=== PATIENT | male | born 1980 | race Caucasian/White ===

== ENCOUNTER 2023-08-02 14:40 | Emergency (ER) | payer BC, SELFPAY ==
[2023-08-02 14:45] VITALS: BP 150/98; PULSE 95; TEMP 36.7; O2SAT 96
--- NOTE | 2023-08-02 14:50 | XR_ITS ---
[facility] [id number] Patient Name: TIFFANIE PEACOCK MRN: [id number] date: 1980 Sex: M Assigned Patient Location: ER Current Patient Location: ER Accession/Order Number: [id number] Exam Date: 08/02/2023 15:00 Report Date: 08/02/2023 15:38 At the request of: ELLEN SAM Procedure: XR tibia fibula RT 2V EXAM: XR tibia fibula RT 2V HISTORY: fall COMPARISON: None. TECHNIQUE: AP lateral right lower leg knee to ankle. FINDINGS: No fracture or focal bone lesion. Normal mineralization. Mild spurring at the knee without joint space narrowing, small joint effusion. Ankle negative, small plantar calcaneal spur XR/XR tibia fibula RT 2V IMPRESSION: Negative for fracture or focal bone lesion. Degenerative spurring ankle and plantar calcaneus. Electronically authenticated by: SOHAIL HOOKS Date: 08/02/2023 15:38
--- NOTE | 2023-08-02 14:50 | XR_ITS ---
[address] [address] Patient Name: TIFFANIE PEACOCK MRN: [id number] date: 1980 Sex: M Assigned Patient Location: ER Current Patient Location: ER Accession/Order Number: [id number] Exam Date: 08/02/2023 15:00 Report Date: 08/02/2023 15:32 At the request of: ELLEN SAM Procedure: XR knee RT 3V EXAM: XR knee RT 3V INDICATION: fall. COMPARISON: None. TECHNIQUE: Right knee, 3 views FINDINGS: No acute fracture or dislocation. Mild tricompartmental joint space narrowing with osteophyte formation. No joint effusion. Unremarkable soft tissues. XR/XR knee RT 3V IMPRESSION: 1. No acute osseous abnormality of the right knee. 2. Mild right knee osteoarthrosis. Electronically authenticated by: TALIA AGUERO Date: 08/02/2023 15:32
[2023-08-02 14:52] VITALS: O2SAT 97
--- NOTE | 2023-08-02 14:53 | ED_ITS ---
HPI HPI - Extremity Injury (Lower) General Chief Complaint: Extremity Injury, Lower Time Seen by Provider: 08/02/23 14:46 Source: patient Mode of arrival: walk-in Limitations: no limitations History of Present Illness HPI Narrative: 43-year-old male presents for pain to his right knee and to the superior lateral aspect of his right lower leg. He fell yesterday landing on this area onto c [employer]. The ankle does not hurt and he has been able to walk. No other injury was sustained. His knee was more painful today so he came in. The pain is moderate and worse when he walks or bends. Related Data Home Medications ?Medication ?Instructions ?Recorded ?Confirmed No Known Home Medications 08/02/23 08/02/23 Allergies Allergy/AdvReac Type Severity Reaction Status Date / Time cefaclor [From [facility]] Allergy Severe Rash Verified 08/02/23 14:44 iodine AdvReac Severe passing out Verified 08/02/23 14:44 Opioid HPI Opioid Management Most Recent Pain and Opioid Data: Last Pain Scale 6 08/02/23 14:52 Last ED Pain Assessment 08/02/23 14:51 Review of Systems ROS Narrative A ten point review of systems is negative except as noted above. Exam Narrative Exam Narrative: Nurses note and vital signs reviewed and patient is not hypoxic. General: The patient appears well and in no apparent distress. Patient is resting comfortably on cart. Skin: Warm, dry, no pallor noted. There is no rash noted. Head: Normocephalic, atraumatic Eye: Normal conjunctiva, no drainage Ears, Nose, Mouth, and Throat: oral mucosa is moist. Nares patent. Cardiovascular: Regular Rate and Rhythm Respiratory: Patient is in no distress, no accessory muscle use, lungs are clear to auscultation, no wheezing, rales or rhonchi Back: non-tender GI: Soft and nontender Musculoskeletal: The right knee is mildly swollen compared to the contralateral. The knee joint is stable. He has some tenderness on the superior lateral aspect of the right lower leg as well. Ankle is nontender Neurological: A&O, normal speech Psychiatric: Cooperative Constitutional Vital Signs, click to edit/add: Last Vital Signs Temp 98.1 F 08/02/23 14:45 Pulse 95 H 08/02/23 14:45 Resp 20 08/02/23 14:45 BP 150/98 H 08/02/23 14:45 Pulse Ox 97 08/02/23 14:52 O2 Del Method Room Air 08/02/23 14:52 Course Vital Signs Vital signs: Vital Signs Temperature 98.1 F 08/02/23 14:45 Pulse Rate 95 H 08/02/23 14:45 Respiratory Rate 20 08/02/23 14:45 Blood Pressure 150/98 H 08/02/23 14:45 Pulse Oximetry 96 08/02/23 14:45 Temperature 98.1 F 08/02/23 14:45 Pulse Rate 95 H 08/02/23 14:45 Respiratory Rate 20 08/02/23 14:45 Blood Pressure 150/98 H 08/02/23 14:45 Pulse Oximetry 97 08/02/23 14:52 Oxygen Delivery Method Room Air 08/02/23 14:52 MDM - Extremity Injury (Lower) MDM Narrative Medical decision making narrative: X-rays per radiologist showed no acute findings. Karson wrap applied and application checked by me and found to be appropriate, he is neurovascular intact. He was offered crutches but states he has some at home that he can utilize and orthopedic follow-up appointment was made for him. Treatment diagnosis and follow-up were discussed with the patient. Differential Diagnosis Differential diagnosis: Likely acute internal derangement of knee and other (Knee fracture, fibula fracture) Imaging Data Knee x-ray: Radiologist's impression: ITS Impressions Knee X-Ray 08/02/23 14:50 IMPRESSION: 1. No acute osseous abnormality of the right knee. 2. Mild right knee osteoarthrosis. Electronically authenticated by: TALIA AGUERO Date: 08/02/2023 15:32 Tibia/Fibula X-Ray 08/02/23 14:50 IMPRESSION: Negative for fracture or focal bone lesion. Degenerative spurring ankle and plantar calcaneus. Electronically authenticated by: SOHAIL HOOKS Date: 08/02/2023 15:38 Discharge Plan Discharge Stand Alone Forms: Portal Instructions Chief Complaint: Extremity Injury, Lower Clinical Impression: Right knee sprain Patient Disposition: Home, Self-Care Time of Disposition Decision: 15:45 Condition: Good Mode of Transportation: Private Vehicle Prescriptions / Home Meds: No Action No Known Home Medications Print Language: Portuguese Instructions: Knee Sprain (ED), Crutch Instructions (ED), How to Use an Elastic Bandage (ED) Additional Instructions: Ice and elevate. Take Motrin for swelling. See Dr. Duarte at 10:30 AM on August 09 Referrals: AUGUSTINA RUTHERFORD [Primary Care Provider] - 1 week Reid Duarte MD [Physician] - 1 week
== END 2023-08-02 15:54 | disposition home or self-care (01) ==
PROVIDERS: Emergency Provider Emergency Medicine; PCP Family Medicine
DX: S83.91XA Sprain of unspecified site of right knee, initial encounter (principal); W19.XXXA Unspecified fall, initial encounter
CPT/HCPCS: 73562; 73590; 99284

== ENCOUNTER 2024-10-27 13:14 | Outpatient (OUT) | payer OTHER, SELFPAY ==
--- OUTSIDE RECORDS SUMMARY | 2024-09-01 11:00 | XMS_ITS | Encounter Summary ---
Author Organization [facility] Address [address] [place] [address] Care Team Providers Care First Breaker Feeder Name Role Phone Chinmay Welsh MD Primary Care Provider [phone] Reason for Referral * Imaging (Routine) - Closed Specialty Diagnoses / Procedures Referred By Contac t Referred To Contact Radiology Diagnoses Coccyx pain Nontraumatic coccydynia Procedures MR lumbar spine wo contrast Jackson Busby MD [address] [facility] [address] [address] Phone: tel: fax: [facility] [address] [place] [address] Phone: tel: fax: Referral ID Status Reason Start Date Expiration Date Visits Re quested Visits Authorized [id number] Closed 09/01/2024 02/28/2025 1 1 Reason for Visit * Consultation (Routine) - Closed Specialty Diagnoses / Procedures Referred By Contac t Referred To Contact Neurology Diagnoses Coccyx pain Procedures [place] OFFICE/OUTPATIENT [facility] 60 MINUTES Chinmay Welsh MD [address] [facility] [address] [place] [address] Phone: tel: fax: Jackson Busby MD [address] [place] [address] Phone: tel: fax: Referral ID Status Reason Start Date Expiration Date V isits Requested Visits Authorized [id number] Closed Specialty Services Required 05/26/2024 11/22/2024 1 1 Encounter Details Date Type Department Care Team (Late st Contact Info) Description 09/01/2024 11:00 AM EDT Office Visit [facility] [address] [place] [address] Jackson Busby MD [address] [facility] [address] [place] [id number] Coccyx pain (Primary Dx); Nontraumatic coccydynia Social History Tobacco Use Types Packs/Day Years Used Date Smoking Tobacco: Never Smokeless Tobacco: Never Alcohol Use Standard Drinks/Week Comments Yes 2 (1 standard drink = 0.6 oz pure alcohol) Caffeine intake: 1-2 cups per day soda/pop Sex and Gender Information Value Date Recorded Sex Assigned at Not on file Legal Sex Male 7:08 PM EDT Gender Identity Not on file Sexual Orientation Not on file documented as of this encounter Last Filed Vital Signs Vital Sign Reading Time Taken Comments Blood Pressure - - Pulse - - Temperature - - Respiratory Rate - - Oxygen Saturation - - Inhaled Oxygen Concentration - - Weight 118 kg (260 lb) 09/01/2024 11:04 AM EDT Height 190.5 cm (6' 3 ) 09/01/2024 11:04 AM EDT Body Mass Index 32.5 09/01/2024 11:04 AM EDT documented in this encounter Progress Notes * Jackson Busby MD - 09/01/2024 11:00 AM EDT Images from the original note were not included. Subjective Ralph Jaquez is a 44 y.o. male who presents for Coccyx pain History of Present Illness The patient presents with a primary complaint of tailbone pain. He has been experiencing persistent tailbone pain for the past 2 to 3 years, which he initially disregarded. The pain is constant, regardless of activity or posture. Prolonged sitting exacerbates thediscomfort, while standing alleviates it. Lying flat on his back also induces pain, but sleeping onhis side provides some relief. The pain has progressively worsened over time, with minimal relief currently. Sitting on hard surfaces intensifies the pain, but standing and walking do not exacerbate it. He reports no history of trauma to the area. The onset of the pain was gradual, starting as a minor discomfort that he initially ignored. He has not taken any pain medications for this condition. He was referred to a specialist by Dr. Del Cid, who initially suspected a cyst. However, imaging studies revealed no cystic formation. He underwent an MRI approximately a year ago. He has lost significant weight, dropping from 320 pounds to 235 pounds, but has since regained 35 pounds. He reports no tingling or numbness. His current occupation involves a lot of sitting and walking, but he reports no limitations in walking distance due to the pain. SOCIAL HISTORY: Occupations: Works for the [employer] in [place]; previously worked for the [employer] for 14+ years. MEDICATIONS CURRENT MEDS: Insulin Review of Systems Const: Denies appetite change, fever, chills. Allergy: Denies medication reaction. Ocular: Denies visual acuity change. ENT: Denies hearing change. Endoc: Denies weight loss. Resp: Denies dyspnoea, wheezing. Cardiac: Denies angina, palpitations. GI: Denies nausea, vomiting. Haem: Denies bleeding. : Denies incontinence. MSK: Denies arthralgias, joint oedema. Derm: Denies rash, hair loss. Neuro: Denies ataxia, tremor. Also see HPI for elements of ROS documented therein and for details of positive findings, which shall supersede the foregoing. Objective Height 6' 3 , weight 260 lb. Physical Exam Cranial Nerve Examination CN XI: Shoulder shrug and head turn are normal. GENERAL EXAMINATION Appearance: in no acute distress, well developed, well nourished. Head: normocephalic, atraumatic. Eyes: pupils equal, round, reactive to light and accommodation. Ears: normal. Mouth: mucosa moist. Throat: clear. Neck: neck supple, full range of motion, no cervical lymphadenopathy. Skin: no suspicious lesions, warm and dry. Heart: no murmurs, regular rate and rhythm, S1, S2 normal. Lungs: clear to auscultation bilaterally. Abdomen: normal, bowel sounds present, soft, nontender, nondistended. Extremities: no clubbing, cyanosis, or edema. NEUROLOGICAL EXAMINATION Mental Status: The patient is alert and oriented to person, place, and time. Except as noted, thought content, form, and comprehension was normal. Phonation, articulation, resonance, and prosody are normal. Cranial Nerves: Pupils were 4.0 millimeters, equal, round, and reactive to light and accommodation,both directly and consensually. Visual talbot were full by confrontation. There was no ptosis; extra-ocular movements were full; and there was no nystagmus. Funduscopic exam is normal. Masseters are of normal strength. Facial movement is normal. Hearing is grossly intact. There is no dysarthria. The gag reflex is equal bilaterally. Sternocleidomastoids and trapezii are of normal strength. The tongue protrudes in the midline. Motor: Muscle testing was performed in all four extremities, including at least assembler dc field ring, finger abductors, biceps, triceps, deltoid, toe flexors and extensors, tibialis anterior, triceps surae, quadriceps femoris, biceps femoris, and iliopsoases. Tone is normal. Muscle bulk is normal. Fasciculations are not seen . Pronator drift was not evident. Sensory: Sensation to touch, temperature, and vibration was normal in the arms, legs and face. Romberg is negative. Reflexes: Biceps, triceps, brachioradialis are 2/4 bilaterally. Patellar and Achilles reflexes are 2/4 bilaterally. Plantar responses were flexor bilaterally. Coordination: Dysmetria and dysdiadochokinesia are absent. Tremor is absent; dystonia is absent; chorea is absent. Gait And Station: Station and gait are normal. Apraxia and spasticity are not evident. Arm swing isnormal. Toe, heel, and tandem walking are performed without difficulty. Musculoskeletal: Trigger-point tenderness was absent. There is no spasm of the trapezii or paraspinals. Motor Examination Muscle Bulk and Tone: Normal muscle bulk and tone. Strength: Strength is 5/5 in upper and lower extremities. -Pain to palpation of Coccyx Results Imaging - MRI of the tailbone: No cyst in the tailbone area (2022) Assessment & Plan 1. Nontraumatic coccydynia. The patient's symptoms are consistent with nontraumatic coccydynia, characterized by chronic irritation of the coccyx. The etiology could be multifactorial, potentially involving nerve irritation or chronic inflammation. Weight loss and diabetes may also contribute to the condition. A flexion-extens ion x-ray will be ordered to assess any movement in the tailbone area. Additionally, an MRI of the lumbar region will be conducted to evaluate for any changes or previously undetected abnormalities. He will be prescribed Celebrex 200 mg twice daily to determine if an anti-inflammatory medication can alleviate the symptoms. The prescription will be sent to [facility] in [place]. A note will be sent to Dr. Del Cid regarding the patient's condition and treatment plan. 2. I will obtain an MRI of the lumbar spine to assess for a structural lesion including degenerative lumbar spine disease which may be contributing to the patient's symptoms. 3. Start Celebrex 200 mg po BID 4. X-ray of lumbar 5 views with flexion and extension. Follow-up The patient will follow up in 4 weeks to review the results of the diagnostic tests and discuss theeffectiveness of the anti-inflammatory medication. This clinical note was created utilizing [employer] documentation system. All information has beenthoroughly reviewed, corrected as necessary, and authenticated by the provider to ensure accuracy and completeness. On occasion, [employer] documentation system erroneously drops words or replaces aspoken word with a similar sounding word. Please notify with any questions or concerns regarding this clinical note. documented in this encounter Plan of Treatment Upcoming Encounters Date Type Department Care Team (Late st Contact Info) Description 11/14/2024 10:30 AM EDT Evaluation [facility] [address] [facility] [address] [place] [address] Sandra Pearson, RADHA 11/18/2024 10:00 AM EDT Treatment [facility] [address] [facility] [address] [place] [address] Dread Weaver, KATINA 11/29/2024 9:00 AM EDT Office Visit [facility] [address] [facility] [address] [place] [address] Chinmay Welsh MD [address] [facility] [address] [place] [address] (Fax) 01/27/2025 11:15 AM EST Office Visit [facility] [address] [place] [address] Jackson Busby MD [address] [facility] [address], [place] [address] documented as of this encounter Results * MR lumbar spine wo contrast (09/07/2024 9:45 AM EDT) Anatomical Region Laterality Modality Spine, L-spine Magnetic Resonan ce 09/07/2024 10:3 0 AM EDT Narrative 09/07/2024 10:30 AM EDT TITLE OF EXAM: MR LUMBAR SPINE WO CONTRAST REASON FOR EXAM: Tailbone pain, no injury TECHNIQUE: Multisequence, multiplanar MRI of the lumbar spine COMPARISON: Lumbar spine radiographs 09/01/2024 FINDINGS: General findings: There are 5 included nonrib-bearing lumbar vertebrae. No fracture; normal vertebral body heights. Anatomic alignment of the vertebral bodies and posterior elements. Marrow: No appreciable signal abnormality, though evaluation is hindered on the STIR sequence by poor [id number], in part related to body habitus. Spinal canal: No mass. Normal cord signal and caliber. No thickening/clumping of cauda equina nerve roots. The conus medullaris is at the level of L1-2. There is epidural lipomatosis at L4-S1 which does not contribute to significant spinal canal stenosis. Paraspinal muscles and visualized soft tissues: Mild lower erector spinae atrophy/fatty replacement. Degenerative findings: T12-L1: Mild degenerative disc disease with reduced intervertebral space. Small broad-based disc bulging with tiny left paracentral component. Mild bilateral neural foraminal and minimal spinal canal stenosis. L1-2: Minimal disc bulging. Mild bilateral neural foraminal and minimal spinal canal stenosis. L2-3: Minimal disc bulging. Mild to moderate left and mild right neural foraminal and minimal spinal canal stenosis. L3-4: Minimal disc bulging. Mild to moderate bilateral neural foraminal stenosis. No significant spinal canal narrowing. L4-5: Mild to moderate degenerative disc disease with reduced intervertebral space. Broad-based disc bulge. Mild bilateral facet osteoarthrosis. Moderate right and mild to moderate left neural foraminal stenosis. Minimal spinal canal narrowing. L5-S1: Minimal disc bulging. Moderate right and mild left facet osteoarthrosis. Mild bilateral neural foraminal stenosis. No spinal canal narrowing. IMPRESSION: 1. No fracture or significant listhesis. 2. Degenerative changes as detailed, most significantly contributing to moderate neural foraminal stenosis on the right at L4-5. Spinal canal stenosis is no greater than minimal at any level. DICTATED ON: 09/07/2024 8:15 AM This report has been electronically signed and approved by the interpreting radiologist. Procedure Note Richmond Pierre MD - 09/07/2024 TITLE OF EXAM: MR LUMBAR SPINE WO CONTRAST REASON FOR EXAM: Tailbone pain, no injury TECHNIQUE: Multisequence, multiplanar MRI of the lumbar spine COMPARISON: Lumbar spine radiographs 09/01/2024 FINDINGS: General findings: There are 5 included nonrib-bearing lumbar vertebrae.No fracture; normal vertebral body heights. Anatomic alignment of thevertebral bodies and posterior elements. Marrow: No appreciable signal abnormality, though evaluation is hinderedon the STIR sequence by poor [id number], in part related to bodyhabitus. Spinal canal: No mass. Normal cord signal and caliber. Nothickening/clumping of cauda equina nerve roots. The conus medullaris isat the level of L1-2. There is epidural lipomatosis at L4-S1 which doesnot contribute to significant spinal canal stenosis. Paraspinal muscles and visualized soft tissues: Mild lower erector spinaeatrophy/fatty replacement. Degenerative findings: T12-L1: Mild degenerative disc disease with reduced intervertebral space.Small broad-based disc bulging with tiny left paracentral component. Mildbilateral neural foraminal and minimal spinal canal stenosis. L1-2: Minimal disc bulging. Mild bilateral neural foraminal and minimalspinal canal stenosis. L2-3: Minimal disc bulging. Mild to moderate left and mild right neuralforaminal and minimal spinal canal stenosis. L3-4: Minimal disc bulging. Mild to moderate bilateral neural foraminalstenosis. No significant spinal canal narrowing. L4-5: Mild to moderate degenerative disc disease with reducedintervertebral space. Broad-based disc bulge. Mild bilateral facetosteoarthrosis. Moderate right and mild to moderate left neural foraminalstenosis. Minimal spinal canal narrowing. L5-S1: Minimal disc bulging. Moderate right and mild left facetosteoarthrosis. Mild bilateral neural foraminal stenosis. No spinal canalnarrowing. IMPRESSION: 1. No fracture or significant listhesis. 2. Degenerative changes as detailed, most significantly contributing tomoderate neural foraminal stenosis on the right at L4-5. Spinal canalstenosis is no greater than minimal at any level. DICTATED ON: 09/07/2024 8:15 AM This report has been electronically signed and approved by theinterpreting radiologist. us Jackson Busby MD IMG MRI PROCEDURES Final Resu lt * XR lumbar spine complete 4+ views (09/01/2024 11:38 AM EDT) Anatomical Region Laterality Modality Spine, L-spine Radiographic Lilly ging 09/02/2024 3:30 PM EDT Narrative 09/02/2024 3:30 PM EDT EXAM: XR Lumbar Spine, Eight Views. REASON FOR EXAM: Mid tailbone pain, no injury FINDINGS: There is mild thoracolumbar curvature convex to the right. The alignment is normal. Vertebral body height is normal at each level. No fracture or bone destruction is evident. IMPRESSION: Negative lumbar spine series. *This report is generated using voice recognition reporting ([employer]). On occasion [employer] erroneously drops words from the report or replaces the spoken word with similar sounding words. Please call with any questions/concerns regarding this report.* Dictated and transcribed 09/02/24/dpd This report has been electronically signed and approved by the interpreting radiologist. Procedure Note Cameron Gar MD - 09/02/2024 EXAM: XR Lumbar Spine, Eight Views. REASON FOR EXAM: Mid tailbone pain, no injury FINDINGS: There is mild thoracolumbar curvature convex to the right.The alignment is normal. Vertebral body height is normal at each level. Nofracture or bone destruction is evident. IMPRESSION: Negative lumbar spine series. *This report is generated using voice recognition reporting ([employer]).On occasion [employer] erroneously drops words from the report orreplaces the spoken word with similar sounding words. Please call with anyquestions/concerns regarding this report.* Dictated and transcribed 09/02/24/dpd This report has been electronically signed and approved by theinterpreting radiologist. us Jackson Busby MD IMG XR PROCEDURES Final Resul t documented in this encounter Visit Diagnoses Diagnosis Coccyx pain- Primary Other disorder of coccyx Nontraumatic coccydynia Nontraumatic coccydynia Coccyx pain Other disorder of coccyx Nontraumatic coccydynia documented in this encounter Care Teams First Breaker Feeder Relationship Specialty Start Date End Date Chinmay Welsh MD PCP - General Family Medicine 09/18/22 documented as of this encounter
--- OUTSIDE RECORDS SUMMARY | 2024-10-26 12:00 | XMS_ITS | Encounter Summary ---
Author Organization [facility] Address [address] [place] [address] Care Team Providers Care Swage Tender Name Role Phone Chinmay Welsh MD Primary Care Provider + [phone] Reason for Referral * Consultation (Routine) - Authorized Specialty Diagnoses / Procedures Referred By Srinivasan t Referred To Contact Pain Medicine Diagnoses Spondylosis of lumbar region without myelopathy or radiculopathy Procedures [place] OFFICE/OUTPATIENT NEW [facility] 60 MINUTES Richa Banuelos NP [address], [address] [address] Phone: tel: fax: Anoop Louis MD [address] [place] [address], [address], [place] [address] Phone: tel: fax: Referral ID Status Reason Start Date Expiration Date Visits Requested Visits Authorized [id number] Authorized Specialty Services Required 10/26/2024 04/24/2025 1 1 * Rehabilitation - Outpatient (Routine) - Authorized Specialty Diagnoses / Procedures Referred By Contac t Referred To Contact Physical Therapy Diagnoses Spondylosis of lumbar region without myelopathy or radiculopathy Procedures [place] OFFICE/OUTPATIENT [facility] 60 MINUTES Richa Banuelos NP [address], [address] [address] Phone: tel: fax: Sandra Pearson PT Referral ID Status Reason Start Date Expiration Date Visits Requested Visits Authorized [id number] Authorized Specialty Services Required 11/14/2024 04/24/2025 45 45 Encounter Details Date Type Department Care Team (Latest Contact Info) Description 10/26/2024 12:00 PM EDT Office Visit [facility] [address] [place] [address] Richa Banuelos NP 5339 [facility] , [facility] [address] [place] [address] Spondylosis of lumbar region without myelopathy or radiculopathy (Primary Dx); Nontraumatic coccydynia Social History Tobacco [...] Sign Reading Time Taken Comments Blood Pressure 130/90 10/26/2024 12:06 PM EDT Pulse - - Temperature - - Respiratory Rate - - Oxygen Saturation - - Inhaled Oxygen Concentration - - Weight 118 kg (261 lb) 10/26/2024 12:06 PM EDT Height 190.5 cm (6' 3 ) 10/26/2024 12:06 PM EDT Body Mass Index 32.62 10/26/2024 12:06 PM EDT documented in this encounter Progress Notes * Richa Banuelos NP - 10/26/2024 12:00 PM EDT Images from the original note were not included. CHIEF COMPLAINT REASON FOR VISIT : Patient is here today for follow-up of the diagnosis below. I amfollowing the plan of care established by Dr Busby, 08/2024, who is present in the office today HPI: BACK PAIN -persistent tailbone pain for the past 2 to 3 years -pain has worsened over time but pretty much the same over the last year -The pain is constant, varies -sitting and laying makes the pain worse -standing will relieve the pain -no radiation into the legs -pain is aching -denies N/T -no issues with bowel or bladder -he sits at work so pain is bad by the time he gets home -sleep is poor due to shift work and pain -no injury reported CURRENT MEDICATIONS: ALLERGIES/DISCONTINUE MEDICATIONS Current Outpatient Medications Medication Instructions atorvastatin (LIPITOR) 20 mg, Oral, Daily Basaglar KwikPen 30 Units, Subcutaneous, Nightly Continuous Glucose Inspector And Sorter (FreeStyle Bhavna 2 [place]) device Use prior to each dose of insulin andas needed for symptoms Continuous Glucose Sensor (FreeStyle Bhavna 2 Sensor) misc Wear subcutaneous daily every 14 days EPINEPHrine (Epipen) 0.3 MG/0.3ML injection syringe 1 Syringe, As needed insulin lispro (HumaLOG KWIKPEN) 100 UNIT/ML injection Take sliding scale coverage subcutaneous tidwith meals; Less than 70 eat, 70-150 0(zero) units, 150-200 2 units, 200-250 4 units, >250 6 units. Maximum monthly dose 540 units losartan (COZAAR) 100 mg, Oral, Daily nebivolol (BYSTOLIC) 10 mg, Oral, Daily pen needle 32G x 6 mm misc Injection subcutaneous QID as directed pioglitazone (ACTOS) 30 mg, Oral, Daily Allergies Allergen Reactions Bee Pollen Other Reaction(s): local swelling Cefaclor Rash Iodine Rash Wound Dressing Adhesive Rash There are no discontinued medications. PAST MEDICAL HISTORY: SURGICAL/SOCIAL/FAMILY HISTORY DEPRESSION SCREEN: Past Medical History: Diagnosis Date Asthma (HCC) Body mass index (BMI) of 40.1 to 44.9 in adult ([facility]) Bone spur Insulin resistance Migraine headache Morbid obesity ([facility]) Past Surgical History: Procedure Laterality Date ADENOIDECTOMY HAND SURGERY Left [address] Barron LYMPH NODE DISSECTION 2001 from Lt. thigh MYRINGOTOMY W/ TUBES tubes in ears x 4 childhood WISDOM TOOTH EXTRACTION 2013 Social History Tobacco Use Smoking status: Never Smokeless tobacco: Never Vaping Use Vaping status: Never Used Substance Use Topics Alcohol use: Yes Alcohol/week: 2.0 standard drinks of alcohol Types: 2 Standard drinks or equivalent per week Comment: Caffeine intake: 1-2 cups per day soda/pop Drug use: Never Family History Problem Relation Name Age of Onset Other (Knee and shoulder surgery) Father Heart disease Maternal Grandmother Heart disease Maternal Grandfather Depression: Not on file REVIEW OF SYMPTOMS: Review of Systems Constitutional: Negative for chills and fever. HENT: Negative for congestion. Eyes: Negative for visual disturbance. Respiratory: Negative for cough and shortness of breath. Cardiovascular: Negative for chest pain and palpitations. Gastrointestinal: Negative for abdominal pain, nausea and vomiting. Genitourinary: Negative for difficulty urinating. Musculoskeletal: Positive for back pain. Negative for gait problem and neck pain. Neurological: Negative for dizziness, tremors, weakness, numbness and headaches. Psychiatric/Behavioral: Negative for agitation. OBJECTIVE: 09/07/2024 2:21 PM 09/01/2024 11:04 AM 05/26/2024 8:43 AM Vitals BMI 33.12 kg/m2 32.5 kg/m2 33.12 kg/m2 BSA (m2) 2.52 m2 2.5 m2 2.52 m2 Systolic 126 130 Diastolic 70 80 Height (in) 6' 3 6' 3 6' 3 Weight (lb) 265 260 265 Visit Report Report Report Report EXAM: Neurological Exam Mental Status Awake, alert and oriented to person, place and time. Recent and remote memory are intact. Speech isnormal. Language is fluent with no aphasia. Attention and concentration are normal. Fund of knowledge is appropriate for level of education. Cranial Nerves CN II: Visual talbot full to confrontation. CN III, IV, : Extraocular movements intact bilaterally. Normal lids and orbits bilaterally. Pupils equal round and reactive to light bilaterally. CN V: Facial sensation is normal. CN VII: Full and symmetric facial movement. CN VIII: Hearing is normal. CN IX, X: Palate elevates symmetrically. Normal gag reflex. CN XI: Shoulder shrug strength is normal. CN XII: Tongue midline without atrophy or fasciculations. Motor Strength is 5/5 throughout all four extremities. Sensory Light touch is normal in upper and lower extremities. Temperature is normal in upper and lower extremities. Vibration is normal in upper and lower extremities. Reflexes Deep tendon reflexes are 2+ and symmetric in all four extremities. Coordination Right: Zfjipx-te-vheb normal. Rapid alternating movement normal. Kvbc-iz-hpai normal.Left: Bitxvo-dq-hxrg normal. Rapid alternating movement normal. Ekaj-ro-vuyl normal. Gait Casual gait is normal including stance, stride, and arm swing. PROCEDURE: NONE ASSESSMENT AND PLAN: EVALUATION: 08/2024 MRI Lumbar Spine Multilevel DDD worst at L4/5 with moderate foraminal narrowing 08/2024 XR Lumbar Spine was negative for instability Nontraumatic coccydynia. The patient's symptoms are consistent with nontraumatic coccydynia, characterized by chronic irritation of the coccyx. The etiology could be multifactorial, potentially involving nerve irritation or chronic inflammation. He is on Celebrex 200 mg twice daily to determine if an anti-inflammatory medic ation can alleviate the symptoms. I will add a low dose muscle relaxer and have ordered PT for strengthening and reduced pain. I will refer him to pain management for possible S1/2 facet injections based on MRI report. He denies radicular symptoms at this point Diagnoses and all orders for this visit: Spondylosis of lumbar region without myelopathy or radiculopathy - Ambulatory referral to Physical Therapy; Future - tiZANidine (Zanaflex) 4 MG tablet; Take 1 tablet (4 mg) by mouth at bedtime - celecoxib (CeleBREX) 200 MG capsule; Take 1 capsule (200 mg) by mouth in the morning and 1 capsule (200 mg) before bedtime. - Ambulatory referral to Pain Medicine; Future Nontraumatic coccydynia PLAN: MRI and XR of the lumbar spine reviewed Continue Celebrex 200 mg po BID Add tizanidine 2-4mg at bed Possible side effects reviewed PT for back pain and strengthening Referred to pain management for possible facet injections I will see the patient back in 3 months, or sooner if needed, to make further recommendations documented in this encounter Plan of Treatment Upcoming Encounters Date Type Department Care Team (Late st Contact Info) Description 11/14/2024 10:30 AM EDT Evaluation [facility] [address] [facility] [address] [place] [address] Sandra Pearson, PT 11/18/2024 10:00 AM EDT Treatment [facility] [address] [place] [address] Charles WeaverallKATINA 11/29/2024 9:00 AM EDT Office Visit [facility] [address] [place] [address] Chinmay Welsh MD 112 [facility] [address] [place] [address] 01/27/2025 11:15 AM EST Office Visit [facility] [address] [facility] [address] [place] [address] Jackson Busby MD 7120 [facility] [address] [id number] Scheduled Referrals Name Type Priority Associated Diagnoses Orde r Schedule Ambulatory referral to Physical Therapy Outpatient Referral Routine Spondylosis of lumbar region without myelopathy or radiculopathy Expected: 10/26/2024 (Approximate), Expires: 04/28/2025 Ambulatory referral to Pain Medicine Outpatient Referral Routine Spondylosis of lumbar region without myelopathy or radiculopathy Expected: 10/26/2024 (Approximate), Expires: 04/28/2025 documented as of this encounter Visit Diagnoses Diagnosis 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 documented in this encounter Care Teams Swage Tender Relationship Specialty Start Date End Date Chinmay Welsh MD (Fax) PCP - General Family Medicine 09/18/22 documented as of this encounter
--- OUTSIDE RECORDS SUMMARY | 2024-10-27 13:17 | XMS_ITS | Encounter Summary ---
Author Organization [facility] Address [address] [place] [address] Care Team Providers Care Student Loan Counselor Name Role Phone Chinmay Welsh MD Primary Care Provider [phone] Encounter Details Date Type Department Care Team (Late st Contact Info) Description 10/26/2024 Bamboo flowsheet [facility] [address] [place] [address] Richa Banuelos, GYPSUM CALCINER [address], [facility] [address] [place] [address] Social History Tobacco Use Types Packs/Day Years [...] on file documented as of this encounter Plan of Treatment Upcoming Encounters Date Type Department Care Team (Late st Contact Info) Description 11/14/2024 10:30 AM EDT Evaluation [facility] [address] [facility] [address] [place] [address] Sandra Pearson PT 11/18/2024 10:00 AM EDT Treatment [facility] [address] [place] [address] [place] [address] Dread Weaver PTA 11/29/2024 9:00 AM EDT Office Visit [facility] 112 [facility] 100 [place] [address] Chinmay Welsh MD 112 [facility] 100 [place] [address] 01/27/2025 11:15 AM EST Office Visit [facility] [address] [facility] [address] [place] [address] Jackson Busby MD 8358 [facility] [address] [address] documented as of this encounter Visit Diagnoses Not on filedocumented in this encounter Care Teams Student Loan Counselor Relationship Specialty Start Date End Date Chinmay Welsh MD (Fax) PCP - General Family Medicine 09/18/22 documented as of this encounter
--- OUTSIDE RECORDS SUMMARY | 2024-10-27 13:17 | XMS_ITS | Encounter Summary ---
Author Organization [facility] Address [address] [place] [address] Care Team Providers Care Water Taxi Operator Name Role Phone Chinmay Welsh MD Primary Care Provider + [phone] Encounter Details Date Type Department Care Team (Late st Contact Info) Description 09/07/2024 Results Follow-Up [facility] [address] [facility] [address] [place] [address] Jackson Busby MD [address] [facility] [address] [place] [address] Social History Tobacco Use Types Packs/Day Years [...] Physical Therapy [address] [place] [address] Sandra Pearson, RADHA 11/18/2024 10:00 AM EDT Treatment [facility] [address] [place] [address] Dread Weaver, SHOW OPERATIONS SUPERVISOR 11/29/2024 9:00 AM EDT Office Visit [facility] [address] [place] [address] Chinmay Welsh MD 112 [facility] 100 [place] [address] 01/27/2025 11:15 AM EST Office Visit [facility] [address] [facility] [address] [place] [address] Jackson Busby MD [address] [facility] [address] [address] documented as of this encounter Visit Diagnoses Not on filedocumented in this encounter Care Teams Water Taxi Operator Relationship Specialty Start Date End Date Chinmay Welsh MD (Fax) PCP - General Family Medicine 09/18/22 documented as of this encounter
--- OUTSIDE RECORDS SUMMARY | 2024-10-27 13:17 | XMS_ITS | Clinical Summary ---
Author Organization [facility] Healthcare Address [address] [place] [address] Care Team Providers Care Data Services Developer Name Role Phone Chinmay Welsh MD Primary Care Provider + [phone] Allergies Active Allergy Reactions Criticality Noted Date Comments Bee Pollen 06/10/2023 Other Reaction(s): local swelling Cefaclor Rash Low 06/10/2023 Iodine Rash Low 06/10/2023 Wound Dressing Adhesive Rash Low 06/10/2023 Medications EPINEPHrine (Epipen) 0.3 MG/0.3ML injection syringe Inject 1 Syringe as directed if needed (allergic reaction) 07/17/19 23 Active Continuous Glucose Oxyacetylene Cutter (FreeStyle Bhavna 2 [place]) deviceIndications :Type 2 diabetes mellitus with diabetic microalbuminuria, with long-term current use of insulin (HCC) Use prior to each dose of insulin and as needed for symptoms 1 each 12/15/19 24 Active pen needle 32G x 6 mm miscIndications:T ype 2 diabetes mellitus with diabetic microalbuminuria, with long-term current use of insulin (HCC) Injection subcutaneous QID as directed 200 each 3 12/15/19 24 Active pioglitazone (Actos) 30 MG tabletIndications :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 Maximum monthly dose 540 units 6 mL 08/06/19 25 Active nebivolol (Bystolic) 10 MG tabletIndications :Primary hypertension Take 1 tablet (10 mg) by mouth Daily 90 tablet 09/08/19 25 025 Active atorvastatin (Lipitor) 20 MG tabletIndications :Mixed dyslipidemia Take 1 tablet (20 mg) by mouth Daily 90 tablet 09/08/19 25 025 Active Continuous Glucose Sensor (FreeStyle Bhavna 2 Sensor) miscIndications:L atent autoimmune diabetes in adults (BRUCE), managed as type 1 (HCC) Wear subcutaneous daily every 14 days 6 each 3 09/08/19 Active losartan (Cozaar) 100 MG tabletIndications :Essential hypertension Take 1 tablet (100 mg) by mouth Daily 90 tablet 09/17/19 25 Active insulin glargine (Basaglar KwikPen) 100 UNIT/ML penIndications:La tent autoimmune diabetes in adults (BRUCE), managed as type 1 (HCC) Inject 30 Units under the skin at bedtime 09/22/19 25 025 Active tiZANidine (Zanaflex) 4 MG tabletIndications :Spondylosis of lumbar region without myelopathy or radiculopathy Take 1 tablet (4 mg) by mouth at bedtime 30 tablet 2 10/27/19 25 025 Active celecoxib (CeleBREX) 200 MG capsuleIndication s:Spondylosis of lumbar region without myelopathy or radiculopathy Take 1 capsule (200 mg) by mouth in the morning and 1 capsule (200 mg) before bedtime. 60 capsule 2 10/27/19 25 025 Active celecoxib (CeleBREX) 200 MG capsuleIndication s:Nontraumatic coccydynia Take 1 capsule (200 mg) by mouth in the morning and 1 capsule (200 mg) before bedtime. 60 capsule 11 09/02/19 25 025 celecoxib (CeleBREX) 200 MG capsule Take 200 mg by mouth in the morning and 200 mg before bedtime. 025 Discontinu ed(Reorder ) Active Problems Problem Noted Date Diagnosed Date Latent autoimmune diabetes i n adults (BRUCE), managed as type 1 05/26/2024 Type 1 diabetes mellitus with hyperglycemia 08/2024 Type 1 diabetes mellitus with diabetic microalbu minuria 05/26/2024 Overweight (BMI 25.0-29.9) 12/15/2023 Nontraumatic coccydynia 07/09/2023 Adjustment disorder with depressed mood 06/10/19 Dependence on other enabling machines and device s 06/10/2023 Primary hypertension 06/10/2023 Hypertensive nephropathy 06/10/2023 Microalbuminuria 06/10/2023 Migraine with aura and witho ut status migrainosus, not intractable 06/10/2023 Mixed dyslipidemia 06/10/2023 Non morbid obesity due to excess calories 2023 Venous insufficiency 06/10/2023 Obstructive sleep apnea (adult) (pediatric) 03/25 Procreative management 04/17/2016 Resolved Problems Problem Noted Date Diagnosed Date Resolved Date Type 2 diabetes mellitus wit h hyperglycemia, without long-term current use of insulin 06/10/2023 05/26/2024 Encounters Date Type Department Care Team Description 10/26/2024 12:00 PM EDT Office Visit [facility] [place] [facility] [address] [facility] [address] [place] [address] Richa Banuelos NP Spondylosis of lumbar region without myelopathy or radiculopathy (Primary Dx); Nontraumatic coccydynia 10/26/2024 Bamboo flowsheet [facility] [address] [place] [address] Richa Banuelos NP 10/26/2024 Travel 10/06/2024 Refill [facility] [address] [place] [address] [address] [address] [place] [address] Chinmay Welsh MD 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), managed as type 1 ([facility]) 09/16/2024 Telephone [facility] 112 [facility] 100 [place] [address] Chinmay Welsh MD 09/07/2024 2:30 PM EDT Office Visit [facility] [place] [address] [place] [address] Chinmay Welsh MD Primary hypertension ; Hypertensive nephropathy ; Microalbuminuria; 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), managed as type 1 (HCC); 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); Type 1 diabetes mellitus with hyperglycemia (HCC); Mixed dyslipidemia ; Non morbid obesity due to excess calories 09/07/2024 9:15 AM EDT Ancillary Procedure [facility] [address] [place] [address] Coccyx pain; Nontraumatic coccydynia 09/07/2024 Results Follow-Up [facility] [place] [facility] [address] [place] [place] [address] Jackson Busby MD 09/07/2024 Travel 09/01/2024 11:30 AM EDT Ancillary Procedure [facility] [address] [place] [address] Nontraumatic coccydynia 09/01/2024 11:00 AM EDT Office Visit [facility] [address] [place] [address] Jackson Busby MD Coccyx pain (Primary Dx); Nontraumatic coccydynia 09/01/2024 Travel 08/04/2024 Refill [facility] [place] [address] [place] [address] Chinmay Welsh MD Primary hypertension ; 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), managed as type 1 (HCC) from Last 3 Months Family History Medical History Relation Name Comments Knee and shoulder surgery Father Heart disease Maternal Grandfather Heart disease Maternal Grandmother Relation Name Status Comments Father Alive Maternal Grandfather Maternal Grandmother Mother Alive Sister x1 Social History Tobacco Use Types Packs/Day Years Used Date Smoking Tobacco: Never Smokeless Tobacco: Never Tobacco Cessation:Counseling Given: Yes Alcohol Use Standard Drinks/Week Comments Yes 2 (1 standard drink = 0.6 oz pure alcohol) Caffeine intake: 1-2 cups per day soda/pop Sex and Gender Information Value Date Recorded Sex Assigned at Not on file Legal Sex Male 7:08 PM EDT Gender Identity Not on file Sexual Orientation Not on file Last Filed Vital Signs Vital Sign Reading Time Taken Comments Blood Pressure 130/90 10/26/2024 12:06 PM EDT Pulse 72 12/15/2023 8:58 AM EDT Temperature - - Respiratory Rate - - Oxygen Saturation 97% 12/15/2023 8:58 AM EDT Inhaled Oxygen Concentration - - Weight 118 kg (261 lb) 10/26/2024 12:06 PM EDT Height 190.5 cm (6' 3 ) 10/26/2024 12:06 PM EDT Body Mass Index 32.62 10/26/2024 12:06 PM EDT Plan of Treatment Upcoming Encounters Date Type Department Care Team (Late st Contact Info) Description 11/14/2024 10:30 AM EDT Evaluation [facility] 112 [facility] [address] [place] [address] Sandra Pearson, RADHA 11/18/2024 10:00 AM EDT Treatment [facility] [address] [facility] [address] [place] [address] Dread Weaver, KATINA 11/29/2024 9:00 AM EDT Office Visit [facility] Family Medicine 112 [facility] 100 [place] [address] Chinmay Welsh MD [address] [place] [facility] 100 [place] [address] 01/27/2025 11:15 AM EST Office Visit [facility] [place] [facility] [address] [facility] [address] [place] [address] Jackson Busby MD [address] [facility] [address] [place] [id number] Health Maintenance Due Date Last Done Comments Diabetes: Urine Protein Screening 11/17/2024 11/18/2023, 04/29/2021, 01/22/2018 Influenza Vaccine (#1) 2024 Diabetes: Hemoglobin A1C 12/06/2024 025, 05/18/2024, 11/18/2023, Additional history exists Diabetes: Retinopathy Screening 06/14/2026 06/14/2024, 04/08/2022, 04/05/2021, Additional history exists Procedures Procedure Name Priority Date/Time Associated Diagnosis Comments MR LUMBAR SPINE WO CONTRAST Routine 09/07/2024 9:45 AM EDT Coccyx pain Nontraumatic coccydynia HEMOGLOBIN A1C Routine 09/05/2024 8:18 AM EDT 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), managed as type 1 (HCC) XR LUMBAR SPINE COMPLETE 4+ VIEWS Routine 09/01/2024 11:38 AM EDT Nontraumatic coccydynia COLOR FUNDUS PHOTOGRAPHY - OU - BOTH EYES Routine 06/14/2024 1:08 PM EDT Type 2 diabetes mellitus with hyperglycemia, without long-term current use of insulin (HCC) Type 1 diabetes mellitus with hyperglycemia (HCC) MICROALBUMIN / CREATININE URINE RATIO Routine 11/18/2023 10:27 AM EDT Essential hypertension Hypertensive nephropathy Microalbuminuria Type 2 diabetes mellitus with hyperglycemia, without long-term current use of insulin (HCC) from Last 3 Months or Most Recently Relevant to Health Maintenance Results * MR lumbar spine wo contrast [...] hindered on the STIR sequence by poor [id number], in part related to body habitus. Spinal [...] is hinderedon the STIR sequence by poor [id number], in part related to bodyhabitus. Spinal canal: [...] by theinterpreting radiologist. us Jackson Busby MD IM MRI PROCEDURES Final Resu lt * (ABNORMAL) Hemoglobin A1c (09/05/2024 8:18 AM EDT) Hemoglobin A1C 10.9(H) <5.7 % [facility] Comment: For someone without known diabetes, a hemoglobin A1c value of 6.5% or greater indicates that they may have diabetes and this should be confirmed with a follow-up test. For someone with known diabetes, a value <7% indicates that their diabetes is well controlled and a value greater than or equal to 7% indicates suboptimal control. A1c targets should be individualized based on duration of diabetes, age, comorbid conditions, and other considerations. Currently, no consensus exists regarding use of hemoglobin A1c for diagnosis of diabetes for children. Blood Venous blood specimen / Unknown 09/05/2024 8:18 AM EDT 09/05/2024 3:43 PM EDT Narrative Resulting Agency Comment Performing Organization Information Site ID: QPT Name: [facility] Address: [address] [facility] [place] [address] Director: Walker Stephens MD Chinmay Welsh MD LAB BLOOD ORDERABLES Final R esult [facility] * XR lumbar spine complete 4+ views [...] report is generated using voice recognition reporting ([employer]). On occasion Sumbolacribe erroneously drops words from the report or [...] report is generated using voice recognition reporting ([employer]).On occasion Sumbolacribe erroneously drops words from the report orreplaces the spoken word with similar sounding words. Please call with anyquestions/concerns regarding this report.* Dictated and transcribed 09/02/24/dpd This report has been electronically signed and approved by theinterpreting radiologist. Jackson Busby MD IMG XR PROCEDURES Final Resul t * Color Fundus Photography - OU - Both Eyes (06/14/2024 1:08 PM EDT) Anatomical Region Laterality Modality Head Fundus Photograp hy Chinmay Welsh MD OPHTH PHOTOGRAPHY Final Resu lt * Microalbumin / creatinine, urine ratio (11/18/2023 10:27 AM EDT) CREATININE, RANDOM URINE 154 20 - 320 mg/dL [facility] ALBUMIN, URINE 3.7 See Note: mg/dL [facility] Comment: Reference Range: Reference Range Not established ALBUMIN/CREATININE RATIO, RANDOM URINE 24 <30 mg/g creat [facility] Comment: The ADA defines abnormalities in albumin excretion as follows: Albuminuria Category Result (mg/g creatinine) Normal to Mildly increased <30 Moderately increased 30-299 Severely increased > OR = 300 The ADA recommends that at least two of three specimens collected within a 3-6 month period be abnormal before considering a patient to be within a diagnostic category. Urine Urine specimen obtained by clean catch procedure / Unknown 11/18/2023 10:27 AM EDT 11/18/2023 10:28 AM EDT Narrative [facility] - 11/25/2023 4:11 PM EDT FASTING:YES FASTING: YES Resulting Agency Comment Performing Organization Information Site ID: QPT Name: [facility] Address: [address] [place] [address], [address] [place] [id number] Director: Walker Stephens MD Chinmay Welsh MD LAB URINE ORDERABLES Final R esult [facility] from Last 3 Months or Most Recently Relevant to Health Maintenance Insurance [employer] Care Teams Data Services Developer Relationship Specialty Start Date End Date Chinmay Welsh MD PCP - General Family Medicine 09/18/22
--- OUTSIDE RECORDS SUMMARY | 2024-10-27 13:17 | XMS_ITS | Clinical Summary ---
Author Organization [facility] Address [address] [place] [address] Care Team Providers Care Service Center Specialist Name Role Phone Unavailable Primary Care Provider Unavailabl e Medications doxycycline monohydrate 100 mg tablet Take 1 tab by mouth BID. 42 tablet 04/24/2016 Active Active Problems Problem Noted Date Diagnosed Date Procreative management 04/17/2016 Social History Tobacco Use Types Packs/Day Years Used Date Smoking Tobacco: Never Assessed Sex and Gender Information Value Date Recorded Sex Assigned at Not on file Legal Sex Male 8:56 AM EST Gender Identity Not on file Sexual Orientation Not on file Plan of Treatment Health Maintenance Due Date Last Done Comments Anxiety Screening 02/19/1998 Depression Screening 02/19/1998 HIV Screening 02/19/1998 Hepatitis C Screening 02/19/1998 DTaP,Tdap,Td Vaccine (1 - Tdap) 02/19/1999 Hepatitis B Vaccine (1 of 3 - 19+ 3-dose series) 02/19 Lipid Screening 02/19/2015 Influenza Vaccine (#1) 2024 Insurance [employer]
--- OUTSIDE RECORDS SUMMARY | 2024-10-27 13:17 | XMS_ITS | Encounter Summary ---
Author Organization [facility] Address [address] [place] [address] Care Team Providers Care Electro Tech Name Role Phone Chinmay Welsh MD Primary Care Provider [phone] Encounter Details Date Type Department Care Team (Latest Contact Info) Description 10/26/2024 Travel Social History Tobacco Use Types Packs/Day Years [...] Physical Therapy [address] [place] [address] [place] [address] Sandra Pearson, PT 11/18/2024 10:00 AM EDT Treatment [facility] [address] [place] [place] [address] Dread Weaver, KATINA 11/29/2024 9:00 AM EDT Office Visit [facility] Family Medicine [address] [place] [address] Chinmay Welsh MD [address] [place] [address] (Fax) 01/27/2025 11:15 AM EST Office Visit [facility] [place] [facility] [address] [facility] [address] [place] [address] Jackson Busby MD [address] [facility] [address] [address] documented as of this encounter Visit Diagnoses Not on filedocumented in this encounter Care Teams Electro Tech Relationship Specialty Start Date End Date Chinmay Welsh MD PCP - General Family Medicine 09/18/22 documented as of this encounter
--- NOTE | 2024-10-27 14:04 | PM.CN ---
Consult Note: HPI Data of Consult Patient: new to practice Consult date: 10/27/24 Requesting Physician: Nereida Levine NP Primary Care Provider: AUGUSTINA RUTHERFORD Consult Narrative Reason for consult: tailbone pain Narrative: Ralph Jaquez a pleasant 44 year old male presents for evaluation and management of chronic tailbone pain, referred by neurology who recommends s1/2 facet injections. recent mri consistent with degenerative changes and lumbar disc bulge. pt has failed to benefit from > 6 weeks of HEP as well as > 3 months of property caretaker, heat, ice, tylenol, nsaids. currently utilizing celebrex, starting tizanidine today as directed by neurology. pain today 5/10 increasing to 10/10 with sitting, lying, and sleeping. cc:: CC: Nereida Levine NP Meds Home Medications and Allergies Home Medications ?Medication ?Instructions ?Recorded ?Confirmed ?Type No Known Home Medications 08/02/23 08/02/23 History Allergies Allergy/AdvReac Type Severity Reaction Status Date / Time cefaclor (From Ceclor) Allergy Severe Rash Verified 08/02/23 14:44 iodine AdvReac Severe passing out Verified 08/02/23 14:44 Exam Constitutional Documenting provider has reviewed patient's vital signs: yes Common normals: no apparent distress, oriented x3, healthy appearing, alert and well nourished General appearance: cooperative HENNY Common normals: normocephalic, hearing grossly normal bilaterally and moist oral mucous membranes Head and scalp: normocephalic Eye Common normals: PERRL Pupil: PERRL Neck & C-Spine Common normals: full ROM General: normal visual inspection Chest Common normals: inspection of chest normal Respiratory Common normals: normal respiratory effort, no retractions and no use of accessory muscles Back & Pelvis Lumbar spine/lower back: no pain with ROM and no lumbar spinal tenderness Sacroiliac joints: SI joints normal Coccyx: tenderness (intermittent S1/2 pain/radiculopathy ) on direct palpation Other: significant coccyx pain with sitting and lying decreased sensation bilateral S1/2 strength 5/5 in BLE Neuro Common normals: oriented x3 Sensorium/orientation: alert Psych Common normals: mental status grossly normal, thought process normal, cooperative, affect normal, speech normal and activity/motor behavior normal Speech: normal speech Thought process: normal thought process Results Additional Findings Additional findings: If on a controlled substance or opioids, I have checked an OARRS report on this patient and there are no aberrancies noted in the prescribing history.??If on a controlled substance or opioid a drug screen was completed and reviewed within the last year, and if there has not been a drug screen completed we ordered one today to monitor higher risk, state monitored pain medication use. As part of providing excellent, safe, comprehensive care, the following was completed at our patient's visit: 1. A medication reconciliation and review to ensure accurate knowledge of current/active medications, including asking our patients to inform us about any [id number]-[id number] medications or herbal remedies/nutritional supplements/alternative remedies. 2. A review to specifically ensure our patients have had annual screening for screening for depression, screening for tobacco use, and screening for unhealthy alcohol use. For concerning screenings had a discussion with the patient, provided patient education, and recommended follow-up with primary care provider when appropriate. If patient noted with a risk of falling, they received education on strength, gait, and balance training to prevent future risk of falling. Portions of this note may have been carried over from the previous visit and updated as appropriate. Please note this office utilizes paper charting in addition to the electronic medical record. A list of current medications, vitals, and PMH is available there as the clinical staff outside of myself do not have access to Logical Apps charting during the clinic day operations. As part of providing quality comprehensive care the current medications, vitals, and PMH were reviewed in the paper chart. Assessment and Plan Assessment and Plan (1) Sacral radiculopathy: Assessment and Plan: The patient has had over 3 months of moderate to severe coccyx pain with functional impairment and inadequate response to conservative care including NSAIDS (unless there are contraindication such as concurrent blood thinners), multiple oral or topical pain medications, and home exercise program/physical therapy.? Patient has completed >6 weeks of guided home exercise program and/or formal physical therapy program without relief of their symptoms.? The Oswestry Disability Index was completed, and the patient scored a 24%.? The patient noted the following:?? moderate to severe pain impacting sleep, social life, sitting, sleeping, travel (2) Coccydynia: Plan 44 year old male with severe tailbone pain for 3 years without injury, minimal exam findings as noted above. neurology recommending pt undergo sacral facet injections, which are not an option. will trial bilateral S1 TFESI under fluoroscopy. continue current medications. f/u 2 weeks after injection
== END 2024-10-27 13:15 | disposition home or self-care (01) ==
LOC: PM 13:15
PROVIDERS: PCP Family Medicine; Visit Provider Nurse Practitioner
DX: M54.18 Radiculopathy, sacral and sacrococcygeal region (principal); M53.3 Sacrococcygeal disorders, not elsewhere classified
CPT/HCPCS: G0463

== ENCOUNTER 2024-11-07 10:18 | Day surgery (SDC) | payer OTHER, SELFPAY ==
--- OUTSIDE RECORDS SUMMARY | 2023-08-10 06:30 | XMS_ITS ---
Author Organization [facility] Address [address] [place] [address] Care Team Providers Care Wildlife Removal Specialist Name Role Phone SANGEETA JACKSON, AUGUSTINA Primary Care Provider Unavail Reid Chavez [facility] [phone] REASON FOR VISIT [facility] ER f/u RT knee injury Encounters Encounter Location Date Provider Diagnosis [facility] [address] [place] [address] [place] [address] 08/10/2023 Reid Duarte Plan Of Treatment No Information Progress Notes * TIFFANIE PEACOCK HDOB:[birth year] (44 yo M)Acc No.[id number]:08/10/2023 Patient: TIFFANIE ALMARAZ Provider: Day Duarte MD :1980 A ge:43 Y S ex:Male Date:08/10/2023 Address:[address] [place] [address], [id number] Pcp:AUGUSTINA RUTHERFORD MD Subjective: * Chief Complaints: * 1 . [facility] ER f/u RT knee injury. * Medical History: Objective: * Vitals: Assessment: Plan: * Treatment: Forms: * Images: * Electronic signature of Yury Duarte MD on 11/07/2024 at 10:21 AM EDT Sign off status: Pending * Provider: Day Duarte MD Date: 08/10/2023 Generated for Printi ng/Faxing/eTransmitting on: 11/07/2024 10:21 AM EDT
--- OUTSIDE RECORDS SUMMARY | 2024-10-26 12:00 | XMS_ITS | Encounter Summary ---
Author Organization [facility] Address [address] [place] [address] Care Team Providers Care Geospatial Imagery Intelligence Analyst Name Role Phone Chinmay Welsh MD Primary Care Provider + [phone] Reason for Referral * Consultation (Routine) - Authorized Specialty Diagnoses / Procedures Referred By Srinivasan t Referred To Contact Pain Medicine Diagnoses Spondylosis of lumbar region without myelopathy or radiculopathy Procedures [place] OFFICE/OUTPATIENT [facility] 60 MINUTES Richa Banuelos NP [address], [address] [address] Phone: tel: fax: Anoop Louis MD [address] [place] [address], [address], [place] [address] Phone: tel: fax: Referral ID Status Reason Start Date Expiration Date Visits Requested Visits Authorized [id number] Authorized Specialty Services Required 10/26/2024 04/24/2025 1 1 * Rehabilitation - Outpatient (Routine) - Authorized Specialty Diagnoses / Procedures Referred By Contac t Referred To Contact Physical Therapy Diagnoses Spondylosis of lumbar region without myelopathy or radiculopathy Procedures [place] OFFICE/[facility]PATIENT [facility] 60 MINUTES Richa Banuelos NP [address], [address] [address] Phone: tel: fax: Sandra Pearson PT Referral ID Status Reason Start Date Expiration Date Visits Requested Visits Authorized [id number] Authorized Specialty Services Required 11/14/2024 04/24/2025 45 45 Encounter Details Date Type Department Care Team (Latest Contact Info) Description 10/26/2024 12:00 PM EDT Office Visit [facility] [address] [place] [address] Richa Banuelos NP 5333 [facility] , [facility] [address] [place] [address] Spondylosis of lumbar region without [...] KwikPen 30 Units, Subcutaneous, Nightly Continuous Glucose Small Lot Operator (FreeStyle Bhavna 2 [place]) device Use prior to each dose of [...] (BMI) of 40.1 to 44.9 in adult ([facility]) Bone spur Insulin resistance Migraine headache Morbid obesity ([facility]) Past Surgical History: Procedure Laterality Date ADENOIDECTOMY [...] symmetric in all four extremities. Coordination Right: Aluzyd-kx-nenz normal. Rapid alternating movement normal. Jxgf-sk-vmvm normal.Left: Pattva-oo-izfq normal. Rapid alternating movement normal. Bsms-ps-tjai normal. Gait Casual gait is normal including [...] EDT Evaluation [facility] 112 [facility] [address] [place] [address] Sandra Pearson, PT 11/18/2024 10:00 AM EDT Treatment [facility] [address] [place] [address] Charles WeaverallKATINA 11/29/2024 9:00 AM EDT Office Visit [facility] [address] [place] [address] Chinmay Welsh MD 112 [facility] [address] [place] [address] 01/27/2025 11:20 AM EST Office Visit [facility] [address] [facility] [address] [place] [address] Jackson Busby MD 9[address] [facility] [address] [phone] Scheduled Referrals Name Type Priority Associated Diagnoses [...] coccydynia documented in this encounter Care Teams Geospatial Imagery Intelligence Analyst Relationship Specialty Start Date End Date Chinmay Welsh MD (Fax) PCP - General Family Medicine 09/18/22 documented as of this encounter
--- OUTSIDE RECORDS SUMMARY | 2024-11-07 10:21 | XMS_ITS | Encounter Summary ---
Author Organization [facility] Address [address] [place] [address] Care Team Providers Care Biofuels Production Associate Name Role Phone Chinmay Welsh MD Primary Care Provider + [phone] Encounter Details Date Type Department Care Team (Late st Contact Info) Description 09/07/2024 Results Follow-Up [facility] [address] [place] [address] Jackson Busby MD [address] [facility] [address] [place] [address] MR lumbar spine wo contrast Social History Tobacco Use Types Packs/Day Years [...] Physical Therapy [address] [place] [address] Sandra Pearson PT 11/18/2024 10:00 AM EDT Treatment [facility] [address] [place] [address] BrDread chinchilla, COIL CONNECTOR 11/29/2024 9:00 AM EDT Office Visit [facility] Family Medicine 112 [facility] 100 [place] [address] Chinmay Welsh MD 112 [facility] 100 [place] [address] 01/27/2025 11:20 AM EST Office Visit [facility] [address] [facility] [address] [place] [address] Jackson Busby MD [address] [facility] [address] [address] documented as of this encounter Visit Diagnoses Not on filedocumented in this encounter Care Teams Biofuels Production Associate Relationship Specialty Start Date End Date Chinmay Welsh MD (Fax) PCP - General Family Medicine 09/18/22 documented as of this encounter
--- OUTSIDE RECORDS SUMMARY | 2024-11-07 10:21 | XMS_ITS | Patient Health Record ---
Author Organization [facility] Address [address] [place] [address] Care Team Providers Care Fleet Service Manager Name Role Phone AUGUSTINA RUTHERFORD MD Primary Care Provider Unavail able Reason For Referral No Information Plan Of Treatment No Information Insurance Providers Payer Name Payer Address Payer Phone Subscriber Number Group Number Insured Name Patient Relationship to Insured Coverage Start Date Coverage End Date [facility] [address] [place] [address] [id number] TIFFANIE PEACOCK Self - patient is the insured
--- OUTSIDE RECORDS SUMMARY | 2024-11-07 10:22 | XMS_ITS | Encounter Summary ---
Author Organization [facility] Address [address] [place] [address] Care Team Providers Care Placement Coordinator Name Role Phone Chinmay Welsh MD Primary Care Provider + [phone] Encounter Details Date Type Department Care Team (Late st Contact Info) Description 10/26/2024 Bamboo flowsheet [facility] [address] [place] [address] Richa Banuelos, A OPERATOR [address] Paul, [facility] [address] [place] [address] Social History Tobacco Use Types [...] [facility] [address] [facility] [address] [place] [id number] Sandra Pearson PT 11/18/2024 10:00 AM EDT Treatment [facility] [address] [place] [address] [place] [phone] Dread Weaver PTA 11/29/2024 9:00 AM EDT Office Visit [facility] 112 [facility] 100 [place] [address] Chinmay Welsh MD 112 [facility] 100 [place] [address] 01/27/2025 11:20 AM EST Office Visit [facility] [address] [facility] [address] [place] [address] Jackson Busby MD 2183 [facility] [address] [address] documented as of this encounter Visit Diagnoses Not on filedocumented in this encounter Care Teams Placement Coordinator Relationship Specialty Start Date End Date Chinmay Welsh MD (Fax) PCP - General Family Medicine 09/18/22 documented as of this encounter
--- OUTSIDE RECORDS SUMMARY | 2024-11-07 10:22 | XMS_ITS | Clinical Summary ---
Author Organization [facility] Address [address] [place] [address] Care Team Providers Care Job Foreman Name Role Phone Chinmay Welsh MD Primary Care Provider + [phone] Allergies Active Allergy Reactions Criticality Noted Date Comments Bee Pollen 06/10/2023 Other Reaction(s): local swelling Cefaclor Rash Low 06/10/2023 Iodine Rash Low 06/10/2023 Wound Dressing Adhesive Rash Low 06/10/2023 Medications EPINEPHrine (Epipen) 0.3 MG/0.3ML injection syringe Inject 1 Syringe as directed if needed (allergic reaction) 07/17/19 23 Active Continuous Glucose Helper/Driver (FreeStyle Bhavna 2 [place]) deviceIndications :Type 2 diabetes mellitus with diabetic [...] monthly dose 540 units 6 mL 08/06/19 Active nebivolol (Bystolic) 10 MG tabletIndications :Primary [...] under the skin at bedtime 09/22/19 25 Active tiZANidine (Zanaflex) 4 MG tabletIndications :Spondylosis [...] 25 025 Active celecoxib (CeleBREX) 200 MG capsule Take 200 mg by mouth in the morning and 200 mg before bedtime. 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), managed as type 1 (HCC) 09/16/2024 Telephone [facility] [address] [place] [address] [place] [address] Chinmay Welsh MD 09/07/2024 2:30 PM EDT Office Visit [facility] [place] [address] Chinmay Welsh MD Primary hypertension ; Hypertensive nephropathy ; Microalbuminuria; 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), managed as type 1 (HCC); 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); Type 1 diabetes mellitus with hyperglycemia (HCC); Mixed dyslipidemia ; Non morbid obesity due to excess calories 09/07/2024 9:15 AM EDT Ancillary Procedure [facility] [address] [place] [address] [place] [address] Coccyx pain; Nontraumatic coccydynia 09/07/2024 Results Follow-Up [facility] [address] [place] [address] [place] [address] Jackson Busby MD MR lumbar spine wo contrast 09/07/2024 Travel 09/01/2024 11:30 AM EDT Ancillary Procedure [facility] [address] [address] [place] [address] [place] [address] Nontraumatic coccydynia 09/01/2024 11:00 AM EDT Office Visit [facility] [address] [place] [address] [place] [address] Jackson Busby MD Coccyx pain (Primary Dx); Nontraumatic coccydynia 09/01/2024 Travel from Last 3 Months Family History Medical [...] EDT Evaluation [facility] [address] [facility] 170 [place] [address] Sandra Pearson, PT 11/18/2024 10:00 AM EDT Treatment [facility] [address] [facility] 170 [place] [address] Dread Weaver, HYDRO GENERATION SUPERVISOR 11/29/2024 9:00 AM EDT Office Visit [facility] [address] [facility] 100 [place] [address] Chinmay Welsh MD 112 [facility] 100 [place] [address] 01/27/2025 11:20 AM EST Office Visit [facility] [address] [facility] 310 [place] [address] Jackson Busby MD 45[address] [facility] [address] [place] [phone] Health Maintenance Due Date Last Done Comments [...] hindered on the STIR sequence by poor [id number], in part related to body habitus. Spinal [...] is hinderedon the STIR sequence by poor [id number], in part related to bodyhabitus. Spinal canal: [...] IMG MRI PROCEDURES Final Resu lt * (ABNORMAL) [...] Performing Organization Information Site ID: QPT Name: [employer] [facility] Address: [address] [facility], 4 [place] [address] Director: Walker Stephens MD Chinmay Welsh MD [...] report is generated using voice recognition reporting (Xen[employer]). On occasion PowerScribe erroneously drops words from the report or replaces the spoken word with similar sounding words. Please call with any questions/concerns regarding this report.* Dictated and transcribed 09/02/24dpd This report has been electronically signed and [...] report is generated using voice recognition reporting (gestigone).On occasion PowerScribe erroneously drops words from the report orreplaces [...] Performing Organization Information Site ID: QPT Name: [employer] [facility] Address: [address] [place] [address], [address] [place] [id number] Director: Walker Stephens MD Chinmay Welsh MD LAB URINE ORDERABLES Final R esult Performing Organization Address City/State/[facility] Co de Phone Number [facility] from Last 3 Months or Most Recently Relevant to Health Maintenance Insurance [employer] Care Teams Job Foreman Relationship Specialty Start Date End Date Chinmay Welsh MD PCP - General Family Medicine 09/18/22
--- OUTSIDE RECORDS SUMMARY | 2024-11-07 10:22 | XMS_ITS | Encounter Summary ---
Author Organization [facility] Address [address] [place] [address] Care Team Providers Care Global Climate Change Analyst Name Role Phone Chinmay Welsh MD Primary Care Provider [phone] Encounter Details Date Type Department Care Team [...] Physical Therapy [address] [place] [address] [place] [address] Sandra Pearson, PT 11/18/2024 10:00 AM EDT Treatment [facility] [address] [place] [address] [place] [address] Dread Weaver, KATINA 11/29/2024 9:00 AM EDT Office Visit [facility] [address] [place] [address] [place] [address] Chinmay Welsh MD [address] [place] [address] (Fax) 01/27/2025 11:20 AM EST Office Visit [facility] [place] [facility] [address] [facility] 310 [place] [address] Jackson Busby MD 3094 [facility] [address] [address] documented as of this encounter Visit Diagnoses Not on filedocumented in this encounter Care Teams Global Climate Change Analyst Relationship Specialty Start Date End Date Chinmay Welsh MD PCP - General Family Medicine 09/18/22 documented as of this encounter
--- OUTSIDE RECORDS SUMMARY | 2024-11-07 10:30 | XMS_ITS | CCD ---
Author Organization [facility] Care Team Providers Care Dba Manager Name Role Phone Pcp, No Primary Care Provider Unavaillevy RUTHERFORD, DR JACKMAN Primary Care Unavailable PAY, DR MORENO Admitting Unavailable PAY, DR MORENO Attending Unavailable PAY, DR MORENO Consulting Unavailable SANGEETA, DR JACKMAN Primary Care Unavailable MARYANN ELLIOTT Admitting Unavailable MARYANN ELLIOTT Attending Unavailable BASILIO, DR CAPRI Kraus Consulting Unavailable MARYANN ELLIOTT Consulting Unavailable Chyna Thomas Unavailable Augustina Rutherford MD Unavailable uAgustina Rutherford MD Primary Care Provider Augustina Rutherford MD Unavailable Augustina Rutherford MD Primary Care Provider [phone] Augustina Rutherford MD Primary Care Provider AUGUSTINA RUTHERFORD Attending Unavailable ALICIA BUSBY Attending Unavailable AUGUSTINA RUTHERFORD Referring Unavailable ALICIA BUSBY Referring Unavailable ALICIA BUSBY Referring Unavailable AUGUSTINA RUTHERFORD Attending Unavailable FLAKITA MUKHERJEE Attending Unavailable AUGUSTINA RUTHERFORD Attending Unavailable NATALIIA RAINES Attending Unavailable AUGUSTINA RUTHERFORD Referring Unavailable NATALIIA RAINSE Attending Unavailable Allergies Allergy Classification Reported Allergen(s) Allergy Type Date of Onset Reaction(s) Facility (1 source) Adhesive Tape Propensity to adverse reactions Unknown [facility] Other (1 source) Cefaclor Drug Allergy Unknown [facility] Other (19 sources) Iodine Drug Allergy 4 Rash [facility] Other (1 source) Beeswax Drug allergy hives [employer] Other (18 sources) Bee pollen Allergy to substance 4 [facility] (18 sources) Cefaclor Drug Allergy 4 Rash [facility] (18 sources) Wound Dressing Adhesive Drug Allergy 4 Rash [facility] Medications Current Medications Medication Drug Class(es) Dates Sig (Normalized) Sig (Original) atorvastatin 20 mg oral tablet (20 sources) HMG-CoA Reductase Inhibitor Start: 05-26-2024 End: 12-06-2024 take 1 tablet by mouth once daily atorvastatin (Lipitor) 20 MG tablet Indications: Mixed dyslipidemia Take 1 tablet (20 mg) by mouth Daily 90 tablet 09/07/2024 12/06/2024 Active Start: 07-16-2022 End: 05-26-2024 take 1 tablet by mouth once daily atorvastatin (Lipitor) 40 MG tablet Take 40 mg by mouth Daily 07/16/2022 05/26/2024 Discontinued (Reorder) celecoxib 200 mg oral capsule (8 sources) Nonsteroidal Anti-inflammatory Drug Start: 09-01-2024 End: 01-24-2025 take 1 capsule by mouth in the morning celecoxib (CeleBREX) 200 MG capsule Indications: Spondylosis of lumbar region without myelopathy or radiculopathy Take 1 capsule (200 mg) by mouth in the morning and 1 capsule (200 mg) before bedtime. 60 capsule 2 10/26/2024 01/24/2025 Active Continuous Glucose Production Control Supervisor (FreeStyle Bhavna 2 Bryant) device (16 sources) Start: 12-15-2023 Continuous Glucose Production Control Supervisor (FreeStyle Bhavna 2 Bryant) device Indications: Type 2 diabetes mellitus with diabetic microalbuminuria, with long-term current use of insulin (HCC) Use prior to each dose of insulin and as needed for symptoms 1 each 12/15/2023 Active Start: 12-15-2023 Continuous Glu cose Production Control Supervisor (FreeStyle Bhavna 2 Bryant) device Indications: Type 2 diabetes mellitus with diabetic microalbuminuria, with long-term current use of insulin ([facility]/HCC) Use prior to each dose of insulin and as needed for symptoms 1 each 12/15/2023 Active Continuous Glucose Sensor (FreeStyle Bhavna 2 Sensor) misc (20 sources) Start: 09-07-2024 Continuous Glu cose Sensor (FreeStyle Bhavna 2 Sensor) misc Indications: 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), managed as type 1 (HCC) Wear subcutaneous daily every 14 days 6 each 3 09/07/2024 Active Start: 05-26-2024 End: 09-07-2024 Continuous Glucose Sensor (F reeStyle Bhavna 2 Sensor) misc Indications: 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), managed as type 1 (HCC) Wear subcutaneous daily every 14 days 6 each 3 05/26/2024 09/07/2024 Discontinued (Reorder) Start: 05-26-2024 Continuous Glu cose Sensor (FreeStyle Bhavna 2 Sensor) misc Indications: 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), managed as type 1 (HCC) Wear subcutaneous daily every 14 days 6 each 3 05/26/2024 Active Start: 05-26-2024 Continuous Glu cose Sensor (FreeStyle Bhavna 2 Sensor) misc Indications: 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), managed as type 1 (HCC) (CMS/HCC) Wear subcutaneous daily every 14 days 6 each 3 05/26/2024 Active Start: 12-15-2023 End: 05-26-2024 Continuous Glucose Sensor (F reeStyle Bhavna 2 Sensor) misc Indications: Type 2 diabetes mellitus with diabetic microalbuminuria, with long-term current use of insulin (CMS/HCC) Wear subcutaneous daily every 14 days 6 each 3 12/15/2023 05/26/2024 Discontinued (Reorder) Start: 12-15-2023 Continuous Glu cose Sensor (FreeStyle Bhavna 2 Sensor) misc Indications: Type 2 diabetes mellitus with diabetic microalbuminuria, with long-term current use of insulin (CMS/HCC) Wear subcutaneous daily every 14 days 6 each 3 12/15/2023 Active [id number] 0.3 ml EPINEPHrine 1 mg/ml auto-injector (18 sources) alpha-Adrenergic Agonist, beta-Adrenergic Agonist, Catecholamine Start: 07-16-2022 EPINEPHrine (Epipen) 0.3 MG/0.3ML injection syringe Inject 1 Syringe as directed if needed (allergic reaction) 07/16/2022 Active 3 ml insulin glargine 100 unt/ml pen injector (20 sources) Insulin Analog Start: 09-21-2024 End: 12-20-2024 insulin glargine (Basaglar KwikPen) 100 UNIT/ML pen Indications: 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), managed as type 1 (HCC) Inject 30 Units under the skin at bedtime 09/21/2024 12/20/2024 Active Start: 12-15-2023 End: 12-06-2024 insulin glargine (Basaglar K chesterkPen) 100 UNIT/ML pen Indications: 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 Maximum monthly dose 540 units 6 mL 1 05/26/2024 Active Start: 12-23-2023 End: 05-26-2024 insulin lispro (HumaLOG KWIK PEN) 100 UNIT/ML injection Indications: Type 2 diabetes mellitus with diabetic microalbuminuria, with long-term current use of insulin (CMS/HCC) Take sliding scale coverage subcutaneous tid with meals; Less than 70 eat, 70-150 0(zero) units, 150-200 2 units, 200-250 4 units, >250 6 units. Maximum monthly dose 540 units 6 mL 1 12/23/2023 05/26/2024 Discontinued (Reorder) losartan potassium 100 mg oral tablet (18 sources) Angiotensin 2 Receptor Dalila Start: 07-16-2022 End: 12-15-2024 take 1 tablet by mouth once daily losartan (Cozaar) 100 MG tablet Indications: Essential hypertension Take 1 tablet (100 mg) by mouth Daily 90 tablet 09/16/2024 12/15/2024 Active nebivolol 10 mg oral tablet (10 sources) Start: 08-05-2024 End: 12-06-2024 take 1 tablet by mouth once daily nebivolol (Bystolic) 10 MG tablet Indications: Primary hypertension Take 1 tablet (10 mg) by mouth Daily 90 tablet 09/07/2024 12/06/2024 Active pioglitazone 30 mg oral tablet (20 sources) Peroxisome Proliferator Receptor alpha Agonist, Peroxisome Proliferator Receptor gamma Agonist, Thiazolidinedione Start: 07-16-2022 End: 06-25-2024 take 1 tablet by mouth once daily pioglitazone (Actos) 30 MG tablet Indications: 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), managed as type 1 (HCC) Take 1 tablet (30 mg) by mouth Daily 30 tablet 05/26/2024 Active tiZANidine 4 mg oral tablet (2 sources) Central alpha-2 Adrenergic Agonist Start: 10-26-2024 End: 01-24-2025 take 1 tablet by mouth at bedtime tiZANidine (Zanaflex) 4 MG tablet Indications: Spondylosis of lumbar region without myelopathy or radiculopathy Take 1 tablet (4 mg) by mouth at bedtime 30 tablet 2 10/26/2024 01/24/2025 Active Completed/Discontinued Medications Medication Drug Class(es) Dates Sig (Normalized) Sig (Original) amitriptyline hydrochloride 25 mg oral tablet (14 sources) Tricyclic Antidepressant End: 09-07-2024 take 1 tablet by mouth at bedtime amitriptyline (Elavil) 25 MG tablet Take 25 mg by mouth at bedtime 09/07/2024 Discontinued (Med list cleanup) dapagliflozin 5 mg oral tablet (4 sources) Sodium-Glucose Cotransporter 2 Inhibitor Start: 07-16-2022 End: 12-15-2023 take 5 mg by mouth once daily Farxiga 5 MG Take 5 mg by mouth Daily 07/16/2022 12/15/2023 Discontinued (Therapy completed) 3 ml insulin aspart, human 100 unt/ml pen injector (2 sources) Insulin Analog Start: 12-15-2023 End: 12-23-2023 insulin aspart, with niacinamide, (Fiasp FlexTouch) 100 UNIT/ML injection Indications: Type 2 diabetes mellitus with diabetic microalbuminuria, with long-term current use of insulin ([facility]) Take sliding scale coverage subcutaneous tid with meals; Less than 70 eat, 70-150 0(zero) units, 150-200 2 units, 200-250 4 units, >250 6 units. Maximum monthly dose 540 units 6 mL 1 12/15/2023 12/23/2023 Discontinued (Formulary change) SUMAtriptan 50 mg oral tablet (14 sources) Serotonin-1b and Serotonin-1d Receptor Agonist End: 09-07-2024 take 1 tablet by mouth every two hours as needed SUMAtriptan (Imitrex) 50 MG tablet Take 50 mg by mouth See administration instructions 1 TAB NEEDED FOR BREAKTHROUGH MIGRAINES MAY REPEAT 1X AFTER 2HRS IF NO RELIEF NO MORE THAN 2/24HR 09/07/2024 Discontinued (Med list cleanup) Problems Active Problems Problem Classification Problem Date Documented Da te Episodic/Chronic Adjustment disorders (18 sources) Adjustment disorder with depressed mood; Translations: [Adjustment disorder with depressed mood] Onset: 06-10-2023 06-10-2023 Chronic Diabetes mellitus with complications (20 sources) Insulin treated type 2 diabetes mellitus; Translations: [Type 2 diabetes mellitus with other diabetic kidney complication] Onset: 06-10-2023 Resolved: 05-26-2024 12-29-2023 Chronic Diabetes mellitus without complication (16 sources) Type 2 diabetes mellitus without complications; Translations: [Latent autoimmune diabetes mellitus in adult] Onset: 12-31-2020 05-26-2024 Chronic Disorders of lipid metabolism (20 sources) Dyslipidemia; Translations: [Mixed hyperlipidemia] Onset: 06-10-2023 12-01-2023 Chronic E Codes: Struck by; against (1 source) Striking against or struck by other objects, initial encounter; Translations: [STRIKING AGNST/STRUCK OTH OBJ INIT] Onset: 07-30-2021 Episodic Essential hypertension (20 sources) Essential (primary) hypertension; Translations: [Essential hypertension] Onset: 12-31-2020 12-29-2023 Chronic Headache; including migraine (18 sources) Migraine with aura; Translations: [Migraine with aura, not intractable, without status migrainosus] Onset: 06-10-2023 06-10-2023 Chronic Hypertension with complications and secondary hypertension (20 sources) Hypertensive renal disease; Translations: [Hypertensive chronic kidney disease with stage 1 through stage 4 chronic kidney disease, or unspecified chronic kidney disease] Onset: 06-10-2023 12-01-2023 Chronic Other aftercare (1 source) Other terminal operator (current) drug therapy; Translations: [OTH ALF CURRENT DRUG THERAPY] Onset: 07-30-2021 Episodic Other connective tissue disease (3 sources) Pain in left finger(s); Translations: [PAIN IN LEFT FINGERS] Onset: 07-23-2021 Episodic Other connective tissue disease (1 source) Patellar tendonitis; Translations: [Patellar tendinitis] Episodic Other non-traumatic joint disorders (1 source) Arthralgia of the lower leg; Translations: [Left knee pain] Episodic Other nutritional; endocrine; and metabolic disorders (20 sources) Obesity caused by energy imbalance; Translations: [Other obesity due to excess calories] Onset: 06-10-2023 06-10-2023 Chronic Other screening for suspected conditions (not mental disorders or infectious disease) (2 sources) Serum/plasma protein finding; Translations: [Other specified abnormal findings of blood chemistry] 12-15-2023 Episodic Other upper respiratory infections (1 source) Acute upper respiratory infection, unspecified Episodic Residual codes; unclassified (18 sources) Dependence on enabling machine or device; Translations: [Dependence on other enabling machines and devices] Onset: 06-10-2023 06-10-2023 Chronic Residual codes; unclassified (18 sources) Obstructive sleep apnea syndrome; Translations: [Obstructive sleep apnea (adult) (pediatric)] Onset: 04-21-2017 06-10-2023 Chronic Spondylosis; intervertebral disc disorders; other back problems (6 sources) Lumbar spondylosis; Translations: [Spondylosis without myelopathy or radiculopathy, lumbar region] 10-26-2024 Chronic Spondylosis; intervertebral disc disorders; other back problems (20 sources) Pain in the coccyx; Translations: [Sacrococcygeal disorders, not elsewhere classified] Onset: 07-09-2023 07-09-2023 Episodic Superficial injury; contusion (1 source) Contusion of left thumb without damage to nail, initial encounter; Translations: [CONTUS LT THUMB NO DAMAGE NAIL INIT] Onset: 07-30-2021 Episodic Past or Other Problems Problem Classification Problem Date Documented Date Episodic/Chronic Contraceptive and procreative management (19 sources) Patient encounter status; Translations: [Encounter for procreative management, unspecified] Onset: 04-17-2016 04-17-2016 Episodic Genitourinary symptoms and ill-defined conditions (20 sources) Microalbuminuria; Translations: [Proteinuria, unspecified] Onset: 06-10-2023 12-01-2023 Episodic Malaise and fatigue (4 sources) Weakness; Translations: [WEAKNESS] Onset: 12-29-2020 Episodic Other aftercare (1 source) [facility] (current) use of oral hypoglycemic drugs; Translations: [ASSEM[employer]ER [employer] USE ORAL HYPOGLYCEMIC DX] Onset: 12-31-2020 Episodic Other diseases of veins and lymphatics (18 sources) Vascular insufficiency; Translations: [Venous insufficiency (chronic) (peripheral)] Onset: 06-10-2023 06-10-2023 Episodic Other nutritional; endocrine; and metabolic disorders (20 sources) Body mass index 25-29 - overweight; Translations: [Overweight] Onset: 12-15-2023 12-15-2023 Episodic Unclassified (1 source) Allergy history unknown; Translations: [Allergy history unknown] Results Test Name Value Interpretation Reference Range Facility MR LUMBAR SPINE WO CONTRASTo n 09-07-2024 MR LUMBAR SPINE WO CONTRAST TITLE OF EXAM: MR LUMBAR SPINE WO [...] hindered on the STIR sequence by poor [id number], in part related to body habitus. Spinal [...] signed and approved by the interpreting radiologist. Normal Not Available HEMOGLOBIN A1con 09-06-2024 HbA1c (Bld) [Mass fraction] 10.9 % High <5.7 [facility] Comment on above: Result Comment: For someone without known diabetes, a [...] A1c for diagnosis of diabetes for children. Performed By: #### 4 96 #### [facility] [address], [address] [place] [address] Manager Furniture: Walker Stephens MD XR LUMBAR SPINE COMPLETE 4+ VIEWSon 09-01-2024 XR LUMBAR SPINE COMPLETE 4+ VIEWS EXAM: XR Lumbar Spine, Eight Views. REASON FOR EXAM: Mid tailbone pain, no injury FINDINGS: There is mild thoracolumbar curvature convex to the right. The alignment is normal. Vertebral body height is normal at each level. No fracture or bone destruction is evident. IMPRESSION: Negative lumbar spine series. *This report is generated using voice recognition reporting (MedStartr). On occasion [employer] erroneously drops words from the report or replaces the spoken word with similar sounding words. Please call with any questions/concerns regarding this report.* Dictated and transcribed 09/02/24/dpd This report has been electronically signed and approved by the interpreting radiologist. Normal Not Available HEMOGLOBIN A1con 05-19-2024 HEMOGLOBIN A1c 8.4 % of total Hgb High <5.7 [facility] Comment on above: Order Comment: FASTI NG:NO FASTING: NO Result Comment: For someone without known diabetes, a [...] A1c for diagnosis of diabetes for children. Performed By: #### 4 96 #### [facility] [address] [facility] [address], [address] [place] [address] Manager Furniture: Walker Stephens MD Insulin, fastingon 4 Insulin Qn 2.9 u[IU]/mL uIU/mL [facility] are Comment on above: Reference Range < or = 18.4 Risk: Optimal < or = 18.4 Moderate NA High >18.4 Adult cardiovascular event risk category cut points (optimal, moderate, high) are based on Insulin Reference Interval studies performed at [facility] in 2021. FASTING:YES FASTING: YES [facility] Organization Information Site ID: QPT Name: [facility] Address: [address] [place], [place] [address] , [address] [place] [id number] Director: Walekr Stephens MD [facility] (SGOT)on 07-26-2021 AST [Catalytic activity/Vol] 19 U/L Normal 10-40 [facility] Finance Director Comment on above: Performed By: #### A ST, LIPD #### [facility] [address] [place], [place] [id number] Hemoglobin A1Con 07-26-2021 EAG 294.83 Normal [facility] Specialist Comment on above: Performed By: #### A 1C #### [facility] [address] [place], [place] [id number] HbA1c (Bld) [Mass fraction] 11.9 % High 4.0-6.0 [facility] Finance Director Comment on above: Performed By: #### A 1C #### [facility] [address] [place], [place] [id number] Lipid Panelon 07-26-2021 Cholesterol [Mass/Vol] 207 mg/dL High 125-200 [facility] Finance Director Comment on above: Result Comment: Low risk < 200mg/dL Borderline risk 201-239 mg/dl High risk > or equal to 240 Performed By: #### A ST, LIPD #### [facility] [address] [facility] [place] [id number] Cholesterol in HDL [Mass/Vol] 33 mg/dL Low >40 [facility] Finance Director Comment on above: Result Comment: High Cardiovascular Risk HDL <40 mg/dL Low Cardiovascular Risk HDL > or equal to 60 mg/dl Performed By: #### A ST, LIPD #### [facility] [address] [facility] [place] [id number] Cholesterol in LDL [Mass/Vol] 117 mg/dL Normal [facility] Finance Director Comment on above: Result Comment: LDL ATP III CLASSIFICATION LDL less than 100 mg/dl Optimal LDL 100-129 mg/dl Near or above optimal LDL 130-159 Borderline high LDL 160-189 High LDL greater than 189 mg/dl Very High Performed By: #### A ST, LIPD #### [facility] [address] [place], [place] [id number] Cholesterol in VLDL [Mass/Vol] 57 mg/dL Normal [facility] Specialist Comment on above: Performed By: #### A ST, LIPD #### [facility] [address] [place], [place] [id number] Cholesterol.total/C holesterol in HDL [Mass ratio] 6 {ratio} Normal [facility] Specialist Comment on above: Performed By: #### A ST, LIPD #### [facility] [address] [place], [place] [id number] Triglyceride [Mass/Vol] 284 mg/dL High 30-150 [facility] Finance Director Comment on above: Result Comment: TRIG ATPIII CLASSIFICATIONS TRIG less than 150 mg/dl Normal TRIG 150-199 mg/dl Borderline High TRIG 200-500 mg/dl High TRIG greather than 500 mg/dl Very High Performed By: #### A ST, LIPD #### [facility] [address] [place], [place] [id number] Comprehensive Metabolic [facility] 04-18-2021 Albumin [Mass/Vol] 4.4 g/dL Normal 3.6-5.1 [facility] Comment on above: Order Comment: [facility] performed at: [employer] [facility], [address] [place] [address], [address] [place] [address], [address] [place] [address], Offshore Diver: Walker Stephens MD [facility] Date/Time: [facility] Results Received Date/Time: [facility] Reported Date/Time: Performed By: #### C MP, LIPD #### [facility] Default [address] [place] [address] Albumin/Globulin [Mass ratio] 1.8 {ratio} Normal 1.0-2.5 [facility] Specialist Comment on above: Order Comment: [facility] performed at: [employer] [facility], [address], [address] [place] [address], [phone], Offshore Diver: Walker Stephens MD [facility] Date/Time: [facility] Results Received Date/Time: [facility] Reported Date/Time: Performed By: #### C MP, LIPD #### [facility] Default [address] [place] [address] ALP [Catalytic activity/Vol] 94 U/L Normal 36-130 [facility] Specialist Comment on above: Order Comment: [facility] performed at: [email or web address], [address] [place] [address], [address] [place] [address], [address] [place] [address], Offshore Diver: Walker Stephens MD [facility] Date/Time: [facility] Received Date/Time: [facility] Reported Date/Time: Performed By: #### C MP, LIPD #### [facility] [address] [place] [place] [address] ALT [Catalytic activity/Vol] 21 U/L Normal 9-46 [facility] Specialist Comment on above: Order Comment: [facility] performed at: [email or web address], [place] [facility], [address] [place] [address], [address] [place] [address], [address] [place] [address], Offshore Diver: Walker Stephens MD [facility] Date/Time: [facility] Results Received Date/Time: [facility] Reported Date/Time: Performed By: #### C MP, LIPD #### [facility] [address] [place] [address] Anion gap [Moles/Vol] 14 mmol/L Normal 12-20 [facility] Finance Director Comment on above: Order Comment: [facility] performed at: [email or web address], [place] [facility], [address] [place] [address], [address] [place] [address], [address] [place] [address], Offshore Diver: Walker Stephens MD [facility] Date/Time: [facility] Results Received Date/Time: [facility] Reported Date/Time: Result Comment: Effe ctive 03/28/2019 reference range changed. Performed By: #### C MP, LIPD #### [facility] [address] [place] [address] AST [Catalytic activity/Vol] 13 U/L Normal 10-40 [facility] Specialist Comment on above: Order Comment: [facility] performed at: [email or web address], [place] [facility], [address] [place] [address], [address] [place] [address], [address] [place] [address], Offshore Diver: Walker Stephens MD [facility] Date/Time: [facility] Received Date/Time: [facility] Reported Date/Time: Performed By: #### C MP, LIPD #### [facility] [address] [place] [address] Bilirubin [Mass/Vol] 0.5 mg/dL Normal 0.2-1.2 [facility] Specialist Comment on above: Order Comment: [facility] performed at: [employer], [place] [facility], [address] [place] [address], [address] [place] [address], [address] [place] [address], Offshore Diver: Walker Stephens MD [facility] Collection Date/Time: [facility] Results Received Date/Time: [facility] Reported Date/Time: Performed By: #### C MP, LIPD #### [facility] Default [address] [place] [address] BUN/CREA 20 NOT APPLICABLE Normal 6-22 [facility] Comment on above: Order Comment: [facility] Testing performed at: [email or web address], [place] [facility], [address] [place] [address], [address] [place] [address], [address] [place] [address], Offshore Diver: Walker Stephens MD [facility] Collection Date/Time: [facility] Results Received Date/Time: [facility] Reported Date/Time: Performed By: #### C MP, LIPD #### [facility] Default [address] [place] [address] Calcium [Mass/Vol] 9.2 mg/dL Normal 8.6-10.3 [facility] Comment on above: Order Comment: [facility] Testing performed at: QPT, [place]ie [facility], [address] [facility], [address] [place] [address], [address] [place] [address], Offshore Diver: Walker Stephens MD [facility] Collection Date/Time: [facility] Results Received Date/Time: [facility] Reported Date/Time: Performed By: #### C MP, LIPD #### [facility] Default [address] [place] [address] Chloride [Moles/Vol] 102 mmol/L Normal 98-110 [facility] Finance Director Comment on above: Order Comment: [facility] Testing performed at: [email or web address], [place] [facility], [address] [place] [address], [address] [place] [address], [address] [place] [address], Offshore Diver: Walker Stephens MD [facility] Collection Date/Time: [facility] Results Received Date/Time: [facility] Reported Date/Time: Performed By: #### C MP, LIPD #### [facility] Default [address] [place] [address] CO2 [Moles/Vol] 24 mmol/L Normal 20-32 [facility] Finance Director Comment on above: Order Comment: [facility] Testing performed at: [email or web address], [place] [facility], [address] [place] [address], [address] [place] [address], [address] [place] [address], Offshore Diver: Walker Stephens MD [facility] Collection Date/Time: [facility] Results Received Date/Time: [facility] Reported Date/Time: Performed By: #### C MP, LIPD #### [facility] Default [address] [place] [address] Creatinine [Mass/Vol] 0.86 mg/dL Normal 0.60-1.35 [facility] Finance Director Comment on above: Order Comment: [facility] Testing performed at: [email or web address], [place] [facility], [address] [place] [address], [address] [place] [address], [address] [place] [address], Offshore Diver: Walker Stephens MD [facility] Collection Date/Time: [facility] Results Received Date/Time: [facility] Reported Date/Time: Performed By: #### C MP, LIPD #### [facility] Default [address] [place] [address] eGFRAA 119 mL/min/1.73m2 Normal > OR = 60 [facility] Comment on above: Order Comment: [facility] Testing performed at: [email or web address], [place] [facility], [facility], [address] [place] [address], [address] [place] [address], Offshore Diver: Walker Stephens MD [facility] Collection Date/Time: [facility] Results Received Date/Time: [facility] Reported Date/Time: Performed By: #### C MP, LIPD #### [facility] Default [address] [place] [address] eGFRNAA 98 mL/min/1.73m2 Normal > OR = 60 [facility] Comment on above: Order Comment: [facility] Testing performed at: [email or web address], [place] [facility], [facility], [address] [place] [address], [address] [place] [address], Offshore Diver: Walker Stephens MD [facility] Collection Date/Time: [facility] Results Received Date/Time: [facility] Reported Date/Time: Performed By: #### C MP, LIPD #### [facility] Default [address] [place] [address] Globulin (S) [Mass/Vol] 2.4 g/dL Normal 1.9-3.7 [facility] Comment on above: Order Comment: [facility] Testing performed at: [email or web address], [place] [facility], [facility], [address] [place] [address], [address] [place] [address], Offshore Diver: Walker Stephens MD [facility] Collection Date/Time: [facility] Results Received Date/Time: [facility] Reported Date/Time: Performed By: #### C MP, LIPD #### [facility] Default [address] [place] [address] Glucose [Mass/Vol] 231 mg/dL High 65-99 Amanda hooker [place] Finance Director Comment on above: Order Comment: [facility] Testing performed at: [email or web address], [place] [facility], [address] [place] [address], [address] [place] [address], [phone], Offshore Diver: Walker Stephens MD [facility] Collection Date/Time: [facility] Results Received Date/Time: [facility] Reported Date/Time: Result Comment: Fasting reference interval For someone without known diabetes, a glucose value >125 mg/dL indicates that they may have diabetes and this should be confirmed with a follow-up test. Performed By: #### C MP, LIPD #### [facility] Default [address] [place] [address] Potassium [Moles/Vol] 3.7 mmol/L Normal 3.5-5.3 [facility] Finance Director Comment on above: Order Comment: [facility] Testing performed at: [employer] [facility], [address] [place] [address], [address] [place] [address], [phone], Offshore Diver: Walker Stephens MD [facility] Collection Date/Time: [facility] Results Received Date/Time: [facility] Reported Date/Time: Performed By: #### C MP, LIPD #### [facility] Default [address] [place] [address] Protein [Mass/Vol] 6.8 g/dL Normal 6.1-8.1 Amanda hooker [place] Finance Director Comment on above: Order Comment: [facility] Testing performed at: [employer] [facility], [address] [place] [address], [address] [place] [address], [phone], Offshore Diver: Walker Stephens MD [facility] Collection Date/Time: [facility] Results Received Date/Time: [facility] Reported Date/Time: Performed By: #### C MP, LIPD #### [facility] Default [address] [place] [address] Sodium [Moles/Vol] 136 mmol/L Normal 135-146 [facility] Finance Director Comment on above: Order Comment: [facility] Testing performed at: [email or web address], [place] [facility], [address] [place] [address], [address] [place] [address], [address] [place] [address], Offshore Diver: Walker Stephens MD [facility] Collection Date/Time: [facility] Results Received Date/Time: [facility] Reported Date/Time: Performed By: #### C MP, LIPD #### [facility] Default [address] [place] [address] Urea nitrogen [Mass/Vol] 17 mg/dL Normal 7-25 [facility] Finance Director Comment on above: Order Comment: [facility] Testing performed at: [email or web address], [place] [facility], [address] [place] [address], [address] [place] [address], [address] [place] [address], Offshore Diver: Walker Stephens MD [facility] Collection Date/Time: [facility] Results Received Date/Time: [facility] Reported Date/Time: Performed By: #### C MP, LIPD #### [facility] Default [address] [place] [address] Hemoglobin A1Con 04-18-2021 HEMOGLOBIN A1c 9.3 % of total Hgb High <5.7 No rthern [place] Finance Director Comment on above: Order Comment: [facility] Testing performed at: [email or web address], [place] [facility], [address] [place] [address], [address] [place] [address], [address] [place] [address], Offshore Diver: Walker Stephens MD [facility] Collection Date/Time: [facility] Results Received Date/Time: [facility] Reported Date/Time: Result Comment: For someone without known diabetes, a [...] A1c for diagnosis of diabetes for children. Performed By: #### A 1C #### [facility] Default [address] [place] [address] Lipid Panelon 04-18-2021 Cholesterol [Mass/Vol] 187 mg/dL Normal <200 [facility] Finance Director Comment on above: Order Comment: [facility] Testing performed at: [email or web address], [place] [facility], [address] [facility], [address] [place] [address], [address] [place] [address], Offshore Diver: Walker Stephens MD [facility] Collection Date/Time: [facility] Results Received Date/Time: [facility] Reported Date/Time: Performed By: #### C MP, LIPD #### [facility] Default [address] [place] [address] Cholesterol in HDL [Mass/Vol] 36 mg/dL Low > OR = 40 [facility] Finance Director Comment on above: Order Comment: [facility] Testing performed at: [email or web address], [place] [facility], [address] [facility], [address] [place] [address], [address] [place] [address], Offshore Diver: Walker Stephens MD [facility] Collection Date/Time: [facility] Results Received Date/Time: [facility] Reported Date/Time: Performed By: #### C MP, LIPD #### [facility] Default [address] [place] [address] Cholesterol in LDL [Mass/Vol] 99 mg/dL Normal [facility] Finance Director Comment on above: Order Comment: [facility] Testing performed at: [email or web address], [place] [facility], [address] [place] , [address] [place] [address], [address] [place] [address], Offshore Diver: Walker Stephens MD [facility] Collection Date/Time: [facility] Results Received Date/Time: [facility] Reported Date/Time: Result Comment: LDL ATP III CLASSIFICATION LDL less than 100 mg/dl Optimal LDL 100-129 mg/dl Near or above optimal LDL 130-159 Borderline high LDL 160-189 High LDL greater than 189 mg/dl Very High Performed By: #### Bety GREEN, LIPD #### [facility] Default [address] [place] [address] Cholesterol in LDL [Mass/Vol] 114 mg/dL High [facility] Finance Director Comment on above: Order Comment: [facility] Testing performed at: [employer] [facility], [address] [place] [address], [address] [place] [address], [address] [place] [address], Offshore Diver: Walker Stephens MD [facility] Collection Date/Time: [facility] Results Received Date/Time: [facility] Reported Date/Time: Result Comment: Refe rence range: <100 Desirable range <100 mg/dL for primary prevention; <70 mg/dL for patients with CHD or diabetic patients with > or = 2 CHD risk factors. LDL-C is now calculated using the Naomi calculation, which is a validated novel method providing better accuracy than the Friedewald equation in the estimation of LDL-C. Edison MARIA et al. ESPINOZA. 2013;310(19): 4729-4263 (http://education.[employer]/faq/DBV968) Performed By: #### C PETER, LIPD #### [facility] Default [address] [place] [address] Cholesterol in VLDL [Mass/Vol] 52 mg/dL Normal [place] Finance Director Comment on above: Order Comment: [facility] Testing performed at: [employer] [facility], [address] [facility], [address] [place] [address], [phone], Offshore Diver: Walker Stephens MD [facility] Collection Date/Time: [facility] Results Received Date/Time: [facility] Reported Date/Time: Performed By: #### C PETER, LIPD #### [facility] Default [address] [place] [address] Cholesterol.total/C holesterol in HDL [Mass ratio] 5.2 {ratio} High <5.0 [facility] Finance Director Comment on above: Order Comment: [facility] Testing performed at: [email or web address], [place] [facility], [address] [facility], [address] [place], [address] [place] [address], Offshore Diver: Walker Stepehns MD [facility] Collection Date/Time: [facility] Results Received Date/Time: [facility] Reported Date/Time: Performed By: #### C MP, LIPD #### [facility] Default [address] [place] [address] NON HDL CHOLESTEROL 151 mg/dL (calc) High <130 [facility] Finance Director Comment on above: Order Comment: [facility] Testing performed at: [email or web address], [place] [facility], [address] [facility], [address] [place] [address], [address] [place] [address], Offshore Diver: Walker Stephens MD [facility] Collection Date/Time: [facility] Results Received Date/Time: [facility] Reported Date/Time: Result Comment: For patients with diabetes plus 1 major ASCVD risk factor, treating to a non-HDL-C goal of <100 mg/dL (LDL-C of <70 mg/dL) is considered a therapeutic option. Performed By: #### C PETER, LIPD #### [facility] Default [address] [place] [address] Triglyceride [Mass/Vol] 259 mg/dL High <150 [facility] Finance Director Comment on above: Order Comment: [facility] Testing performed at: [email or web address], [place] [facility], [address] [facility], [address] [place] [address], [phone], Offshore Diver: Walker Stephens MD [facility] Collection Date/Time: [facility] Results Received Date/Time: [facility] Reported Date/Time: Result Comment: If a non-fasting specimen was collected, consider repeat triglyceride testing on a fasting specimen if clinically indicated. Kevin green al. J. of Clin. Lipidol. 2015;9:129-169. Performed By: #### C PETER, LIPD #### [facility] Default [address] [place] [address] POINT OF CARE GLUCOSEon 10-0 Glucose [Mass/Vol] 128 mg/dL Critically high 74-106 [facility] Comment on above: Performed By: #### P OCGLUC #### [facility] [address] [address] [address] Judie Torres Vital Signs Date Time Vital Sign Value Performing Clinician Facility 10-26-2024 12:06-0400 Body height 190.5 cm Flakita Mukherjee [employer] Work Phone: [facility] 10-26-2024 12:06-0400 Body mass index (BMI) [Ratio] 32.62 kg/m2 Flakita Lakisha [employer] Work Phone: [facility] 10-26-2024 12:06-0400 Body weight 118.39 kg Flakita Lakisha [employer] Work Phone: [facility] 10-26-2024 12:06-0400 Diastolic blood pressure 90 mm[Hg] Flakita Lakisha [employer] Work Phone: [facility] 10-26-2024 12:06-0400 Systolic blood pressure 130 mm[Hg] Flakita Lakisha [employer] Work Phone: [facility] 09-07-2024 14:21-0400 Body height 190.5 cm Augustina Rutherford MD Work Phone: [facility] 09-07-2024 14:21-0400 Body mass index (BMI) [Ratio] 33.12 kg/m2 Augustina Rutherford MD Work Phone: [facility] 09-07-2024 14:21-0400 Body weight 120.2 kg Augustina Rutherford MD Work Phone: [facility] 09-07-2024 14:21-0400 Diastolic blood pressure 70 mm[Hg] Augustina Rutherford MD Work Phone: [facility] 09-07-2024 14:21-0400 Systolic blood pressure 126 mm[Hg] Augustina Rutherford MD Work Phone: [facility] 09-01-2024 11:04-0400 Body height 190.5 cm Alicia Busby MD Work Phone: [facility] 09-01-2024 11:04-0400 Body mass index (BMI) [Ratio] 32.5 kg/m2 Alicia Busby MD Work Phone: [facility] 09-01-2024 11:04-0400 Body weight 117.94 kg Alicia Busby MD Work Phone: [facility] 05-26-2024 08:43-0500 Body height 190.5 cm Augustina Rutherford MD Work Phone: [facility] 05-26-2024 08:43-0500 Body mass index (BMI) [Ratio] 33.12 kg/m2 Augustina Rutherford MD Work Phone: [facility] 05-26-2024 08:43-0500 Body weight 120.2 kg Augustina Rutherford MD Work Phone: [facility] 05-26-2024 08:43-0500 Diastolic blood pressure 80 mm[Hg] Augustina Rutherford MD Work Phone: [facility] 05-26-2024 08:43-0500 Systolic blood pressure 130 mm[Hg] Augustina Rutherford MD Work Phone: [facility] 12-15-2023 08:58-0400 Body height 190.5 cm Augustina Rutherford MD Work Phone: [facility] 12-15-2023 08:58-0400 Body mass index (BMI) [Ratio] 29.87 kg/m2 Augustina Rutherford MD Work Phone: [facility] 12-15-2023 08:58-0400 Body weight 108.41 kg Augustina Rutherford MD Work Phone: [facility] 12-15-2023 08:58-0400 Diastolic blood pressure 84 mm[Hg] Augustina Rutherford MD Work Phone: [facility] 12-15-2023 08:58-0400 Heart rate 72 /min Augustina Rutherford MD Work Phone: [facility] 12-15-2023 08:58-0400 SaO2% (BldA) [Mass fraction] 97 % Augustina Rutherford MD Work Phone: [facility] 12-15-2023 08:58-0400 Systolic blood pressure 136 mm[Hg] Augustina Rutherford MD Work Phone: [facility] 01-10-2022 10:35-0400 Body height 190.5 cm Chyna Thomas Other [facility] Other 01-10-2022 10:35-0400 Body mass index (BMI) [Ratio] 30.62 kg/m2 Chyna Thomas Other [facility] Other 01-10-2022 10:35-0400 Body temperature 97.1 [degF] Chyna Thomas Other [facility] Other 01-10-2022 10:35-0400 Body weight 111.13 kg Chyna Thomas Other [facility] Other 01-10-2022 10:35-0400 Respiratory rate 18 /min Chyna Thomas Other [facility] Other 01-10-2022 10:35-0400 SaO2% (BldA) [Mass fraction] 96 % Chyna Thomas Other [facility] Other Encounters Encounter Date Encounter Type Care Provider Facility Start: 10-26-2024 End: 10-26-2024 Delmao meghann Mukherjee [employer] Work Phone: [facility] Start: 10-26-2024 End: 10-26-2024 Edmundboo meghann Mukherjee [employer] Work Phone: [facility] Start: 10-26-2024 End: 10-26-2024 Office outpatient visit 25 minutes Flakita Mukherjee [employer] Work Phone: [facility] Comment on above: 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); Nontraumatic coccydynia Start: 10-26-2024 End: 10-26-2024 ambulatory FLAKITA MUKHERJEE Not Available Start: 10-06-2024 End: 10-06-2024 Refill Augustina Rutherford MD Work Phone: [facility] Comment on above: 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), managed as type 1 (HCC) Start: 09-07-2024 End: 09-07-2024 Office outpatient visit 25 minutes Augustina Rutherford MD Work Phone: [facility] Comment on above: Primary hypertension ; Hypertensive nephropathy ; Microalbuminuria; 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), managed as type 1 (HCC); 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); Type 1 diabetes mellitus with hyperglycemia (HCC); Mixed dyslipidemia ; Non morbid obesity due to excess calories Start: 09-07-2024 End: 09-07-2024 ambulatory AUGUSTINA RUTHERFORD Not Available Start: 09-07-2024 End: 09-07-2024 ambulatory ALICIA BUSBY Not Available Start: 09-01-2024 End: 09-01-2024 Office outpatient new 45 minutes Alicia Busby MD Work Phone: [facility] Comment on above: Coccyx pain (Primary Dx); Nontraumatic coccydynia Start: 09-01-2024 End: 09-01-2024 ambulatory ALICIA BUSBY Not Available Start: 06-09-2024 End: 06-09-2024 ambulatory AUGUSTINA RUTHERFORD Not Available Start: 05-26-2024 End: 05-26-2024 Bamboo flowsheet Augustina Rutherford MD Work Phone: [facility] Start: 05-26-2024 End: 05-26-2024 Bamboo flowsheet Augustina Rutherford MD Work Phone: [facility] Start: 05-26-2024 End: 05-26-2024 Office outpatient visit 40 minutes Augustina Rutherford MD Work Phone: [facility] Comment on above: 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), managed as type 1 (HCC) (CMS/HCC) (Primary Dx); Type 1 diabetes mellitus with hyperglycemia (HCC) (CMS/HCC); Type 1 diabetes mellitus with diabetic microalbuminuria (CMS/HCC); Essential hypertension (CMS/HCC); Hypertensive nephropathy (CMS/HCC); Mixed dyslipidemia (CMS/HCC); Overweight (BMI 25.0-29.9); Coccyx pain Start: 05-26-2024 End: 05-26-2024 ambulatory AUGUSTINA RUTHERFORD Not Available Start: 02-24-2024 End: 02-24-2024 Telephone encounter Augustina Rutherford MD Work Phone: [facility] Start: 01-04-2024 End: 01-04-2024 Bamboo flowsheet Nataliia Alt RN [facility] Start: 01-04-2024 End: 01-04-2024 Bamboo flowsheet Nataliia Alt RN [facility] Start: 01-04-2024 End: 01-04-2024 ambulatory NATALIIA ALT Not Available Start: 01-01-2024 End: 01-01-2024 Bamboo flowsheet Nataliia Alt RN [facility] Start: 01-01-2024 End: 01-01-2024 Bamboo flowsheet Nataliia Alt RN [facility] Start: 01-01-2024 End: 01-01-2024 ambulatory NATALIIA ALT Not Available Start: 12-15-2023 End: 12-15-2023 Bamboo flowsheet Augustina Rutherford MD Work Phone: [facility] Start: 12-15-2023 End: 12-15-2023 Bamboo flowsheet Augustina Rutherford MD Work Phone: [facility] Start: 12-15-2023 End: 12-15-2023 Office outpatient visit 40 minutes Augustina Rutherford MD Work Phone: [facility] Comment on above: Type 2 diabetes ras itus with diabetic microalbuminuria, with long-term current use of insulin ([facility]/HCC) (Primary Dx); Type 2 diabetes mellitus with hyperglycemia, without long-term current use of insulin ([facility]/HCC); Low serum C-peptide; Essential hypertension ([facility]); Hypertensive nephropathy ([facility]); Microalbuminuria; Mixed dyslipidemia ([facility]); Overweight (BMI 25.0-29.9) Start: 12-15-2023 End: 12-15-2023 ambulatory AUGUSTINA RUTHERFORD Not Available Start: 12-07-2023 End: 12-08-2023 External Result Encounter Augustina Rutherford MD Work Phone: [facility] External Department Unsolicited Start: 12-07-2023 End: 12-08-2023 External Result Encounter Augustina Rutherford MD Work Phone: [facility] External Department Unsolicited Start: 01-10-2022 End: 01-10-2022 ambulatory Chyna Thomas Other [facility] Other Start: 01-10-2022 Office outpatient ne w 20 minutes Chyna Thomas [facility] Start: 07-23-2021 End: 07-23-[address] AUGUSTINA RUTHERFORD Facility:[facility] Start: 12-29-2020 End: 12-29-[address] AUGUSTINA RUTHERFORD Facility:[facility] Start: 12-12-2015 End: 12-12-2015 Telephone encounter Lynn Gabrielle Work Phone: OB/Gynecology Comment on above: Orders Procedures Date Procedure Procedure Detail Performing Clinician Start: 12-07-2023 Assay of insulin total Augustina Rutherford MD Work Phone: Plan of Treatment Date Care Activity Detail Author Start: 06-14-2026 Glaucoma screening Diabetes: R etinopathy Screening [facility] Start: 01-27-2025 End: 01-27-2025 Patient encounter procedure 01/27/2025 11:15 AM EST Office Visit [facility] [address] [place] [address] Alicia Busby MD [address] [facility] [address] [place] [address] [id number] [facility] Start: 12-06-2024 Hemoglobin A1c measurement Diabetes: Hemoglobin A1C [facility] Start: 11-29-2024 End: 11-29-2024 Patient encounter procedure [facility] Start: 11-21-2024 Influenza vaccination [facility] Start: 11-17-2024 Urine screening for protein Diabetes: Urine Protein Screening [facility] Start: 11-07-2024 End: 09-07-2025 Hemoglobin A1c/Hemoglobin.total in Blood Hemoglobin A1c Lab Routine 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), 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) Type 1 diabetes mellitus with hyperglycemia (HCC) Expected: 11/07/2024 (Approximate), Expires: 09/07/2025 [facility] Work Phone: Comment on above: Expected: 11/07/2024 (Approximate), Expires: 09/07/2025 Start: 10-26-2024 End: 10-26-2024 Patient encounter procedure [facility] Comment on above: Arrived Start: 09-19-2024 Influenza vaccination Influenza Vacc ine (#1) [facility] Comment on above: Postponed from 11/21 (Patient Refused) Start: 09-07-2024 End: 09-07-2024 Patient encounter procedure 09/07/2024 2:30 PM EDT Office Visit [facility] [address] [facility] [address] [place] [address] Augustina Rutherford MD [address] [address] [place] [address] (Fax) [facility] Start: 09-01-2024 End: 09-01-2025 MR Lumbar spine WO contrast MR lumbar spine wo contrast Imaging Routine Coccyx pain Nontraumatic coccydynia Expected: 09/01/2024, Expires: 09/01/2025 [facility] Comment on above: Expected: 09/01/2024 , Expires: 09/01/2025 Start: 09-01-2024 End: 09-01-2025 XR Lumbar spine 4 Views [facility] Work Phone: Comment on above: Expected: 09/01/2024 , Expires: 09/01/2025 Start: 08-26-2024 End: 05-26-2025 Hemoglobin A1c/Hemoglobin.total in Blood Hemoglobin A1c Lab Routine 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), managed as type 1 (HCC) ([facility]) Expected: 08/26/2024 (Approximate), Expires: 05/26/2025 [facility] Work Phone: Comment on above: Expected: 08/26/2024 (Approximate), Expires: 05/26/2025 Start: 08-15-2024 Hemoglobin A1c measurement Diabetes: Hemoglobin A1C [facility] Start: 06-09-2024 End: 06-09-2024 Clinical Support 06/09/2024 11:00 AM EDT Clinical Support [facility] [address] [place] [address] [facility] Start: 05-26-2024 End: 05-26-2024 Patient encounter procedure 05/26/2024 9:00 AM EST Office Visit [facility] [address] [place] [address] Augustina Rutherford MD [address] [place] [address] Essential hypertension ([facility]); Hypertensive nephropathy ([facility]); Type 2 diabetes mellitus with hyperglycemia, without long-term current use of insulin ([facility]/HCC); Mixed dyslipidemia ([facility]/HCC); Overweight (BMI 25.0-29.9) [facility] 100 Comment on above: Essential hypertensi on ([facility]); Hypertensive nephropathy ([facility]/HCC); Type 2 diabetes mellitus with hyperglycemia, without long-term current use of insulin ([facility]/HCC); Mixed dyslipidemia ([facility]/HCC); Overweight (BMI 25.0-29.9) Start: 04-08-2024 Glaucoma screening Diabetes: R etinopathy Screening [facility] Start: 02-18-2024 Hemoglobin A1c measurement Diabetes: Hemoglobin A1C [facility] Start: 01-04-2024 End: 01-04-2024 Clinical Support 01/04/2024 10:30 AM EDT Clinical Support [facility] [address] [place] [address] Nataliia Raines RN [facility] Start: 12-15-2023 End: 12-15-2023 Patient encounter procedure [facility] FM 100 Comment on above: Essential hypertensi on (CMS/HCC); Hypertensive nephropathy ([facility]/HCC); Microalbuminuria; Mixed dyslipidemia ([facility]/HCC); Type 2 diabetes mellitus with hyperglycemia, without long-term current use of insulin ([facility]/HCC); Non morbid obesity due to excess calories Start: 11-22-2023 Influenza vaccination Influenza Vacc ine (#1) [facility] Start: 11-21-2020 Influenza vaccination INFLUENZA (Sea son Ended) [facility] Start: 02-19-2015 LIPID SCREEN LIPID SCREEN [facility] Start: 02-19-1999 Urine microalbumin profile DTAP,TDAP,TD (1 - Tdap) [facility] Start: 02-19-1998 HEPATITIS C SCREENING HEPATITIS C SC JF [facility] Start: 02-19-1998 HIV SCREENING HIV SCREENING [facility] Start: 1992 Adult depression screening assessment DEPRESSION SCREENING [facility] Payers Date Payer Category Payer Private Health Insurance [id number] 2023 Private Health Insurance [id number] 2021 Unknown BCBS BCBS [id number] 2021-Present [phone] [address] [place] [address] [id number] 2009 Private Health Insurance [employer] A ETNA CHOICE POS II [id number] 2009-Present POS [id number] 1980 Unknown [id number] 1980 Unknown [id number] 1980 Unknown [id number] 9 1980 Unknown [id number] 9 1980 Unknown [id number] 9 1980 Unknown [id number] 9 1980 Unknown [id number] 9 1980 Unknown [id number] 9 1980 Unknown [id number] 9 1980 Unknown [id number] 9 1980 Unknown [id number] 9 1980 Unknown [id number] 9 1959 Private Health Insurance [id number] 1959 Unknown [id number] Social History Date Type Detail [facility] Start: 1980 Sex Assigned At Not on file [facility] Start: 12-15-2023 End: 09-07-[address] [facility] Other Start: 06-11-2023 Tobacco smoking stat [facility] Never smoked tobacco [facility] Start: 06-11-2023 Tobacco use and exposure Smokeless tobacco non-user [facility] Start: 12-15-2023 End: 09-07-2024 Alcoholic beverage intake Current drinker of alcohol (finding) [facility] Start: 12-15-2023 End: 09-07-2024 Alcoholic beverage intake [facility] Start: 06-11-2023 Alcohol Comment Caffeine intak e: 1-2 cups per day soda/pop [facility] Medical Equipment Procedure Code Equipment Code Equipment Origin al Text Equipment Identifier Dates Injection subcut aneous QID as directed [id number] Start: 12-15-2023 Clinical Notes 01-02-2016 to 10-26-2024 Flakita Mukherjee NP - 10/26/2024 12:00 PM Quang Rutherford MD - 09/07/2024 2:30 PM Elidia Busby MD - 09/01/2024 11:00 AM Quang Rutherford MD - 05/26/2024 9:00 AM EST Note Date & Type Note Facility 10-26-2024 History of Presen t illness Narrative Images from the original note were not included. CHIEF COMPLAINT REASON FOR VISIT : Patient is here today for follow-up of the diagnosis below. I am following the plan of care established by Dr [...] KwikPen 30 Units, Subcutaneous, Nightly Continuous Glucose Production Control Supervisor (FreeStyle Bhavna 2 Bryant) device Use prior to each dose of insulin and as needed for symptoms Continuous Glucose Sensor (FreeStyle Bhavna 2 Sensor) misc Wear subcutaneous daily every 14 days EPINEPHrine (Epipen) 0.3 MG/0.3ML injection syringe 1 Syringe, As needed insulin lispro (HumaLOG KWIKPEN) 100 UNIT/ML injection Take sliding scale coverage subcutaneous tid with [...] SCREEN: Past Medical History: Diagnosis Date Asthma ([facility]) Body mass index (BMI) of 40.1 to 44.9 in adult ([facility]) Bone spur Insulin resistance Migraine headache Morbid obesity ([facility]) Past Surgical History: Procedure Laterality Date ADENOIDECTOMY HAND SURGERY Left [address] Barron LYMPH NODE DISSECTION 2000 from Lt. thigh MYRINGOTOMY W/ TUBES tubes [...] Recent and remote memory are intact. Speech is normal. Language is fluent with no aphasia. Attention [...] symmetric in all four extremities. Coordination Right: [id number]-[id number] normal. Rapid alternating movement normal. Ezdm-ay-zdru normal.Left: Kkfzdr-zy-tuga normal. Rapid alternating movement normal. Ceeu-lo-xnfx normal. Gait Casual gait is normal including [...] an anti-inflammatory medication can alleviate the symptoms. I will add [...] make further recommendations documented in this encounter [facility] 09-07-2024 History of Presen t illness Narrative Images from the original note were not included. Patient ID: Ralph Jaquez is a 44 y.o. male who presents for: Diabetes Mellitus Patient presents for follow up of diabetes. Current symptoms include: polyuria. Symptoms have stabilized. Patient denies increased appetite, paresthesia of the feet, polydipsia, and visual disturbances. Evaluation to date has included: hemoglobin A1C. Home sugars: patient does not check sugars. Hypertension Patient is here for follow-up of elevated blood pressure. He is exercising and is adherent to a low-salt diet. Blood pressure is well controlled at home. Cardiac symptoms: SOBOE. Patient denies chest pain, irregular heart beat, lower extremity edema, and palpitations. Cardiovascular risk factors: diabetes mellitus, dyslipidemia, hypertension, male gender, and obesity (BMI >= 30 kg/m2). Use of agents associated with hypertension: none. History of target organ damage: none. Hyperlipidemia Pt who presents for follow-up of dyslipidemia. A repeat fasting lipid profile was not done. The patient does not use medications that may worsen dyslipidemias (corticosteroids, progestins, anabolic steroids, diuretics, beta-blockers, amiodarone, cyclosporine, olanzapine). Exercise: intermittently. Objective The patient is pleasant and in no acute distress The patient has good eye contact and clear But somewhat monotone speech. He has not appropriate but rather constricted affect today. 06/11/2023 3:50 PM 07/09/2023 1:52 PM 08/03/2023 10:52 AM 12/15/2023 8:58 AM 05/26/2024 8:43 AM 09/01/2024 11:04 AM 09/07/2024 2:21 PM Vitals BMI 32.32 kg/m2 30.5 kg/m2 30.5 kg/m2 29.87 kg/m2 33.12 kg/m2 32.5 kg/m2 33.12 kg/m2 BSA (m2) 2.39 m2 2.42 m2 2.42 m2 2.39 m2 2.52 m2 2.5 m2 2.52 m2 Systolic 144 136 130 126 Diastolic 84 84 80 70 Heart Rate 72 SpO2 97 % Height (in) 6' 1 6' 3 6' 3 6' 3 6' 3 6' 3 6' 3 Weight (lb) 245 244 244 239 265 260 265 Visit Report Report Report Report Report Report Report Component Ref Range & Units 2 d ago 3 mo ago 9 mo ago 2 yr ago 3 yr ago Hemoglobin A1C <5.7 % 10.9 High 8.4 High R, CM 12.2 High R, CM 13.5 High R, CM 9 Allergies Allergen Reactions Bee Pollen Other Reaction(s): local swelling Cefaclor Rash Iodine Rash Wound Dressing Adhesive Rash Current Outpatient Medications on File Prior to Visit Medication Sig Dispense Refill celecoxib (CeleBREX) 200 MG capsule Take 1 capsule (200 mg) by mouth in the morning and 1 capsule (200 mg) before bedtime. 60 capsule 11 Continuous Glucose Production Control Supervisor (ApnaPaisaStyle Bhavna 2 Bryant) device Use prior to each dose of insulin and as needed for symptoms 1 each 0 EPINEPHrine (Epipen) 0.3 MG/0.3ML injection syringe Inject 1 Syringe as directed if needed (allergic reaction) insulin lispro (HumaLOG KWIKPEN) 100 UNIT/ML injection Take sliding scale coverage subcutaneous tid with meals; Less than 70 eat, 70-150 0(zero) units, 150-200 2 units, 200-250 4 units, >250 6 units. Maximum monthly dose 540 units 6 mL 0 pen needle 32G x 6 mm misc Injection subcutaneous QID as directed 200 each 3 losartan (Cozaar) 100 MG tablet Take 100 mg by mouth Daily (Patient not taking: Reported on 09/07/2024) pioglitazone (Actos) 30 MG tablet Take 1 tablet (30 mg) by mouth Daily (Patient not taking: Reported on 09/07/2024) 30 tablet 0 No current facility-administered medications on file prior to visit. 1. Primary hypertension Chronic problem, stable, technically to goal but not optimally managed. I can not figure out why he is not taking the losartan. He states he does not have any. I discussed with him and do our discussions I do not have time to research his chart during his office visit. I will research this chart after his office visit try to figure out what is going on and get back to him concerning the losartan. - nebivolol (Bystolic) 10 MG tablet; Take 1 tablet (10 mg) by mouth Daily Dispense: 90 tablet; Refill: 0 2. Hypertensive nephropathy Chronic problem, monitor longitudinally. 3. Microalbuminuria Chronic problem, defining an aspect the nephropathy, with significant risk, uncertain progression requiring longitudinal monitoring, and moderate decision making. Microalbuminuria describes a moderate increase in the level of urine albumin. Normally, the kidneys filter albumin, so if the kidney leaks small amounts of albumin into the urine then it is a indicator of chronic kidney disease. Microalbuminuria is an independent indicator of increased cardiovascular risk among individuals and therefore can be used for risk stratification for cardiovascular disease. 4. 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 I think he still psychologically adjusting to this and there are some domestic issues in his life. His compliance appears to be off. I briefly discussed the importance of compliance even in view of everything that is going on. We need him to be healthy in the long-term. He has agreed to check his insulins and do the sliding scale. He has agreed to get me the blood sugar readings and how much insulin he is actually taking in approximately 7-10 days. He will certainly need adjustments as he is absolutely not to goal. I discussed how being this out of control with his diabetes is causing permanent damage to his body. - insulin glargine (Basaglar KwikPen) 100 UNIT/ML pen; Inject 20 Units under the skin at bedtime Dispense: 18 mL; Refill: 0 - Continuous Glucose Sensor (FreeStyle Bhavna 2 Sensor) misc; Wear subcutaneous daily every 14 days Dispense: 6 each; Refill: 3 - Hemoglobin A1c; Future - Hemoglobin A1c 5. 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 Type 1 diabetes mellitus with hyperglycemia (HCC) As above - Hemoglobin A1c; Future - Hemoglobin A1c 7. Mixed dyslipidemia In prescribing a renewal to their current medication, consideration of the following encompasses moderate decision making; the current prescriptions and supplements, the current allergies and medication intolerances, current medical conditions, and potential drug interactions. The patient was given a chance to ask questions today and all questions were answered. - atorvastatin (Lipitor) 20 MG tablet; Take 1 tablet (20 mg) by mouth Daily Dispense: 90 tablet; Refill: 0 8. Non morbid obesity due to excess calories Continue to try and get some exercise. This will also help with his mental health. Chronic problem The patient meets the criteria for polypharmacy; 5 or more prescriptions or multi-morbidity defined as 5 or more diagnoses. Polypharmacy can significantly increase the risk of adverse drug events and negatively impact adherence. Consideration of factors such as clinician agreement, patient perspective, and de-prescribing, as appropriate can improve patient outcomes while simplifying care. This requires longitudinal monitoring as there is at least a moderate risk of morbidity and requires at least a moderate degree of evaluation and management. documented in this encounter [facility] 09-01-2024 History of Presen t illness Narrative Images from the original note were not [...] of activity or posture. Prolonged sitting exacerbates the discomfort, while standing alleviates it. Lying flat on his back also induces pain, but sleeping on his side provides some relief. The pain has [...] pain. SOCIAL HISTORY: Occupations: Works for the [employer] in the [employer]; previously worked for the [employer] for 14+ years. MEDICATIONS CURRENT MEDS: Insulin [...] equal, round, and reactive to light and accommodation, both directly and consensually. Visual talbot were full [...] in all four extremities, including at least editor dictionary, finger abductors, biceps, triceps, deltoid, toe flexors [...] and spasticity are not evident. Arm swing is normal. Toe, heel, and tandem walking are performed [...] may also contribute to the condition. A flexion-extension x-ray will be ordered to assess any movement in the tailbone area. Additionally, an MRI of the lumbar region will be conducted to evaluate for any changes or previously undetected abnormalities. He will be prescribed Celebrex 200 mg twice daily to determine if an anti-inflammatory medication can alleviate the symptoms. The prescription will be sent to [facility] in [place]. A note will be sent to Dr. [...] results of the diagnostic tests and discuss the effectiveness of the anti-inflammatory medication. This clinical note was created utilizing [employer] documentation system. All information has been thoroughly reviewed, corrected as necessary, and authenticated by the provider to ensure accuracy and completeness. On occasion, [employer] documentation system erroneously drops words or replaces a spoken word with a similar sounding word. Please notify with any questions or concerns regarding this clinical note. documented in this encounter [facility] 05-26-2024 History of Presen t illness Narrative Images from the original note were not included. Patient ID: Ralph Jaquez is a 44 y.o. male who presents for: Hypertension Patient is here for follow-up of elevated blood pressure. He is not exercising and is adherent to a low-salt diet. Blood pressure is not checking BP at home. Cardiac symptoms: migraines . Patient denies chest pain, dyspnea, irregular heart beat, lower extremity edema, and palpitations. Cardiovascular risk factors: diabetes mellitus, dyslipidemia, hypertension, male gender, microalbuminuria, and sedentary lifestyle. Use of agents associated with hypertension: none. History of target organ damage: none. Hyperlipidemia Pt who presents for follow-up of dyslipidemia. A repeat fasting lipid profile was not done. The patient does not use medications that may worsen dyslipidemias (corticosteroids, progestins, anabolic steroids, diuretics, beta-blockers, amiodarone, cyclosporine, olanzapine). Exercise: rarely. Diabetes Mellitus Patient presents for follow up of diabetes. Current symptoms include: none. Symptoms have stabilized. Patient denies increased appetite, paresthesia of the feet, polydipsia, polyuria, and visual disturbances. Evaluation to date has included: hemoglobin A1C. Home sugars: BGs are running consistent with Hgb A1C. Review of Systems Constitutional: Negative for activity change and fatigue. Respiratory: Negative for cough, shortness of breath and wheezing. Cardiovascular: Negative for chest pain, palpitations and leg swelling. Neurological: Negative for light-headedness and headaches. Objective The patient is pleasant and in no acute distress The patient has good eye contact and clear speech Visit Vitals BP 130/80 Ht 6' 3 Wt 265 lb BMI 33.12 kg/m Smoking Status Never BSA 2.52 m Units 8 d ago 6 mo ago 1 yr ago 3 yr ago Hemoglobin A1C <5.7 % of total Hgb 8.4 High 12.2 High CM 13.5 High R, CM Allergies Allergen Reactions Bee Pollen Other Reaction(s): local swelling Cefaclor Rash Iodine Rash Wound Dressing Adhesive Rash Current Outpatient Medications on File Prior to Visit Medication Sig Dispense Refill Continuous Glucose Production Control Supervisor (FreeStyle Bhavna 2 Bryant) device Use prior to each dose of insulin and as needed for symptoms 1 each 0 Continuous Glucose Sensor (FreeStyle Bhavna 2 Sensor) misc Wear subcutaneous daily every 14 days 6 each 3 EPINEPHrine (Epipen) 0.3 MG/0.3ML injection syringe Inject 1 Syringe as directed if needed (allergic reaction) insulin glargine (Basaglar KwikPen) 100 UNIT/ML pen Inject 20 Units under the skin at bedtime 18 mL 0 insulin lispro (HumaLOG KWIKPEN) 100 UNIT/ML injection Take sliding scale coverage subcutaneous tid with meals; Less than 70 eat, 70-150 0(zero) units, 150-200 2 units, 200-250 4 units, >250 6 units. Maximum monthly dose 540 units 6 mL 1 pen needle 32G x 6 mm misc Injection subcutaneous QID as directed 200 each 3 amitriptyline (Elavil) 25 MG tablet Take 25 mg by mouth at bedtime (Patient not taking: Reported on 05/26/2024) atorvastatin (Lipitor) 40 MG tablet Take 40 mg by mouth Daily (Patient not taking: Reported on 05/26/2024) losartan (Cozaar) 100 MG tablet Take 100 mg by mouth Daily (Patient not taking: Reported on 05/26/2024) pioglitazone (Actos) 30 MG tablet Take 30 mg by mouth Daily (Patient not taking: Reported on 05/26/2024) SUMAtriptan (Imitrex) 50 MG tablet Take 50 mg by mouth See administration instructions 1 TAB NEEDED FOR BREAKTHROUGH MIGRAINES MAY REPEAT 1X AFTER 2HRS IF NO RELIEF NO MORE THAN 2/24HR (Patient not taking: Reported on 05/26/2024) No current facility-administered medications on file prior to visit. 1. 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 It is formally called latent autoimmune diabetes in adults. There is some debate about this but his pancreas cells are no longer able to make the insulin that he needs. We also talked that some people strictly treat with insulin, we will some people believe than adding medications to help decrease insulin resistance. He had previously tried metformin in had too many GI side effects. He had previously tried pioglitazone and was tolerant of it, but the medication had stopped working. Personally I believe in an attempt to utilize the insulin resistance medications, as insulin by itself is inflammatory in his linked to other disorders. We did talk about the increased possibility of hypoglycemia. He already has some sugar tablets for rescue. We will has significant improvement in his hemoglobin A1c he is still not to goal. We discussed and we will recheck a hemoglobin A1c in 3 months and if the pioglitazone isn't enough to get him to goal, then we will need to start adjusting the insulin. We had a discussion on the importance of him ultimately keeping up with eye evaluations currently for retinopathy, but after 54 glaucoma and macular degeneration also. - pioglitazone (Actos) 30 MG tablet; Take 1 tablet (30 mg) by mouth Daily Dispense: 30 tablet; Refill: 0 - insulin glargine (Basaglar KwikPen) 100 UNIT/ML pen; Inject 20 Units under the skin at bedtime Dispense: 18 mL; Refill: 0 - insulin lispro (HumaLOG KWIKPEN) 100 UNIT/ML injection; Take sliding scale coverage subcutaneous tid with meals; Less than 70 eat, 70-150 0(zero) units, 150-200 2 units, 200-250 4 units, >250 6 units. Maximum monthly dose 540 units Dispense: 6 mL; Refill: 1 - Continuous Glucose Sensor (FreeStyle Bhavna 2 Sensor) misc; Wear subcutaneous daily every 14 days Dispense: 6 each; Refill: 3 - Hemoglobin A1c; Future - Hemoglobin A1c 2. Type 1 diabetes mellitus with hyperglycemia (HCC) (CMS/HCC) As above 3. Type 1 diabetes mellitus with diabetic microalbuminuria (CMS/HCC) Chronic problem, defining an aspect the nephropathy, with significant risk, uncertain progression requiring longitudinal monitoring, and moderate decision making. Microalbuminuria describes a moderate increase in the level of urine albumin. Normally, the kidneys filter albumin, so if the kidney leaks small amounts of albumin into the urine then it is a indicator of chronic kidney disease. Microalbuminuria is an independent indicator of increased cardiovascular risk among individuals and therefore can be used for risk stratification for cardiovascular disease. 4. Essential hypertension (CMS/HCC) Chronic comorbid condition. We talked about the importance of keeping his systolic blood pressure near 120. He has not been checking them at home and we only have 1 data point. I discussed that he will want to be on low-dose losartan for its kidney an endovascular protection. We will give him 1 week to get us at least 6 blood pressure readings and that way we can better make a decision as to what strength he might need. 5. Hypertensive nephropathy (CMS/HCC) As above 6. Mixed dyslipidemia (CMS/HCC) The patient has previously tolerated atorvastatin. We discussed how it is important and recommended for diabetics to be on statin medications due to the inflammatory nature of the diabetes. Also uncontrolled blood sugars tend to worsened cholesterol levels. We are going to start him on a little bit lower dose than he was on previously. Once we have his hemoglobin A1c to goal we will go ahead and check a lipid profile and see where he is at. - atorvastatin (Lipitor) 20 MG tablet; Take 1 tablet (20 mg) by mouth Daily Dispense: 90 tablet; Refill: 0 7. Overweight (BMI 25.0-29.9) Continue the lifestyle changes 8. Coccyx pain This is somewhat of a chronic problem that is worsening in nature. I was originally concerned that maybe there was some sort of pilonidal cyst or fistula and he went to surgery who told him that was not the answer. We discussed some options today specifically referral to Neurology or referral to Orthopedics. My suggestion was to start with Neurology and proceed as necessary. - Ambulatory referral to Neurology; Future - Ambulatory referral to Neurology documented in this encounter [facility] 02-24-2024 Telephone encount er Note Reviewed and a 90 day supply was sent. [facility] 02-24-2024 Miscellaneous Notes Formattin g of this note might be different from the original. Reviewed and a 90 day supply was sent. Laith called, he is on Basaglar insulin pen that he takes every morning. He states that he only has 1 pen left and does not show a refill. He states it goes rather quickly because he uses 20 clicks every morning. Patient is requesting a refill to [facility] in [place]. documented in this encounter [facility] 02-24-2024 Telephone encount er Note Laith called, he is on Basaglar insulin pen that he takes every morning. He states that he only has 1 pen left and does not show a refill. He states it goes rather quickly because he uses 20 clicks every morning. Patient is requesting [facility] ref[facility] to [facility] [place]. [facility] 12-15-2023 History of Presen t illness Narrative Images from the original note were not included. Patient ID: Ralph Jaquez is a 43 y.o. male who presents for: Hypertension Patient is here for follow-up of elevated blood pressure. He is exercising and is adherent to a low-salt diet. Blood pressure is notchecking BP at home. Cardiac symptoms: migraines . Patient denies chest pain, dyspnea, irregular heart beat, lower extremity edema, and palpitations. Cardiovascular risk factors: diabetes mellitus, dyslipidemia, hypertension, male gender, microalbuminuria, and obesity (BMI >= 30 kg/m2). Use of agents associated with hypertension: none. History of target organ damage: none. Hyperlipidemia Pt who presents for follow-up of dyslipidemia. A repeat fasting lipid profile was done. The patient does not use medications that may worsen dyslipidemias (corticosteroids, progestins, anabolic steroids, diuretics, beta-blockers, amiodarone, cyclosporine, olanzapine). Exercise: daily. Diabetes Mellitus Patient presents for follow up of diabetes. Current symptoms include: polyuria. Symptoms have stabilized. Patient denies increased appetite, nausea, paresthesia of the feet, polydipsia, and visual disturbances. Evaluation to date has included: fasting blood sugar, fasting lipid panel, hemoglobin A1C, and insulin . Home sugars: patient does not check sugars. Review of Systems Constitutional: Negative for chills and fever. Respiratory: Negative for cough, shortness of breath and wheezing. Cardiovascular: Negative for chest pain and palpitations. Gastrointestinal: Negative for abdominal pain. Genitourinary: Negative for frequency and urgency. Neurological: Positive for headaches. Calculated average BS based on A1C; 309 C peptide low normal. Insulin only 2.9 Component Ref Range & Units 1 mo ago 1 yr ago 2 yr ago Hemoglobin A1C <5.7 % of total Hgb 12.2 High 13.5 High R, CM 9.3 High R, CM Objective The patient is pleasant and in no acute distress The patient does not appear to have a gross neurologic deficit. The patient has good eye contact and clear speech Visit Vitals BP 136/84 Pulse 72 Ht 6' 3 Wt 239 lb SpO2 97% BMI 29.87 kg/m Smoking Status Never BSA 2.39 m Allergies Allergen Reactions Bee Pollen Other Reaction(s): local swelling Cefaclor Rash Iodine Rash Wound Dressing Adhesive Rash Current Outpatient Medications on File Prior to Visit Medication Sig Dispense Refill amitriptyline (Elavil) 25 MG tablet Take 25 mg by mouth at bedtime atorvastatin (Lipitor) 40 MG tablet Take 40 mg by mouth Daily EPINEPHrine (Epipen) 0.3 MG/0.3ML injection syringe Inject 1 Syringe as directed if needed (allergic reaction) losartan (Cozaar) 100 MG tablet Take 100 mg by mouth Daily pioglitazone (Actos) 30 MG tablet Take 30 mg by mouth Daily SUMAtriptan (Imitrex) 50 MG tablet Take 50 mg by mouth See administration instructions 1 TAB NEEDED FOR BREAKTHROUGH MIGRAINES MAY REPEAT 1X AFTER 2HRS IF NO RELIEF NO MORE THAN 2/24HR [DISCONTINUED] Farxiga 5 MG Take 5 mg by mouth Daily No current facility-administered medications on file prior to visit. 1. Type 2 diabetes mellitus with diabetic microalbuminuria, with long-term current use of insulin ([facility]) We had a long discussion today concerning his uncontrolled diabetes in the face of low insulin and C-peptide. He is going to require insulin. We discussed multiple ways to go about this. We have mutually agreed on continuous glucose monitoring. We will start with simply a bedtime dose of long-acting insulin. This way we can see how much we think he is going to need. Once he is all set up I would like him to get me some fasting in the morning and before supper blood sugars. We discussed that once we have this under better understanding we are going to start adding coverage in an immediate release. We discussed some options and I think he would best be served by working with the network liaison in the beginning. In prescribing a new medication consideration of the following encompasses moderate decision making: the current prescriptions and supplements, the current allergies and medication intolerances, the current medical conditions, and potential drug interactions. Risks, benefits, and reason for starting their medication were discussed. The patient was given a chance to ask questions today and all questions were answered. The patient is to contact us if any other questions arise or if any problems occur with the adjustment in their medication. - Continuous Glucose Sensor (FreeStyle Bhavna 2 Sensor) misc; Wear subcutaneous daily every 14 days Dispense: 6 each; Refill: 3 - Continuous Glucose Production Control Supervisor (FreeStyle Bhavna 2 Bryant) device; Use prior to each dose of insulin and as needed for symptoms Dispense: 1 each; Refill: 0 - insulin glargine (Basaglar KwikPen) 100 UNIT/ML pen; Inject 20 Units under the skin at bedtime Dispense: 6 mL; Refill: 0 - pen needle 32G x 6 mm misc; Injection subcutaneous QID as directed Dispense: 200 each; Refill: 3 - Ambulatory referral to Diabetic Education; Future 2. Type 2 diabetes mellitus with hyperglycemia, without long-term current use of insulin ([facility]) - Ambulatory referral to Diabetic Education; Future 3. Low serum C-peptide - Ambulatory referral to Diabetic Education; Future 4. Essential hypertension ([facility]) Chronic problem, stable, to goal - Ambulatory referral to Diabetic Education; Future 5. Hypertensive nephropathy ([facility]) - Ambulatory referral to Diabetic Education; Future 6. Microalbuminuria - Ambulatory referral to Diabetic Education; Future 7. Mixed dyslipidemia ([facility]) 8. Overweight (BMI 25.0-29.9) documented in this encounter [facility] 01-10-2022 Evaluation note Encounter Date Diagnosis Assessment Notes Dec, Viral upper respiratory infection (ICD-10 - J06.9) Viral upper respiratory infection: adult home care material was printed Drink plenty fluids, get plenty of rest. Take Tylenol or Motrin for aches pains or fevers. Consider taking Sudafed or Mucinex for nasal congestion. Follow-up with your family physician if no improvement in 2 to 3 days. [facility] Other 05-03-2022 NotePROCEDURE: XR FINGER MIN 2 VIEWS HISTORY: Pain in left thumb since injury 2 weeks ago COMPARISON: None. FINDINGS: BONES:No fracture, dislocation, bone lesion. Small sesamoid bones along the palmar margin of the metacarpophalangeal joints and interphalangeal joint. SOFT TISSUES:No visible soft tissue swelling. EFFUSION:None visible. OTHER: Negative. IMPRESSION: 1. No acute bone abnormality or significant degenerative changes of the left thumb. Electronically authenticated by: CAPRI RICHMOND Date: 2021-07-23 12:20[id number] Miscellaneous Notes* Telephone Encounter - Nora Luna RN - 01/02/2016 12:53 PM EDT Called and spoke to Carin. Confirmed the plan of Letrozole and baby aspririn and prometrium (withpositive test). She actually just finished her Letrozole for this cycle. Patient verbalizes understanding of plan. * Telephone Encounter - Lynn Anthony - 01/01/2016 2:30 PM EDT This is the plan. With next period she can start letrozole, baby aspirin and (when she gets her positive test) prometrium. SABINO Araya * Telephone Encounter - Nora Luna RN - 12/31/2015 1:56 PM EDT Forwarding to Dr. Anthony, Please advise if there is anything else we should discuss with her. It looks like we have already spoke to her about Letrozole, Prometrium, and baby aspirin. * Telephone Encounter - Marshall Lindsey MA - 12/31/2015 1:16 PM EDT Pt's spouse phoned back and recvd. msg. and an understanding was verbalized. Pt spouse would like to know if there is a next step that should be taken? Pt spouse would like to be called as it is hardfor pt to be contacted while at work. Call Alena at [phone]. * Telephone Encounter - Nora Luna RN - 12/31/2015 12:14 PM EDT Left message for patient to call back for his test results. * Telephone Encounter - Lynn Anthony - 12/31/2015 12:07 PM EDT Can you please call patient and let him know his testing was normal? Lynn Araya * Telephone Encounter - Nora Luna RN - 12/31/2015 11:43 AM EDT Results of chromosome analysis received from [facility]: 46,XY normal male karyotype Will have scanned into epic. Forwarding to Dr. Anthony * Telephone Encounter - Nora Luna RN - 12/12/2015 12:54 PM EDT Spoke to patient and reviewed chart. Patient is supposed to have chromosome analysis done. Orders faxed to [employer] at [phone]. * Telephone Encounter - Sintia Carpenter - 12/12/2015 12:35 PM EDT Patients spouse calling in regards to orders placed. Spouse is inquiring why a semen analysis was ordered. Spouse had originally thought that it was going to be for a chromosomal blood test that she had as well. Spouse is inquiring if the semen analysis is needed. Please advise. 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, or unspecified Microalbuminuria Proteinuria Mixed dyslipidemia (CMS/HCC) Overweight (BMI 25.0-29.9) Overweight documented in this encounter [facility]* Diagnosis Type 2 diabetes mellitus with diabetic microalbuminuria, with long-term current use of insulin ([facility]/HCC) documented in this encounter [facility]* Diagnosis 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), managed as type 1 (HCC) (CMS/HCC)- Primary Type 1 diabetes mellitus with hyperglycemia (HCC) (CMS/HCC) Type 1 diabetes mellitus with diabetic microalbuminuria (CMS/HCC) Essential hypertension (CMS/HCC) Unspecified essential hypertension Hypertensive nephropathy (CMS/HCC) 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 IV, or unspecified Mixed dyslipidemia (CMS/HCC) Overweight (BMI 25.0-29.9) Overweight Coccyx pain Other disorder of coccyx [facility] Diagnosis Coccyx pain- Primary Other disorder of coccyx Nontraumatic coccydynia [facility]* Diagnosis Primary hypertension Unspecified essential hypertension Hypertensive nephropathy 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 IV, or unspecified Microalbuminuria Proteinuria 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), 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) Type 1 diabetes mellitus with hyperglycemia (HCC) Mixed dyslipidemia Non morbid obesity due to excess calories [facility]* Diagnosis 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), managed as type 1 (HCC) [facility]* Diagnosis 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 [facility] Narrative - Reported* Type Description Date Medical History type II diabetes Surgical History lymph node resection Surgical History adenoidectomy Hospitalization History as a child [facility] Other Reason for referral (narrative)* Consultation (Routine) - Authorized Specialty Diagnoses / Procedures Referred By Srinivasan page Referred To Contact Diabetes Education / Behavioral Health Diagnoses Type 2 diabetes mellitus with diabetic microalbuminuria, with long-term current use of insulin (CMS/HCC) Essential hypertension (CMS/HCC) Hypertensive nephropathy (CMS/[facility]) Microalbuminuria Type 2 diabetes mellitus with hyperglycemia, without long-term current use of insulin (CMS/HCC) Low serum C-peptide Procedures [place] OFFICE/OUTPATIENT NEW HIGH MDM 60 MINUTES Augustina Rutherford MD [address] [place] [address] Fax: [facility] [address] [facility] [address] [place] [address] Referral ID Status Reason Start Date Expiration Date Visits Requested Visits Authorized [id number] Authorized Specialty Services Required 12/22/2023 06/19/2024 1 1 [facility] Narrative* Consultation (Routine) - Closed Specialty Diagnoses / Procedures Referred By Contac t Referred To Contact Neurology Diagnoses Coccyx pain Procedures [place] OFFICE/OUTPATIENT NEW HIGH MDM 60 MINUTES Augustina Rutherford MD [address] [place] [address] Phone: tel: fax: Alicia Busby MD [address] [place] [address] Phone: tel: fax: Referral ID Status Reason Start Date Expiration Date V isits Requested Visits Authorized [id number] Closed Specialty Services Required 05/26/2024 11/22/2024 1 1 [facility] Summary Purpose Family History No Family History Records FoundNo Family History Records FoundNo Family History Records FoundNo Family History Records Found Advance Directives No Advanced Directives Records FoundNo Advanced Directives Records FoundNo Advanced Directives Records FoundNo Advanced Directives Records Found Additional Source Comments Source Comments (unrecognize d section and content) In the event this informatio n is protected by the Federal Confidentiality of Alcohol and Drug Abuse Patient Records regulations: The Federal rules restrict any use of the information to criminally investigate or prosecute any alcohol or drug abuse patient.[facility] Reason for Visit (unrecogniz ed section and content) Reason Onset Date Comments Orders 12/12/2015 Reason Comments Hypertension Hyperlipidemia Diabetes Reason Comments Hypertension Hyperlipidemia Diabetes Reason Comments Med Refill (unrecognized sect ion and content) No Status Records FoundNo Status Records FoundNo Status Records FoundNo Status Records Found INFORMATION SOURCE (unrecogn ized section and content) DATE CREATED AUTHOR 07/27/2021 [facility] dical Specialist DATE CREATED AUTHOR AUTHOR'S ORGANIZ ATION 07/31/2021 [facility] DATE CREATED AUTHOR AUTHOR'S ORGANIZ ATION 09/08/2024 [facility] DATE CREATED AUTHOR AUTHOR'S ORGANIZ ATION 10/29/2024 [facility] dical Specialists [facility] Care Teams (unrecognized sec tion and content) Dba Manager Relationship Specialty Start Date End Date Augustina Rutherford MD [address] [place] [address] (Fax) PCP - [place] [employer] 06/21/21 Augustina Rutherford MD [address] [place] [address] PCP - General Family Medicine 09/18/22 Dba Manager Relationship Specialty Start Date End Date Augustina Rutherford MD [address] [place] [address] (Fax) PCP - [employer] [place] [employer] 06/21/21 Augustina Rutherford MD [address] [place] [address] PCP - General Family Medicine 09/18/22 Dba Manager Relationship Specialty Start Date End Date Augustina Rutherford MD [address] [place] [address] (Fax) PCP - [place] 06/21/21 Augustina Rutherford MD [address] [place] [address] PCP - General Family Medicine 09/18/22 Dba Manager Relationship Specialty Start Date End Date Augustina Rutherford MD [address] [place] [address] (Fax) PCP - [employer] 06/21/21 Augustina Rutherford MD [address] [address] (Fax) PCP - General Family Medicine 09/18/22 Dba Manager Relationship Specialty Start Date End Date Augustina Rutherford MD [address] [place] [phone] (Fax) PCP - [employer] 06/21/21 Augustina Rutherford MD [address] [place] [address] PCP - General Family Medicine 09/18/22 Dba Manager Relationship Specialty Start Date End Date Augustina Rutherford MD (Fax) PCP - General Family Medicine 09/18/22 Dba Manager Relationship Specialty Start Date End Date Augustina Rutherford MD (Fax) PCP - General Family Medicine 09/18/22 Dba Manager Relationship Specialty Start Date End Date Augustina Rutherford MD (Fax) PCP - General Family Medicine 09/18/22 Dba Manager Relationship Specialty Start Date End Date Augustina Rutherford MD (Fax) PCP - General Family Medicine 09/18/22 Dba Manager Relationship Specialty Start Date End Date Augustina Rutherford MD (Fax) PCP - General Family Medicine 09/18/22 Dba Manager Relationship Specialty Start Date End Date Augustina Rutherford MD PCP - General Family Medicine 09/18/22 Dba Manager Relationship Specialty Start Date End Date Augustina Rutherford MD PCP - General Family Medicine 09/18/22 FOR RECORDS PERTAINING TO PATIENTS WHO ARE OR HAVE BEEN ENROLLED IN A CHEMICAL DEPENDENCY/SUBSTANCEABUSE PROGRAM, SOME INFORMATION MAY BE OMITTED. This clinical summary was aggregated from multiple sources. Caution should be exercised in using it in the provision of clinical care. This summary normalizes information from multiple sources, and as a consequence, information in this document may materially change the coding, format and clinical context of patient data. In addition, data may be omitted in some cases. CLINICAL DECISIONS SHOULD BE BASED ON THE PRIMARY CLINICAL RECORDS. [employer] [facility]. provides no warranty or guarantee of the accuracy or completeness of information in this document.
[2024-11-07 11:08] VITALS: BP 149/106; PULSE 85; TEMP 36.3; O2SAT 99
[2024-11-07 13:45] VITALS: BP 156/96; BP 158/101; PULSE 66; PULSE 90; O2SAT 96
[2024-11-07] MEDS: BUPIVACAINE HCL 0.25% PF 25 MG/10 ML VIAL 2 ML INJ (13:46)
[2024-11-07] MEDS: 0.9 % SODIUM CHLORIDE 10 ML SYRINGE - SALINE FLUSH INJ (13:46)
[2024-11-07] MEDS: IOHEXOL 240 MG/ML - 10 ML VIAL INJ (13:46)
[2024-11-07] MEDS: LIDOCAINE HCL 2% 400 MG/20 ML MDV INJ (13:47)
[2024-11-07] MEDS: METHYLPREDNISOLONE ACETATE 80 MG/ML VIAL 40 MG INJ (13:47)
--- NOTE | 2024-11-07 13:48 | W.PM.PROCNOT ---
Date of procedure: 11/07/24 Pre-op diagnosis: Pain due to lumbar stenosis with neurogenic claudication Post-op diagnosis: same as pre-op Procedure: Procedure: Bilateral S1-2 transforaminal epidural steroid injection Medications: Bupivacaine 0.25% 2cc, lidocaine 2% 1cc, depomedrol 40mg The patient was seen and examined in the preoperative holding area.? Informed consent was obtained and placed on the chart.? Patient was brought to the medical procedure unit and placed in the prone position where a timeout was completed verifying the correct patient, procedure site, position, and planned special equipment using sterile aseptic technique.? Under direct fluoroscopic visualization a 25-gauge Quincke tipped spinal needle was advanced at level left S1-2 to the designated neural foramen where contrast dye was injected to show adequate spread.? There was no evidence of vascular or adverse uptake.? Epidural spread was appreciated.? The above-mentioned injectate was then placed in a 1.5 mL aliquot preceded by negative aspiration.? The needle was removed. The same procedure, at the same level, was completed on the opposite side. ? Patient was taken to the postprocedural recovery area and monitored for an appropriate length of time before found suitable for discharge in the accompaniment of a responsible adult. Anesthesia: Local Surgeon: Domi Mendosa Pathology: none sent Condition: stable Disposition: no change
== END 2024-11-07 13:52 | disposition home or self-care (01) ==
PROVIDERS: PCP Family Medicine; Visit Provider Anesthesiology
DX: M48.062 Spinal stenosis, lumbar region with neurogenic claudication (principal); M54.50 Low back pain, unspecified; E11.8 Type 2 diabetes mellitus with unspecified complications; Z79.85 Long-term (current) use of injectable non-insulin antidiabetic drugs
CPT/HCPCS: 36415; 64483; 82948; J0665; J1010; Q9966

== ENCOUNTER 2024-11-16 09:27 | Outpatient (OUT) | payer OTHER, SELFPAY ==
--- OUTSIDE RECORDS SUMMARY | 2024-11-16 09:32 | XMS_ITS | CCD ---
Author Organization [facility] Care Team Providers Care Remarketing Rep Name Role Phone Pcp, No Primary Care Provider Unavaillevy RUTHERFORD, DR JACKMAN Primary Care Unavailable PAY, DR MORENO Admitting Unavailable PAY, DR MORENO Attending Unavailable PAY, DR MORENO Consulting Unavailable SANGEETA, DR JACKMAN Primary Care Unavailable MARYANN ELLIOTT Admitting Unavailable MARYANN ELLIOTT Attending Unavailable BASILIO, DR CAPRI Kraus Consulting Unavailable MARYANN ELLIOTT Consulting Unavailable Chyna Thomas Unavailable Auugstina Rutherford MD Unavailable Augustina Rutherford MD Primary Care Provider Augustina Rutherford MD Unavailable [phone] Augustina Rutherford MD Primary Care Provider Augustina Rutherford MD Primary Care Provider Navya JACKSON, Domi Washington Attending Unavailable AUGUSTINA RUTHERFORD Attending Unavailable ALICIA BUSBY Attending Unavailable AUGUSTINA RUTHERFORD Referring Unavailable ALICIA BUSBY Referring Unavailable ALICIA BUSBY Referring Unavailable AUGUSTINA RUTHERFORD Attending Unavailable AUGUSTINA RUTHERFORD Attending Unavailable YANNA NATALIIA Attending Unavailable AUGUSTINA RUTHERFORD Referring Unavailable ALT NATALIIA Attending Unavailable WINDNAGEL, FLAKITA C Attending Unavailable MARY ALICE PEARSON Attending Unavailable WINDNAGEL, FLAKITA C Referring Unavailable Allergies Allergy Classification Reported Allergen(s) Allergy Type Date of Onset Reaction(s) Facility (1 source) Adhesive Tape Propensity to adverse reactions Unknown [facility] Other (1 source) Cefaclor Drug Allergy Unknown [facility] Other (20 sources) Iodine Drug Allergy 03--202 4 Rash [facility] Other (1 source) Beeswax Drug allergy hives [facility] Other (19 sources) Bee pollen Allergy to substance 4 [facility] (19 sources) Cefaclor Drug Allergy 4 [facility] (19 sources) Wound Dressing Adhesive Drug Allergy 4 [facility] Medications Current Medications Medication Drug Class(es) [...] Discontinued (Reorder) celecoxib 200 mg oral capsule (9 sources) Nonsteroidal Anti-inflammatory Drug Start: 09-01-2024 End: 01-24-2025 take 1 capsule by mouth in the morning celecoxib (CeleBREX) 200 MG capsule Indications: Spondylosis of lumbar region without myelopathy or radiculopathy Take 1 capsule (200 mg) by mouth in the morning and 1 capsule (200 mg) before bedtime. 60 capsule 2 10/26/2024 01/24/2025 Active Continuous Glucose [employer] (FreeStyle Bhavna 2 Vina) device (17 sources) Start: 12-15-2023 Continuous Glucose [employer] (FreeStyle Bhavna 2 Vina) device Indications: Type 2 diabetes mellitus with diabetic microalbuminuria, with long-term current use of insulin (HCC) Use prior to each dose of insulin and as needed for symptoms 1 each 12/15/2023 Active Start: 12-15-2023 Continuous Glu cose [employer] (FreeStyle Bhavna 2 Vina) device Indications: Type 2 diabetes mellitus with diabetic microalbuminuria, with long-term current use of insulin (CMS/HCC) Use prior to each dose of insulin and as needed for symptoms 1 each 12/15/2023 Active Continuous Glucose Sensor (FreeStyle Bhavna 2 Sensor) misc (20 sources) Start: 09-07-2024 Continuous Glu cose Sensor (FreeStyle Bhavna 2 Sensor) mis Indications: 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), [...] Glu cose Sensor (FreeStyle Bhavna 2 Sensor) mis Indications: 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), managed as type 1 (HCC) Wear subcutaneous daily every 14 days 6 each 3 05/26/2024 Active Start: 05-26-2024 Continuous Glu cose Sensor (FreeStyle Bhavna 2 Sensor) mis Indications: 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), [...] 14 days 6 each 3 12/15/2023 Active [id number] 0.3 ml EPINEPHrine 1 mg/ml auto-injector (19 sources) alpha-Adrenergic Agonist, beta-Adrenergic Agonist, Catecholamine Start: [...] ml insulin lispro 100 unt/ml pen injector (17 sources) Insulin Analog Start: 08-05-2024 insulin lispro [...] microalbuminuria, with long-term current use of insulin ([facility]/HCC) Take sliding scale coverage subcutaneous tid with meals; Less than 70 eat, 70-150 0(zero) units, 150-200 2 units, 200-250 4 units, >250 6 units. Maximum monthly dose 540 units 6 mL 1 12/23/2023 05/26/2024 Discontinued (Reorder) losartan potassium 100 mg oral tablet (19 sources) Angiotensin 2 Receptor Dalila Start: 07-16-2022 End: 12-15-2024 take 1 tablet by mouth once daily losartan (Cozaar) 100 MG tablet Indications: Essential hypertension Take 1 tablet (100 mg) by mouth Daily 90 tablet 09/16/2024 12/15/2024 Active nebivolol 10 mg oral tablet (11 sources) Start: 08-05-2024 End: 12-06-2024 take 1 [...] in adults (BRUCE), managed as type 1 ([facility]) Take 1 tablet (30 mg) by mouth Daily 30 tablet 05/26/2024 Active tiZANidine 4 mg oral tablet (3 sources) Central alpha-2 Adrenergic Agonist Start: 10-26-2024 [...] microalbuminuria, with long-term current use of insulin (CMS/[facility]) Take sliding scale coverage subcutaneous tid with [...] Date Documented Da te Episodic/Chronic Adjustment disorders (19 sources) Adjustment disorder with depressed mood; Translations: [Adjustment disorder with depressed mood] Onset: 06-10-2023 06-10-2023 Chronic Diabetes mellitus with complications (20 sources) Insulin treated type 2 diabetes mellitus; Translations: [Type 2 diabetes mellitus with other diabetic kidney complication] Onset: 06-10-2023 Resolved: 05-26-2024 12-29-2023 Chronic Diabetes mellitus without complication (17 sources) Type 2 diabetes mellitus without complications; [...] Onset: 12-31-2020 12-29-2023 Chronic Headache; including migraine (19 sources) Migraine with aura; Translations: [Migraine with aura, not intractable, without status migrainosus] Onset: 06-10-2023 06-10-2023 Chronic Hypertension with complications and secondary hypertension (20 sources) Hypertensive renal disease; Translations: [Hypertensive chronic kidney disease with stage 1 through stage 4 chronic kidney disease, or unspecified chronic kidney disease] Onset: 06-10-2023 12-01-2023 Chronic Other aftercare (1 source) Other truck terminal manager (current) drug therapy; Translations: [OTH [facility] CURRENT DRUG THERAPY] Onset: 07-30-2021 Episodic Other [...] respiratory infection, unspecified Episodic Residual codes; unclassified (19 sources) Dependence on enabling machine or device; Translations: [Dependence on other enabling machines and devices] Onset: 06-10-2023 06-10-2023 Chronic Residual codes; unclassified (19 sources) Obstructive sleep apnea syndrome; Translations: [Obstructive sleep apnea (adult) (pediatric)] Onset: 04-21-2017 06-10-2023 Chronic Spondylosis; intervertebral disc disorders; other back problems (6 sources) Lumbar spondylosis; Translations: [Spondylosis without myelopathy or radiculopathy, lumbar region] 10-26-2024 Chronic Superficial injury; contusion (1 source) Contusion of left thumb without damage to nail, initial encounter; Translations: [CONTUS LT THUMB NO DAMAGE NAIL INIT] Onset: 07-30-2021 Episodic Past or Other Problems Problem Classification Problem Date Documented Date Episodic/Chronic Contraceptive and procreative management (20 sources) Patient encounter status; Translations: [Encounter for procreative management, unspecified] Onset: 04-17-2016 04-17-2016 Episodic Genitourinary symptoms and ill-defined conditions (20 sources) Microalbuminuria; Translations: [Proteinuria, unspecified] Onset: 06-10-2023 12-01-2023 Episodic Malaise and fatigue (4 sources) Weakness; Translations: [WEAKNESS] Onset: 12-29-2020 Episodic Other aftercare (1 source) rn long term care (current) use of oral hypoglycemic drugs; Translations: [[facility] USE ORAL HYPOGLYCEMIC DX] Onset: 12-31-2020 Episodic Other diseases of veins and lymphatics (19 sources) Vascular insufficiency; Translations: [Venous insufficiency (chronic) (peripheral)] Onset: 06-10-2023 06-10-2023 Episodic Other nutritional; endocrine; and metabolic disorders (20 sources) Body mass index 25-29 - overweight; Translations: [Overweight] Onset: 12-15-2023 12-15-2023 Episodic Spondylosis; intervertebral disc disorders; other back problems (20 sources) Pain in the coccyx; Translations: [Sacrococcygeal disorders, not elsewhere classified] Onset: 07-09-2023 07-09-2023 Episodic Unclassified (1 source) Allergy history unknown; [...] hindered on the STIR sequence by poor [id number], in part related to body habitus. Spinal [...] (Bld) [Mass fraction] 10.9 % High <5.7 [facility] [employer] Comment on above: Result Comment: For [...] By: #### 4 96 #### [facility] [address], [address] [place] [id number] Discovery Manager: Walker Stephens MD XR LUMBAR SPINE COMPLETE [...] report is generated using voice recognition reporting (Blinkit). On occasion Astrapicribe erroneously drops words from the report or replaces the spoken word with similar sounding words. Please call with any questions/concerns regarding this report.* Dictated and transcribed 09/02/24/leslee This report has been electronically signed and approved by the interpreting radiologist. Normal Not Available HEMOGLOBIN A1con 05-19-2024 HEMOGLOBIN A1c 8.4 % of total Hgb High <5.7 [facility] Comment on above: Order Comment: FASTI [...] By: #### 4 96 #### [facility] [address], [address] [place] [address] Discovery Manager: Walker Stephens MD Insulin, fastingon 4 Insulin Qn 2.9 u[IU]/mL uIU/mL [facility] are Comment on above: Reference Range < or = 18.4 Risk: Optimal < or = 18.4 Moderate NA High >18.4 Adult cardiovascular event risk category cut points (optimal, moderate, high) are based on Insulin Reference Interval studies performed at [facility] in 2021. FASTING:YES FASTING: YES [employer] Organization Information Site ID: [id number] Name: [facility] Address: [address] , [address] [place] [phone] Director: Walker Stephens MD [facility] e AST (SGOT)on 07-26-2021 AST [Catalytic activity/Vol] 19 U/L Normal 10-40 [facility] Pensionholder Information Clerk Comment on above: Performed By: #### A ST LIPD #### [facility] [address] [place], [place] [id number] Hemoglobin A1Con 07-26-2021 EAG 294.83 Normal [facility] Pensionholder Information Clerk Comment on above: Performed By: #### A 1C #### [facility] [address] [place], [place] [id number] HbA1c (Bld) [Mass fraction] 11.9 % High 4.0-6.0 [facility] Pensionholder Information Clerk Comment on above: Performed By: #### A 1C #### [facility] [address] [facility] [place] [place] [id number] Lipid Panelon 07-26-2021 Cholesterol [Mass/Vol] 207 mg/dL High 125-200 [facility] Pensionholder Information Clerk Comment on above: Result Comment: Low risk < 200mg/dL Borderline risk 201-239 mg/dl High risk > or equal to 240 Performed By: #### A ST LIPD #### [facility] [address] [place] [id number] Cholesterol in HDL [Mass/Vol] 33 mg/dL Low >40 [facility] Pensionholder Information Clerk Comment on above: Result Comment: High Cardiovascular Risk HDL <40 mg/dL Low Cardiovascular Risk HDL > or equal to 60 mg/dl Performed By: #### A ST LIPD #### [facility] [address] [facility] [place] [id number] Cholesterol in LDL [Mass/Vol] 117 mg/dL Normal [facility] Pensionholder Information Clerk Comment on above: Result Comment: LDL ATP III CLASSIFICATION LDL less than 100 mg/dl Optimal LDL 100-129 mg/dl Near or above optimal LDL 130-159 Borderline high LDL 160-189 High LDL greater than 189 mg/dl Very High Performed By: #### A ST, LIPD #### [facility] [address] [place], [place] [id number] Cholesterol in VLDL [Mass/Vol] 57 mg/dL Normal [facility] Specialist Comment on above: Performed By: #### A ST, LIPD #### [facility] [address] [place] [id number] Cholesterol.total/C holesterol in HDL [Mass ratio] 6 {ratio} Normal [facility] Pensionholder Information Clerk Comment on above: Performed By: #### A ST, LIPD #### [facility] [address] [place], [place] [id number] Triglyceride [Mass/Vol] 284 mg/dL High 30-150 [facility] Pensionholder Information Clerk Comment on above: Result Comment: TRIG ATPIII CLASSIFICATIONS TRIG less than 150 mg/dl Normal TRIG 150-199 mg/dl Borderline High TRIG 200-500 mg/dl High TRIG greather than 500 mg/dl Very High Performed By: #### A ST LIPD #### [facility] [address] [place], [place] [id number] Comprehensive Metabolic Pane ruy 04-18-2021 Albumin [Mass/Vol] 4.4 g/dL Normal 3.6-5.1 [facility] Comment on above: Order Comment: [facility] performed at: [facility], [address] [place] [address], [phone], Jewelry Mechanic: Walker Stephens MD [facility] Date/Time: [facility] Results Received Date/Time: [facility] Reported Date/Time: Performed By: #### C MP LIPD #### [facility] [address] [place] [address] Albumin/Globulin [Mass ratio] 1.8 {ratio} Normal 1.0-2.5 [facility] Pensionholder Information Clerk Comment on above: Order Comment: [facility] performed at: [facility], [address] [facility], [address] [place] [address], [address] [place] [address], Jewelry Mechanic: Walker Stephens MD [facility] Date/Time: [facility] Received Date/Time: [facility] Reported Date/Time: Performed By: #### C MP, LIPD #### [facility] [address] [place] [address] ALP [Catalytic activity/Vol] 94 U/L Normal 36-130 [facility] Specialist Comment on above: Order Comment: [facility] performed at: [facility], [address] [place] [address], [address] [place] [address], [address] [place] [address], Jewelry Mechanic: Walker Stephens MD [facility] Date/Time: [facility] Received Date/Time: [facility] Reported Date/Time: Performed By: #### C MP, LIPD #### [facility] [address] [place] [address] ALT [Catalytic activity/Vol] 21 U/L Normal 9-46 [facility] Specialist Comment on above: Order Comment: [facility] performed at: [facility], [address] [place] [address], [address] [place] [address], [address] [place] [address], Jewelry Mechanic: Walker Stephens MD [facility] Date/Time: [facility] Received Date/Time: [facility] Reported Date/Time: Performed By: #### C MP, LIPD #### [facility] [address] [place] [address] Anion gap [Moles/Vol] 14 mmol/L Normal 12-20 [facility] Pensionholder Information Clerk Comment on above: Order Comment: [facility] performed at: [facility], [address] [place] [address], [address] [place] [address], [address] [place] [address], Jewelry Mechanic: Walker Stephens MD [facility] Date/Time: [facility] Received Date/Time: [facility] Reported Date/Time: Result Comment: Effe ctive 03/28/2019 reference range changed. Performed By: #### C MP, LIPD #### [facility] [address] [place] [address] AST [Catalytic activity/Vol] 13 U/L Normal 10-40 [facility] Comment on above: Order Comment: [facility] performed at: [facility], [address] [facility], [address] [place] [address], [address] [place] [address], Jewelry Mechanic: Walker Stephens MD [facility] Date/Time: [facility] Received Date/Time: [facility] Reported Date/Time: Performed By: #### C MP, LIPD #### [facility] [address] [place] [address] Bilirubin [Mass/Vol] 0.5 mg/dL Normal 0.2-1.2 [facility] Comment on above: Order Comment: [facility] performed at: [facility], [address] [facility], [address] [place] [address], [address] [place] [address], Jewelry Mechanic: Walker Stephens MD [facility] Date/Time: [facility] Received Date/Time: [facility] Reported Date/Time: Performed By: #### C MP, LIPD #### [facility] [address] [place] [address] BUN/CREA 20 NOT APPLICABLE Normal 6-22 [facility] Comment on above: Order Comment: [facility] performed at: [facility], [address] [facility], [address] [place] [address], [address] [place] [address], Jewelry Mechanic: Walker Stephens MD [facility] Date/Time: [facility] Received Date/Time: [facility] Reported Date/Time: Performed By: #### C MP, LIPD #### [facility] [address] [place] [address] Calcium [Mass/Vol] 9.2 mg/dL Normal 8.6-10.3 [facility] Comment on above: Order Comment: [facility] performed at: [facility], [address] [place] [address], [address] [place] [address], [address] [place] [address], Jewelry Mechanic: Walker Stephens MD [facility] Date/Time: [facility] Received Date/Time: [facility] Reported Date/Time: Performed By: #### C MP, LIPD #### [facility] [address] [place] [address] Chloride [Moles/Vol] 102 mmol/L Normal 98-110 [facility] Pensionholder Information Clerk Comment on above: Order Comment: [facility] performed at: [facility], [address] [place] [address], [address] [place] [address], [address] [place] [address], Jewelry Mechanic: Walker Stephens MD [facility] Date/Time: [facility] Received Date/Time: [facility] Reported Date/Time: Performed By: #### C MP, LIPD #### [facility] [address] [place] [address] CO2 [Moles/Vol] 24 mmol/L Normal 20-32 [facility] Pensionholder Information Clerk Comment on above: Order Comment: [facility] performed at: [employer], [address] [place] [address], [address] [place] [address], [address] [place] [address], Jewelry Mechanic: Walker Stephens MD [facility] Date/Time: [facility] Results Received Date/Time: [facility] Reported Date/Time: Performed By: #### C MP, LIPD #### [facility] [address] [place] [address] Creatinine [Mass/Vol] 0.86 mg/dL Normal 0.60-1.35 [facility] Pensionholder Information Clerk Comment on above: Order Comment: [facility] performed at: [facility], [address] [place] [address], [address] [place] [address], [address] [place] [address], Jewelry Mechanic: Walker Stephens MD [facility] Date/Time: [facility] Results Received Date/Time: [facility] Reported Date/Time: Performed By: #### C MP, LIPD #### [facility] [address] [place] [address] eGFRAA 119 mL/min/1.73m2 Normal > OR = 60 [facility] Comment on above: Order Comment: [facility] performed at: [employer], [address] [place] [address], [address] [place] [address], [address] [place] [address], Jewelry Mechanic: Walker Stephens MD [facility] Date/Time: [facility] Received Date/Time: [facility] Reported Date/Time: Performed By: #### C MP, LIPD #### [facility] [address] [place] [address] eGFRNAA 98 mL/min/1.73m2 Normal > OR = 60 [facility] Comment on above: Order Comment: [facility] performed at: [facility], [address] [place] [address], [address] [place] [address], [address] [place] [address], Jewelry Mechanic: Walker Stephens MD [facility] Date/Time: [facility] Received Date/Time: [facility] Reported Date/Time: Performed By: #### C MP, LIPD #### [facility] [address] [place] [address] Globulin (S) [Mass/Vol] 2.4 g/dL Normal 1.9-3.7 [facility] Pensionholder Information Clerk Comment on above: Order Comment: [facility] performed at: [facility], [address] [place] [address], [address] [place] [address], [address] [place] [address], Jewelry Mechanic: Walker Stephens MD [facility] Date/Time: [facility] Results Received Date/Time: [facility] Reported Date/Time: Performed By: #### C PETER, LIPD #### [facility] [address] [place] [address] Glucose [Mass/Vol] 231 mg/dL High 65-99 Amanda hooker [place] Pensionholder Information Clerk Comment on above: Order Comment: [facility] performed at: [facility], [address] [facility], [address] [place] [address], [address] [place] [address], Jewelry Mechanic: Walker Stephens MD [facility] Date/Time: [facility] Received Date/Time: [facility] Reported Date/Time: Result Comment: Fasting reference interval For someone without known diabetes, a glucose value >125 mg/dL indicates that they may have diabetes and this should be confirmed with a follow-up test. Performed By: #### C PETER, LIPD #### [facility] [address] [place] [address] Potassium [Moles/Vol] 3.7 mmol/L Normal 3.5-5.3 [facility] Pensionholder Information Clerk Comment on above: Order Comment: [facility] performed at: [employer] [facility], [address] [place] [address], [address] [place] [address], [address] [place] [address], Jewelry Mechanic: Walker Stephens MD [facility] Date/Time: [facility] Received Date/Time: [facility] Reported Date/Time: Performed By: #### C PETER, LIPD #### [facility] [address] [place] [address] Protein [Mass/Vol] 6.8 g/dL Normal 6.1-8.1 Amanda rn [place] Pensionholder Information Clerk Comment on above: Order Comment: [facility] performed at: [employer], [address] [facility], [address] [place] [address], [address] [place] [address], Jewelry Mechanic: Walker Stephens MD [facility] Date/Time: [facility] Received Date/Time: [facility] Reported Date/Time: Performed By: #### C PETER, LIPD #### [facility] [address] [place] [address] Sodium [Moles/Vol] 136 mmol/L Normal 135-146 [facility] Specialist Comment on above: Order Comment: [facility] performed at: [employer], [address] [place] [address], [address] [place] [address], [address] [place] [address], Jewelry Mechanic: Walker Stephens MD [facility] Date/Time: [facility] Received Date/Time: [facility] Reported Date/Time: Performed By: #### C PETER, LIPD #### [facility] [address] [place] [address] Urea nitrogen [Mass/Vol] 17 mg/dL Normal 7-25 [facility] Pensionholder Information Clerk Comment on above: Order Comment: [facility] performed at: [employer], [address] [place] [address], [address] [place] [address], [address] [place] [address], Jewelry Mechanic: Walker Stephens MD [facility] Date/Time: [facility] Received Date/Time: [facility] Reported Date/Time: Performed By: #### C PETER, LIPD #### [facility] [address] [place] [address] Hemoglobin A1Con 04-18-2021 HEMOGLOBIN A1c 9.3 % of total Hgb High <5.7 No rthern [place] Pensionholder Information Clerk Comment on above: Order Comment: [facility] performed at: [employer], [address] [facility], [address] [place] [address], [address] [place] [address], Jewelry Mechanic: Walker Stephens MD [facility] Date/Time: [facility] [...] A 1C #### [facility] [address] [place] [address] Lipid Panelon 04-18-2021 Cholesterol [Mass/Vol] 187 mg/dL Normal <200 [place] Pensionholder Information Clerk Comment on above: Order Comment: [facility] Testing performed at: [employer] [facility], [address] [place] [address], [address] [place] [address], [address] [place] [address], Jewelry Mechanic: Walker Stephens MD [facility] Collection Date/Time: [facility] Results Received Date/Time: [facility] Reported Date/Time: Performed By: #### C PETER, LIPD #### [facility] Default [address] [place] [address] Cholesterol in HDL [Mass/Vol] 36 mg/dL Low > OR = 40 [facility] Pensionholder Information Clerk Comment on above: Order Comment: [facility] Testing performed at: [employer] [facility], [address] [place] [address], [address] [place] [address], [address] [place] [address], Jewelry Mechanic: Walker Stephens MD [facility] Collection Date/Time: [facility] Results Received Date/Time: [facility] Reported Date/Time: Performed By: #### C PETER, LIPD #### [facility] Default [address] [place] [address] Cholesterol in LDL [Mass/Vol] 99 mg/dL Normal [facility] Pensionholder Information Clerk Comment on above: Order Comment: [facility] Testing performed at: [employer] [facility], [address] [place] [address], [address] [place] [address], [address] [place] [address], Jewelry Mechanic: Walker Stephens MD [facility] Collection Date/Time: [facility] Results Received Date/Time: [facility] Reported Date/Time: Result Comment: LDL ATP III CLASSIFICATION LDL less than 100 mg/dl Optimal LDL 100-129 mg/dl Near or above optimal LDL 130-159 Borderline high LDL 160-189 High LDL greater than 189 mg/dl Very High Performed By: #### C PETER, LIPD #### [facility] Default [address] [place] [address] Cholesterol in LDL [Mass/Vol] 114 mg/dL High [facility] Pensionholder Information Clerk Comment on above: Order Comment: [facility] Testing performed at: [employer] [facility], [address] [facility], [address] [place] [address], [phone], Jewelry Mechanic: Walker Stephens MD [facility] Collection Date/Time: [facility] Results Received Date/Time: [facility] Reported Date/Time: Result Comment: Refe rence range: <100 Desirable range <100 mg/dL for primary prevention; <70 mg/dL for patients with CHD or diabetic patients with > or = 2 CHD risk factors. LDL-C is now calculated using the Edison-Sara calculation, which is a validated novel method providing better accuracy than the Friedewald equation in the estimation of LDL-C. Edison SS et al. ESPINOZA. 2013;310(19): 9804-5391 (http://education.LoyalBlocks.Indicee/faq/BKD319) Performed By: #### C PETER, LIPD #### [facility] Default [address] [place] [address] Cholesterol in VLDL [Mass/Vol] 52 mg/dL Normal [facility] Specialist Comment on above: Order Comment: [facility] performed at: [employer] [facility], [address] , [address] [place] [address], [phone], Jewelry Mechanic: Walker Stephens MD [facility] Collection Date/Time: [facility] Results Received Date/Time: [facility] Reported Date/Time: Performed By: #### C PETER, LIPD #### [facility] Default [address] [place] [address] Cholesterol.total/C holesterol in HDL [Mass ratio] 5.2 {ratio} High <5.0 [facility] Pensionholder Information Clerk Comment on above: Order Comment: [facility] Testing performed at: [employer] [facility], [address] [place] [address], [address] [place] [address], [address] [place] [address], Jewelry Mechanic: Walker Stephens MD [facility] Collection Date/Time: [facility] Results Received Date/Time: [facility] Reported Date/Time: Performed By: #### C MP, LIPD #### [facility] Default [address] [place] [address] NON HDL CHOLESTEROL 151 mg/dL (calc) High <130 [facility] Pensionholder Information Clerk Comment on above: Order Comment: [facility] Testing performed at: [employer] [facility], [address] [facility], [address] [place] [address], [address] [place] [address], Jewelry Mechanic: Walker Stephens MD [facility] Collection Date/Time: [facility] Results Received Date/Time: [facility] Reported Date/Time: Result Comment: For patients with diabetes plus 1 major ASCVD risk factor, treating to a non-HDL-C goal of <100 mg/dL (LDL-C of <70 mg/dL) is considered a therapeutic option. Performed By: #### C MP, LIPD #### [facility] Default [address] [place] [address] Triglyceride [Mass/Vol] 259 mg/dL High <150 [facility] Pensionholder Information Clerk Comment on above: Order Comment: [facility] Testing performed at: [employer] [facility], [address] [facility], [address] [place] [address], [phone], Jewelry Mechanic: Walker Stephens MD [facility] Collection Date/Time: [facility] Results Received Date/Time: [facility] Reported Date/Time: Result Comment: If a non-fasting specimen was collected, consider repeat triglyceride testing on a fasting specimen if clinically indicated. Kevin et al. J. of Clin. Lipidol. 2015;9:129-169. Performed By: #### C PETER, LIPD #### [facility] Default [address] [place] [address] POINT OF CARE GLUCOSEon 10-0 Glucose [Mass/Vol] 128 mg/dL Critically high 74-106 T [facility] Comment on above: Performed By: #### P OCGLUC #### [facility] [address] [address] [address] Judie Torres Vital Signs Date Time Vital Sign Value Performing Clinician Facility 10-26-2024 12:06-0400 Body height 190.5 cm Flakita Lakisha FURNITURE UPHOLSTERER APPRENTICE Work Phone: [facility] 10-26-2024 12:06-0400 Body mass index (BMI) [Ratio] 32.62 kg/m2 Flakita Lakisha FURNITURE UPHOLSTERER APPRENTICE Work Phone: [facility] 10-26-2024 12:06-0400 Body weight 118.39 kg Flakita Banuelos FURNITURE UPHOLSTERER APPRENTICE Work Phone: [facility] 10-26-2024 12:06-0400 Diastolic blood pressure 90 mm[Hg] Flakita Lakisha FURNITURE UPHOLSTERER APPRENTICE Work Phone: [facility] 10-26-2024 12:06-0400 Systolic blood pressure 130 mm[Hg] Flakitachito Jarquinfamilia FURNITURE UPHOLSTERER APPRENTICE Work Phone: [facility] 09-07-2024 14:21-0400 Body height 190.5 cm Augustina Rutherford MD Work Phone: [facility] 09-07-2024 14:21-0400 Body mass index (BMI) [Ratio] 33.12 kg/m2 Augustina Rutherford MD Work Phone: [facility] 09-07-2024 14:21-0400 Body weight 120.2 kg Augustina Rutherford MD Work Phone: [facility] 09-07-2024 14:21-0400 Diastolic blood pressure 70 mm[Hg] Augustina Rutherford MD Work Phone: [facility] 09-07-2024 14:21-0400 Systolic blood pressure 126 mm[Hg] Augustina Rutherford MD Work Phone: [facility] 09-01-2024 11:04-0400 Body height 190.5 cm Alicia Busby MD Work Phone: [facility] 09-01-2024 11:04-0400 Body mass index (BMI) [Ratio] 32.5 kg/m2 Alicia Busby MD Work Phone: [facility] 09-01-2024 11:04-0400 Body weight 117.94 kg Alicia Busby MD Work Phone: [facility] 05-26-2024 08:43-0500 Body height 190.5 cm Augustina Rutherford MD Work Phone: [facility] 05-26-2024 08:43-0500 Body mass index (BMI) [Ratio] 33.12 kg/m2 Augustina Rutherford MD Work Phone: [facility] 05-26-2024 08:43-0500 Body weight 120.2 kg Augustina Rutherford MD Work Phone: [facility] 05-26-2024 08:43-0500 Diastolic blood pressure 80 mm[Hg] Augustina Rutherford MD Work Phone: [facility] 05-26-2024 08:43-0500 Systolic blood pressure 130 mm[Hg] Augustina Rutherford MD Work Phone: [facility] 12-15-2023 08:58-0400 Body height 190.5 cm Augustina Rutherford MD Work Phone: [facility] 12-15-2023 08:58-0400 Body mass index (BMI) [Ratio] 29.87 kg/m2 Augustina Rutherford MD Work Phone: [facility] 12-15-2023 08:58-0400 Body weight 108.41 kg Augustina Rutherford MD Work Phone: [facility] 12-15-2023 08:58-0400 Diastolic blood pressure 84 mm[Hg] Augustina Rutherford MD Work Phone: [facility] 12-15-2023 08:58-0400 Heart rate 72 /min Augustina Rutherford MD Work Phone: [facility] 12-15-2023 08:58-0400 SaO2% (BldA) [Mass fraction] 97 % Augustina Rutherford MD Work Phone: [facility] 12-15-2023 08:58-0400 Systolic blood pressure 136 mm[Hg] Augustina Rutherfodr MD Work Phone: [facility] 01-10-2022 10:35-0400 Body height 190.5 cm Chyna Webstermond Other [employer] Other 01-10-2022 10:35-0400 Body mass index (BMI) [Ratio] 30.62 kg/m2 Chyna Webstermond Other [employer] Other 01-10-2022 10:35-0400 Body temperature 97.1 [degF] Chyna Thomas Other [employer] Other 01-10-2022 10:35-0400 Body weight 111.13 kg Chyna Thomas Other [employer] Other 01-10-2022 10:35-0400 Respiratory rate 18 /min Chyna Webstermond Other [employer] Other 01-10-2022 10:35-0400 SaO2% (BldA) [Mass fraction] 96 % Chyna Webstermond Other [employer] Other Encounters Encounter Date Encounter Type Care Provider Facility Start: 11-14-2024 End: 11-14-2024 [facility] Start: 11-14-2024 End: 11-14-2024 Bamboo flowsheet Mary Alice Pearson PT [facility] Start: 11-14-2024 End: 11-14-2024 ambulatory MARY ALICE PEARSON Not Available Start: 11-07-2024 End: 11-07-2024 ambulatory Domi Mendosa MD Facility:[facility] Start: 10-26-2024 End: 10-26-2024 Bamboo flowsheet Flakita Bety Windnagel FURNITURE UPHOLSTERER APPRENTICE Work Phone: [facility] Start: 10-26-2024 End: 10-26-2024 Bamboo flowsheet Flakita C Windnagel FURNITURE UPHOLSTERER APPRENTICE Work Phone: [facility] Start: 10-26-2024 End: 10-26-2024 Office outpatient visit 25 minutes Flakita C Lakisha FURNITURE UPHOLSTERER APPRENTICE Work Phone: [facility] Comment on above: 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); Nontraumatic coccydynia Start: 10-26-2024 End: 10-26-2024 ambulatory FLAKITA C AMYNAGEL Not Available Start: 10-06-2024 End: 10-06-2024 Refill [...] Available Start: 09-07-2024 End: 09-07-2024 ambulatory ALICIA UBSBY Not Available Start: 09-01-2024 End: 09-01-2024 Office [...] Start: 01-04-2024 End: 01-04-2024 Bamboo flowsheet Nataliia Yanna RN [facility] Start: 01-04-2024 End: 01-04-2024 Bamboo flowsheet Nataliia Alt RN [facility] Start: 01-04-2024 End: 01-04-2024 ambulatory NATALIIA YANNA Not Available Start: 01-01-2024 End: 01-01-2024 Bamboo flowsheet Nataliia Alt RN [facility] Start: 01-01-2024 End: 01-01-2024 Bamboo flowsheet Nataliia Alt RN [facility] Start: 01-01-2024 End: 01-01-2024 ambulatory NATALIIA RAINES Not Available Start: 12-15-2023 End: 12-15-2023 Bamboo [...] with long-term current use of insulin (CMS/HCC) (Primary Dx); Type 2 diabetes mellitus with hyperglycemia, without long-term current use of insulin (CMS/HCC); Low serum C-peptide; Essential hypertension (CMS/HCC); Hypertensive nephropathy (CMS/HCC); Microalbuminuria; Mixed dyslipidemia (CMS/HCC); Overweight (BMI 25.0-29.9) Start: 12-15-2023 End: 12-15-2023 ambulatory AUGUSTINA RUTHERFORD Not Available Start: 12-07-2023 End: 12-08-2023 External Result Encounter Augustina Rutherford MD Work Phone: [facility] Unsolicited Start: 12-07-2023 End: 12-08-2023 External Result Encounter Augustina Rutherford MD Work Phone: [facility] Unsolicited Start: 01-10-2022 End: 01-10-2022 ambulatory Chyna Thomas Other [employer] Other Start: 01-10-2022 Office outpatient ne w 20 minutes Chyna Thomas [facility] Start: 07-23-2021 End: 07-23-[address] AUGUSTINA RUTHERFORD Facility:[facility] Start: 12-29-2020 End: 12-29-[address] AUGUSTINA RUTHERFORD Facility:[facility] Start: 12-12-2015 End: 12-12-2015 Telephone encounter Lynn Anthony Work Phone: OB/Gynecology Comment on above: Orders Procedures Date Procedure Procedure Detail Performing Clinician Start: 12-07-2023 Assay of insulin total Augustina Rutherford MD Work Phone: Plan of Treatment Date Care Activity Detail Author Start: 06-14-2026 Glaucoma screening Diabetes: R etinopathy Screening [facility] Start: 01-27-2025 End: 01-27-2025 Patient encounter procedure [facility] Start: 12-06-2024 Hemoglobin A1c measurement Diabetes: Hemoglobin A1C [facility] Start: 11-29-2024 End: 11-29-2024 Patient encounter procedure [facility] Start: 11-21-2024 Influenza vaccination [facility] Start: 11-18-2024 End: 11-18-2024 ambulatory 11/18/2024 10:00 AM EDT Treatment [facility] [address] [facility] [address] [place] [address] Dread Weaver PTA [facility] Start: 11-17-2024 Urine screening for protein Diabetes: Urine Protein Screening [facility] Start: 11-14-2024 End: 11-14-2024 ambulatory 11/14/2024 10:30 AM EDT Evaluation [facility] [address] [facility] [address] [place] [address] Mary Alice Pearson PT Spondylosis of lumbar region without myelopathy or radiculopathy [facility] Comment on above: 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 Start: 11-07-2024 End: 09-07-2025 Hemoglobin A1c/Hemoglobin.total in Blood Hemoglobin A1c Lab Routine 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), 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) Type 1 diabetes mellitus with hyperglycemia (HCC) Expected: 11/07/2024 (Approximate), Expires: 09/07/2025 [facility] Work Phone: Comment on above: Expected: 11/07/2024 (Approximate), Expires: 09/07/2025 Start: 10-26-2024 End: 10-26-2024 [facility] Comment on above: Arrived Start: 09-19-2024 Influenza vaccination Influenza Vacc ine (#1) [facility] Comment on above: Postponed from 11/21 (Patient Refused) Start: 09-07-2024 End: 09-07-2024 Patient encounter procedure 09/07/2024 2:30 PM EDT Office Visit [facility] [address] [facility] [address] [place] [address] Augustina Rutherford MD [address] [facility] [address] [place] [address] (Fax) [facility] Start: 09-01-2024 End: 09-01-2025 MR Lumbar spine WO contrast MR lumbar spine wo contrast Imaging Routine Coccyx pain Nontraumatic coccydynia Expected: 09/01/2024, Expires: 09/01/2025 [facility] Comment on above: Expected: 09/01/2024 , Expires: 09/01/2025 Start: 09-01-2024 End: 09-01-2025 XR Lumbar spine 4 Views [facility] Work Phone: Comment on above: Expected: 09/01/2024 , Expires: 09/01/2025 Start: 08-26-2024 End: 05-26-2025 Hemoglobin A1c/Hemoglobin.total in Blood Hemoglobin A1c Lab Routine 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), managed as type 1 (HCC) ([facility]/HCC) Expected: 08/26/2024 (Approximate), Expires: 05/26/2025 [facility] Work Phone: Comment on above: Expected: 08/26/2024 (Approximate), Expires: 05/26/2025 Start: 08-15-2024 Hemoglobin A1c measurement Diabetes: Hemoglobin A1C [facility] Start: 06-09-2024 End: 06-09-2024 Clinical Support 06/09/2024 11:00 AM EDT Clinical Support [facility] [address] [facility] [address] [place] [address] [facility] Start: 05-26-2024 End: 05-26-2024 Patient encounter procedure 05/26/2024 9:00 AM EST Office Visit [facility] [address] [facility] [address] [place] [address] Augustina Rutherford MD [address] [facility] [address] [place] [address] Essential hypertension (CMS/HCC); Hypertensive nephropathy (CMS/HCC); Type 2 diabetes mellitus with hyperglycemia, without long-term current use of insulin ([facility]/HCC); Mixed dyslipidemia (CMS/HCC); Overweight (BMI 25.0-29.9) [facility] Comment on above: Essential hypertensi on (CMS/HCC); Hypertensive nephropathy (CMS/HCC); Type 2 diabetes mellitus with hyperglycemia, without long-term current use of insulin ([facility]/HCC); Mixed dyslipidemia (CMS/HCC); Overweight (BMI 25.0-29.9) Start: 04-08-2024 Glaucoma screening Diabetes: R etinopathy Screening [facility] Start: 02-18-2024 Hemoglobin A1c measurement Diabetes: Hemoglobin A1C [facility] Start: 01-04-2024 End: 01-04-2024 Clinical Support 01/04/2024 10:30 AM EDT Clinical Support [facility] [address] [place] [address] Nataliia Raines RN [facility] Start: 12-15-2023 End: 12-15-2023 Patient encounter procedure [facility] Comment on above: Essential hypertensi on ([facility]/HCC); Hypertensive nephropathy ([facility]/HCC); Microalbuminuria; Mixed dyslipidemia ([facility]/HCC); Type 2 diabetes mellitus with hyperglycemia, without long-term current use of insulin ([facility]/HCC); Non morbid obesity due to excess calories Start: 11-22-2023 Influenza vaccination Influenza Vacc ine (#1) [facility] Start: 11-21-2020 Influenza vaccination INFLUENZA (Sea son Ended) [facility] Start: 02-19-2015 LIPID SCREEN LIPID SCREEN [facility] Start: 02-19-1999 Urine microalbumin profile DTAP,TDAP,TD (1 - Tdap) [facility] Start: 02-19-1998 HEPATITIS C SCREENING HEPATITIS C SC REEOBDULIO [facility] Start: 02-19-1998 HIV SCREENING HIV SCREENING [facility] Start: 1992 Adult depression screening assessment DEPRESSION SCREENING [facility] Payers Date Payer Category Payer Private Health Insurance [id number] 2023 Private Health Insurance [id number] 2021 Unknown BCBS BCBS [id number] 2021-Present [phone] [address] [place] [address] [id number] 2009 Private Health Insurance [employer] A ETNA CHOICE POS II [id number] 2009-Present POS [id number] 1980 Unknown [id number] 1980 Unknown [id number] [id number] 1980 Unknown [id number] [id number] 1980 Unknown [id number] [id number] 9 1980 Unknown [id number] [id number] 9 1980 Unknown [id number] [id number] 9 1980 Unknown [id number] [id number] 9 1980 Unknown [id number] [id number] 9 1980 Unknown [id number] [id number] 9 1980 Unknown [id number] [id number] 9 1980 Unknown [id number] [id number] 9 1980 Unknown [id number] [id number] 9 1980 Unknown [id number] [id number] 9 1980 Unknown [id number] [id number] 9 1959 Private Health Insurance [id number] 1959 Unknown [id number] Social History Date Type Detail Facility Tobacco smoking stat [facility] Unknown if ever smoked [facility] Start: 1980 Sex Assigned At Not on file [facility] Start: 12-15-2023 End: 09-07-2024 Sex Assigned At [facility] [employer] Other Start: 06-11-2023 [facility] Start: 06-11-2023 Tobacco use and exposure Smokeless tobacco non-user [facility] Start: 12-15-2023 End: 09-07-2024 Alcoholic beverage intake Current drinker of alcohol (finding) [facility] Start: 12-15-2023 End: 09-07-2024 Alcoholic beverage intake [facility] Start: 06-11-2023 Alcohol Comment Caffeine intak e: 1-2 cups per day soda/pop [facility] Medical Equipment Procedure Code Equipment Code Equipment Origin al Text Equipment Identifier Dates Injection subcut aneous QID as directed [id number] Start: 09-24-2024 Clinical Notes 01-02-2016 to 10-26-2024 Flakita Banuelos NP - 10/26/2024 12:00 PM Quang Rutherford [...] KwikPen 30 Units, Subcutaneous, Nightly Continuous Glucose It Solutions Architect (FreeStyle Bhavna 2 Vina) device Use prior to each dose of [...] of 40.1 to 44.9 in adult ([facility]) Bone spur Insulin resistance Migraine headache Morbid obesity ([facility]) Past Surgical History: Procedure Laterality Date [...] symmetric in all four extremities. Coordination Right: Sgejbb-rc-[id number] normal. Rapid alternating movement normal. Omzo-yh-hqlz normal.Left: Emcdsq-ia-fiom normal. Rapid alternating movement normal. Zcvv-wa-lrlr normal. Gait Casual gait is normal including [...] make further recommendations documented in this encounter [facility] 09-07-2024 History of Presen t illness Narrative [...] before bedtime. 60 capsule 11 Continuous Glucose It Solutions Architect (memory [employer] Bhavna 2 Vina) device Use prior to each dose of [...] Continuous Glucose Sensor (FreeStyle Bhavna 2 Sensor) [facility]; Wear subcutaneous daily every 14 days Dispense: [...] evaluation and management. documented in this encounter [facility] 09-01-2024 History of Presen t illness Narrative [...] pain. 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 MEDICATIONS CURRENT MEDS: Insulin [...] in all four extremities, including at least director e learning, finger abductors, biceps, triceps, deltoid, toe flexors [...] symptoms. The prescription will be sent to [facility] in [place]. A note will be sent to Dr. [...] medication. This clinical note was created utilizing [employer] ambient documentation system. All information has been thoroughly reviewed, corrected as necessary, and authenticated by the provider to ensure accuracy and completeness. On occasion, DIAN ambient documentation system erroneously drops words or replaces a spoken word with a similar sounding word. Please notify with any questions or concerns regarding this clinical note. documented in this encounter [facility] 05-26-2024 History of Presen t illness Narrative [...] Visit Medication Sig Dispense Refill Continuous Glucose It Solutions Architect (FreeStyle Bhavna 2 Vina) device Use prior to each dose of [...] adults (BRUCE), managed as type 1 (HCC) ([facility]/HCC) (Primary) I discussed with him today now [...] Continuous Glucose Sensor (FreeStyle Bhavna 2 Sensor) [facility]; Wear subcutaneous daily every 14 days Dispense: [...] referral to Neurology documented in this encounter [facility] 02-24-2024 Telephone encount er Note Reviewed and a 90 day supply was sent. [facility] 02-24-2024 Miscellaneous Notes Formattin g of this [...] morning. Patient is requesting a refill to [facility] in [place]. documented in this encounter [facility] 02-24-2024 Telephone encount er Note Laith called, he is on Basaglar insulin pen that he takes every morning. He states that he only has 1 pen left and does not show a refill. He states it goes rather quickly because he uses 20 clicks every morning. Patient is requesting a refill to [facility] in [place]. [facility] 12-15-2023 History of Presen t illness Narrative [...] microalbuminuria, with long-term current use of insulin ([facility]) We had a long discussion today concerning [...] best be served by working with the music educator in the beginning. In prescribing a new [...] 6 each; Refill: 3 - Continuous Glucose It Solutions Architect (FreeStyle Bhavna 2 Vina) device; Use prior to each dose of [...] without long-term current use of insulin (CMS/HCC) - Ambulatory referral to Diabetic Education; Future 3. Low serum C-peptide - Ambulatory referral to Diabetic Education; Future 4. Essential hypertension (CMS/HCC) Chronic problem, stable, to goal - Ambulatory referral to Diabetic Education; Future 5. Hypertensive nephropathy (CMS/HCC) - Ambulatory referral to Diabetic Education; Future 6. Microalbuminuria - Ambulatory referral to Diabetic Education; Future 7. Mixed dyslipidemia (CMS/HCC) 8. Overweight (BMI 25.0-29.9) documented in this encounter [facility] 01-10-2022 Evaluation note Encounter Date Diagnosis Assessment Notes Dec, Viral upper respiratory infection (ICD-10 - J06.9) Viral upper respiratory infection: adult home care material was printed Drink plenty fluids, get plenty of rest. Take Tylenol or Motrin for aches pains or fevers. Consider taking Sudafed or Mucinex for nasal congestion. Follow-up with your family physician if no improvement in 2 to 3 days. [employer] Other 05-03-2022 NotePROCEDURE: XR FINGER MIN 2 [...] Electronically authenticated by: CAPRI RICHMOND Date: 2021-07-23 12:20[facility] Miscellaneous Notes* Telephone Encounter - Nora Luna [...] (when she gets her positive test) prometrium. Thanks, RF * Telephone Encounter - Nora Luna RN [...] contacted while at work. Call Alena at [phone]. * Telephone Encounter - Nora Luna RN - 12/31/2015 12:14 PM EDT Left message for patient to call back for his test results. * Telephone Encounter - Lynn Anthony - 12/31/2015 12:07 PM EDT Can you please call patient and let him know his testing was normal? Thanks, Lynn * Telephone Encounter - Nora Luna RN - 12/31/2015 11:43 AM EDT Results of chromosome analysis received from [facility]: 46,XY normal male karyotype Will have scanned into [employer]. Forwarding to Dr. Anthony * Telephone Encounter - Nora Luna RN - 12/12/2015 12:54 PM EDT Spoke to patient and reviewed chart. Patient is supposed to have chromosome analysis done. Orders faxed to [employer] at [phone]. * Telephone Encounter - Sintia Caprenter - 12/12/2015 12:35 PM EDT Patients spouse calling in regards to orders placed. Spouse is inquiring why a semen analysis was ordered. Spouse had originally thought that it was going to be for a chromosomal blood test that she had as well. Spouse is inquiring if the semen analysis is needed. Please advise. 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, or unspecified Microalbuminuria Proteinuria Mixed dyslipidemia (CMS/HCC) Overweight (BMI 25.0-29.9) Overweight documented in this encounter [facility]* Diagnosis Type 2 diabetes mellitus with diabetic microalbuminuria, with long-term current use of insulin (CMS/HCC) documented in this encounter [facility] HealthcareEvaluation note* Diagnosis Latent autoimmune diabetes in [...] disorder of coccyx documented in this encounter [facility] Healthcare[facility] note* Diagnosis Coccyx pain- Primary Other disorder of coccyx Nontraumatic coccydynia documented in this encounter [facility] HealthcareEvaluation note* Diagnosis Primary hypertension Unspecified essential [...] to excess calories documented in this encounter [facility] HealthcareEvaluation note* Diagnosis 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), managed as type 1 (HCC) documented in this encounter [facility] HealthcareEvaluation note* Diagnosis 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 documented in this encounter [facility] HealthcareHistory general Narrative - Reported* Type Description Date Medical History type II diabetes Surgical History lymph node resection Surgical History adenoidectomy Hospitalization History as a child [employer] [facility] Other Reason for referral (narrative)* Consultation (Routine) - Authorized Specialty Diagnoses / Procedures Referred By Srinivasan t Referred To Contact Diabetes Education / Behavioral Health Diagnoses Type 2 diabetes mellitus with diabetic microalbuminuria, with long-term current use of insulin ([facility]) Essential hypertension ([facility]) Hypertensive nephropathy ([facility]) Microalbuminuria Type 2 diabetes mellitus with hyperglycemia, without long-term current use of insulin ([facility]) Low serum C-peptide Procedures GA OFFICE/OUTPATIENT NEW HIGH MDM 60 MINUTES Augustina Rutherford MD [address] [place] [address] Fax: [facility] [address] [place] [address] Referral ID Status Reason Start Date Expiration Date Visits Requested Visits Authorized [id number] Authorized Specialty Services Required 12/22/2023 06/19/2024 1 [facility] Consultation (Routine) - Closed Specialty Diagnoses / Procedures Referred By Srinivasan page Referred To Contact Neurology Diagnoses Coccyx pain Procedures GA OFFICE/OUTPATIENT NEW HIGH MDM 60 MINUTES Augustina Rutherford MD [address] [place] [address] Phone: tel: fax: Alicia Busby MD [address] [place] [address] Phone: tel: fax: Referral ID Status Reason Start Date Expiration Date V isits Requested Visits Authorized [id number] Closed Specialty Services Required 05/26/2024 11/22/2024 1 [...] or prosecute any alcohol or drug abuse patient.[facility] Reason for Visit (unrecogniz ed section and content) Reason Onset Date Comments Orders 12/12/2015 Reason Comments Hypertension Hyperlipidemia Diabetes Reason Comments Hypertension Hyperlipidemia Diabetes Reason Comments Med Refill (unrecognized sect ion and content) No Status Records FoundNo Status Records FoundNo Status Records FoundNo Status Records FoundNo Status Records Found INFORMATION SOURCE (unrecogn ized section and content) DATE CREATED AUTHOR 07/27/2021 [facility] Specialist DATE CREATED AUTHOR AUTHOR'S ORGANIZ ATION 07/31/2021 [facility] DATE CREATED AUTHOR AUTHOR'S ORGANIZ ATION 09/08/2024 [facility] DATE CREATED AUTHOR AUTHOR'S ORGANIZ ATION 11/13/2024 [facility] DATE CREATED AUTHOR AUTHOR'S ORGANIZ ATION 11/15/2024 [facility] dical Specialists EPIC Care Teams (unrecognized sec tion and content) Remarketing Rep Relationship Specialty Start Date End Date Augustina Rutherford MD [address] [place] [address] PCP - [facility] 06/21/21 Augustina Rutherford MD [address] [place] [address] PCP - General Family Medicine 09/18/22 Remarketing Rep Relationship Specialty Start Date End Date Augustina Rutherford MD [address] [facility] [place] [address] (Fax) PCP - [place] [facility] 06/21/21 Augustina Rutherford MD [address] [place] [address] PCP - General Family Medicine 09/18/22 Remarketing Rep Relationship Specialty Start Date End Date Augustina Rutherford MD [address] [place] [address] (Fax) PCP - [facility] 06/21/21 Augustina Rutherford MD [address] [place] [address] PCP - General Family Medicine 09/18/22 Remarketing Rep Relationship Specialty Start Date End Date Augustina Rutherford MD [address] [place] [address] (Fax) PCP - [facility] 06/21/21 Augustina Rutherford MD [address] [place] [address] (Fax) PCP - General Family Medicine 09/18/22 Remarketing Rep Relationship Specialty Start Date End Date Augustina Rutherford MD [address] [place] [address] (Fax) PCP - [facility] 06/21/21 Augustina Rutherford MD [address] [place] [phone] PCP - General Family Medicine 09/18/22 Remarketing Rep Relationship Specialty Start Date End Date Augustina Rutherford MD (Fax) PCP - General Family Medicine 09/18/22 Remarketing Rep Relationship Specialty Start Date End Date Augustina Rutherford MD (Fax) PCP - General Family Medicine 09/18/22 Remarketing Rep Relationship Specialty Start Date End Date Augustina Rutherford MD (Fax) PCP - General Family Medicine 09/18/22 Remarketing Rep Relationship Specialty Start Date End Date Augustina Rutherford MD (Fax) PCP - General Family Medicine 09/18/22 Remarketing Rep Relationship Specialty Start Date End Date Augustina Rutherford MD (Fax) PCP - General Family Medicine 09/18/22 Remarketing Rep Relationship Specialty Start Date End Date Augustina Rutherford MD (Fax) PCP - General Family Medicine 09/18/22 Remarketing Rep Relationship Specialty Start Date End Date Augustina Rutherford MD (Fax) PCP - General Family Medicine 09/18/22 Remarketing Rep Relationship Specialty Start Date End Date Augustina Rutherford MD (Fax) PCP - General Family Medicine 09/18/22 FOR [...] BE BASED ON THE PRIMARY CLINICAL RECORDS. [facility], [facility]. provides no warranty or guarantee of the accuracy or completeness of information in this document.
--- NOTE | 2024-11-16 10:03 | PM.CN ---
Consult Note: HPI Data of Consult Patient: known to practice within the last 3 years Consult date: 10/27/24 Requesting Physician: Nereida Levine NP Primary Care Provider: AUGUSTINA RUTHERFORD Consult Narrative Reason for consult: tailbone pain Narrative: Ralph Jaquez a pleasant 44 year old male presents for evaluation and management of chronic tailbone pain, referred by neurology who recommends s1/2 facet injections. recent mri consistent with degenerative changes and lumbar disc bulge. pt has failed to benefit from > 6 weeks of HEP as well as > 3 months of child care sitter, heat, ice, tylenol, nsaids. currently utilizing celebrex and tizanidine without benefit. pain today 5/10 increasing to 10/10 with sitting, lying, and sleeping. improves drastically with standing and walking. cc:: CC: Nereida Levine NP [facility] Medical History (Updated 10/27/24 @ 14:54 by Maria Guadalupe Hogan, RN) Diabetes ?E11.9 - Type 2 diabetes mellitus without complications (ICD-10) Sleep apnea ?G47.30 - Sleep apnea, unspecified (ICD-10) Asthma ?J45.909 - Unspecified asthma, uncomplicated (ICD-10) Heart murmur ?R01.1 - Cardiac murmur, unspecified (ICD-10) HTN (hypertension) ?I10 - Essential (primary) hypertension (ICD-10) Surgical History (Updated 10/27/24 @ 14:54 by Maria Guadalupe Hogan, RN) History of adenoidectomy ?Z90.89 - Acquired absence of other organs (ICD-10) Myringotomy tube(s) status ?Z96.22 - Myringotomy tube(s) status (ICD-10) Meds Home Medications and Allergies Home Medications ?Medication ?Instructions ?Recorded ?Confirmed ?Type atorvastatin 20 mg tablet 20 mg PO DAILY 10/27/24 11/07/24 History celecoxib 200 mg capsule 200 mg PO BID 10/27/24 11/07/24 History insulin glargine 100 unit/mL (3 30 unit subcut DAILY 10/27/24 11/07/24 History mL) subcutaneous pen (Basaglar KwikPen U-100 Insulin) insulin lispro 100 unit/mL 5 unit subcut DAILY 10/27/24 11/07/24 History subcutaneous pen losartan 100 mg tablet 100 mg PO DAILY 10/27/24 11/07/24 History nebivolol 10 mg tablet 10 mg PO DAILY 10/27/24 11/07/24 History Allergies Allergy/AdvReac Type Severity Reaction Status Date / Time cefaclor (From [facility]) Allergy Severe Rash Verified 11/07/24 11:13 iodine AdvReac Severe passing out Verified 11/07/24 11:13 Exam Constitutional Documenting provider has reviewed patient's vital signs: yes Common normals: no apparent distress, oriented x3, healthy appearing, alert and well nourished General appearance: cooperative HENMT Common normals: normocephalic, hearing grossly normal bilaterally and moist oral mucous membranes Head and scalp: normocephalic Eye Common normals: PERRL Pupil: PERRL Neck & C-Spine Common normals: full ROM General: normal visual inspection Chest Common normals: inspection of chest normal Respiratory Common normals: normal respiratory effort, no retractions and no use of accessory muscles Back & Pelvis Lumbar spine/lower back: no pain with ROM and no lumbar spinal tenderness Sacroiliac joints: SI joints normal Coccyx: tenderness (intermittent S1/2 pain/radiculopathy ) on direct palpation Other: significant coccyx pain with sitting and lying strength 5/5 in BLE Neuro Common normals: oriented x3 Sensorium/orientation: alert Psych Common normals: mental status grossly normal, thought process normal, cooperative, affect normal, speech normal and activity/motor behavior normal Speech: normal speech Thought process: normal thought process Results Additional Findings Additional findings: If on a controlled substance or opioids, I have checked an [place] report on this patient and there are no aberrancies noted in the prescribing history.??If on a controlled substance or opioid a drug screen was completed and reviewed within the last year, and if there has not been a drug screen completed we ordered one today to monitor higher risk, state monitored pain medication use. As part of providing excellent, safe, comprehensive care, the following was completed at our patient's visit: 1. A medication reconciliation and review to ensure accurate knowledge of current/active medications, including asking our patients to inform us about any [id number] medications or herbal remedies/nutritional supplements/alternative remedies. 2. A review to specifically ensure our patients have had annual screening for screening for depression, screening for tobacco use, and screening for unhealthy alcohol use. For concerning screenings had a discussion with the patient, provided patient education, and recommended follow-up with primary care provider when appropriate. If patient noted with a risk of falling, they received education on strength, gait, and balance training to prevent future risk of falling. Portions of this note may have been carried over from the previous visit and updated as appropriate. Please note this office utilizes paper charting in addition to the electronic medical record. A list of current medications, vitals, and PMH is available there as the clinical staff outside of myself do not have access to [employer] charting during the clinic day operations. As part of providing quality comprehensive care the current medications, vitals, and PMH were reviewed in the paper chart. Assessment and Plan Assessment and Plan (1) Coccydynia: Assessment and Plan: 11/07/24 bilateral S1 TFESI Plan 44 year old male with severe tailbone pain for 3 years without injury, minimal exam findings as noted above. neurology recommending pt undergo sacral facet injections, which are not an option. we trialed bilateral S1 TFESIs without improvement. at this time recommend pt be evaluated by sports medicine, and consider sacrococcygeal ligament injections if appropriate.
== END 2024-11-16 09:28 | disposition home or self-care (01) ==
LOC: PM 09:27
PROVIDERS: PCP Family Medicine; Visit Provider Nurse Practitioner
DX: M53.3 Sacrococcygeal disorders, not elsewhere classified (principal)
CPT/HCPCS: G0463